=== PATIENT | male | born 1960 | race Caucasian/White ===

== ENCOUNTER 2016-09-17 17:31 | Emergency (ER) | payer OTHER ==
--- NOTE | 2016-09-17 18:21 | ED CLINICAL REPORT ---
Clinical Report - Physicians/Mid Levels [facility] [address] [place] [address] 09/17/2016 17:32 Patient: ALEX ALTAMIRANO Time Seen: 17:58; initial patient contact, initial documentation, patient care assumed. Arrived- By private vehicle. Historian- patient. HISTORY OF PRESENT ILLNESS Chief Complaint: BACK PAIN and CHRONIC BACK PAIN. Modifying factors- worsened by walking, rotation of the body to the right or left, bending over or lifting. Relieved by taking prescription medications. Not relieved by anything. It is described as being severe. It is described as being in the area of the mid lumbar spine, lower lumbar spine, right mid lumbar spine, right lower lumbar spine and right SI joint. It is described as radiating to the right hip. The quality is noted to be "pain" and similar to prior episodes. Onset- years ago and it is still present (worse 3 days ago). No bladder dysfunction, bowel dysfunction, sensory loss or motor loss. ( none). Patient denies an injury but injury to the head or neck. No other injury. Similar symptoms previously: Chronically, as bad. Recent medical care: The patient was seen recently in the office. ( went dr for mri and was told he had arthritis and pinched nerve, awaiting to get into ortho according to [facility], [facility]). REVIEW OF SYSTEMS No fever, difficulty with urination, urinary frequency, hematuria or difficulty breathing. No chest pain or abdominal pain. All systems otherwise negative, except as recorded above. PAST HISTORY See nurses notes. PROBLEMS: Insomnia [Active]. Carotid Artery Disease [Active]. Congestive Heart Failure [Active]. --17:50 Tracey Le R.N. Nerve, pinched. Bipolar Disorder. Upper Extremity Pain. Back Injury. Sciatica. Heart Disease. Insomnia. Substance Abuse. Back Pain. Arthritis. UTI - Urinary Tract Infection. Depression. Nausea. Costochondritis. URI. Migraine Headache. Dental Abscess. Gastroenteritis. Hypercholesterolemia. Dental Pain. Hypertension. Manic bipolar I disorder. --17:50 Tracey Le R.N. Arthritis. --17:50 Tracey Le R.N. ADDITIONAL SURGERIES: Back Surgery. Coronary Artery Bypass Graft. --17:50 Tracey Le R.N. SOCIAL HISTORY Light tobacco smoker. Occasional alcohol use. History of occasional drug use: marijuana. Is a local resident. FAMILY HISTORY Negative. ADDITIONAL NOTES The nursing notes have been reviewed with agreement regarding the chief complaint, HPI, ROS, PMH and patient medications and allergies. PHYSICAL EXAM Vital Signs: 09/17/2016 17:45 BP: 157/88. HR: 97. RR: 20. O2 saturation: 98%. Temp: 98 F. Pain level now: 05/29. Have been reviewed as normal and appear to be correct. Appearance: Alert. No acute distress. Neck: Normal inspection. Neck nontender. Painless ROM. CVS: Heart sounds normal. Pulses normal. Respiratory: No respiratory distress. Breath sounds normal. Abdomen: No visible injury. Soft and nontender. Moderately obese. Back: Abnormal inspection. Back tenderness present. Mild vertebral point tenderness over the mid and lower lumbar spine. Soft tissue tenderness in the right mid and lower lumbar area. No painless ROM. Mildly limited ROM in the back- in the lumbar spine: decreased flexion, right lateral bending, left lateral bending and rotation to the right and left. No muscle spasm in the back or CVA tenderness. Skin: Skin warm and dry. Normal skin color. No rash. Normal skin turgor. Extremities: Extremities exhibit normal ROM. Extremities nontender. Neuro: Oriented X 3. Mood/affect normal. No motor deficit. No sensory deficit. PROGRESS AND PROCEDURES Course of Care: 18:12 09/17/16. pt has long [facility] for frequent er visits, #32, and various narcs and controlled substances, see report for full details pt is well known to me and er staff. Patient counseled in person regarding the patient's stable condition, test results and diagnosis. 18:21. Differential Diagnosis: I considered Musculo-skeletal strain, contusion, disk protrusion, vertebral fracture, sacroiliac joint strain, sciatica, osteoarthritis, lumbar spondylosis, spinal stenosis and sacroiliac joint inflammation as a possible cause of back pain in this patient. This is a partial list of diagnoses considered. (substance abuse, chronic pain). Above considerations are based on history and physical exam. Differential diagnosis was discussed with patient. Disposition: Discharged home in good and improved condition (18:21). Condition: good and stable. CLINICAL IMPRESSION Chronic nontraumatic lumbar back pain. Sciatica present on the right. INSTRUCTIONS Warnings: GENERAL WARNINGS: Return or contact your physician immediately if your condition worsens or changes unexpectedly, if not improving as expected, or if other problems arise. SPECIFICALLY, return if you develop numbness or incontinence of feces (loss of bowel control) or urine (loss of bladder control). Prescription Medications: Toradol 10 mg tablets: Take 1 tablet orally every 6 hours as needed. Dispense fifteen (15). No refills. Substitution is permissible. Medrol Dosepak: take according to package directions. Dispense one (1) dosepak. No refills. Substitution is permissible. Follow-up: Follow up with your doctor in about one week even if well. Call for an appointment. Summary of care provided to patient. Understanding of the discharge instructions verbalized by patient. (Electronically signed by Phylicia Hassan A.R.NBharati 09/17/2016 22:35)
--- NOTE | 2016-09-17 18:21 | ED NURSING NOTES ---
Clinical Report - Nurses [facility] [address] [place] [address] 09/17/2016 17:32 Patient: ALEX ALTAMIRANO TRIAGE Triage time 17:45. Acuity: LEVEL 3. Chief Complaint: BACK PAIN and (Lower back pain, Chronic, pinched nerve. Bad for last days, tsoday worst.). Alert. No acute distress. KELLEY COMA SCORE: [place] Coma Scale: 15- eyes open spontaneously (4); best verbal response- oriented x 4 (5); best motor response- obeys commands (6). --17:53 Tracey Le R.N. 17:45 09/17/16. BP: 157/88. HR: 97. RR: 20. O2 saturation: 98%. Temp: 98 F. Pain level now: 05/29. --17:53 Tracey Le R.N. 17:45 09/17/16. BP: 157/88. HR: 97. RR: 20. O2 saturation: 98%. Temp: 98 F. Pain level now: 05/29. --17:53 Tracey Le R.N. Chief Complaint: (Had MRI 2 weeks ago). --17:57 Tracey Le R.N. Weight: 130.6 kg stated. Height/Length: 66 inches Per Patient. BMI: 46.5. --17:50 Tracey Le R.N. Medications Allopurinol Oral 40mg , 2x a day. AmLODIPine Besylate Oral (pt unsure of dose ). Aspirin Oral (Tablet 81 mg), daily. Atorvastatin Calcium Oral, daily (pt unsure of dose ). BuPROPion HCl Oral (pt unsure of dose ). Carvedilol Phosphate ER Oral (pt unsure of dose ). Cyclobenzaprine HCl Oral. Gabapentin Oral 300 mg, daily. Ketorolac Tromethamine Oral. Lasix Oral 40 mg, daily. Latuda Oral (pt unsure of dose ). Lisinopril Oral 20 mg, daily. Plavix Oral 75 mg, daily. Zofran Oral 4 mg, as needed. --17:48 Tracey Le R.N. Medication/allergy information source: the patient and patient's family. --17:53 Tracey Le R.N. Allergies Latex. Definite Moderate(rash) --17:48 Tracey Le R.N. History Arrived by private vehicle. Historian: patient and family. Primary physician (jeremy at [facility]). This is a recurrent problem. (3 days). ( Pinched nerve). No history of recent trauma. 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 (flexeril,). PAST MEDICAL HX: Tetanus status: unknown. SOCIAL HX: Light tobacco smoker (cigarette)- less than 1/2 a pack per day. Alcohol use; consumes beer occasionally. History of drug use: marijuana. Recently used drugs today. No infectious disease exposure. FALL RISK ASSESSMENT: Fall risk assessment completed. No fall risk identified. NUTRITIONAL RISK ASSESSMENT: The nutritional risk assessment revealed no deficiencies. FUNCTIONAL ASSESSMENT: Functional assessment: no impairments noted. LEARNING NEEDS ASSESSMENT: The learning needs assessment revealed no barriers. SKIN INTEGRITY ASSESSMENT: Skin integrity risk assessment completed. No skin integrity risk identified. --17:53 Tracey Le R.N. PROBLEMS: Insomnia [Active]. Carotid Artery Disease [Active]. Congestive Heart Failure [Active]. --17:50 Tracey Le R.N. Nerve, pinched. Bipolar Disorder. Upper Extremity Pain. Back Injury. Sciatica. Heart Disease. Insomnia. Substance Abuse. Back Pain. Arthritis. UTI - Urinary Tract Infection. Depression. Nausea. Costochondritis. URI. Migraine Headache. Dental Abscess. Gastroenteritis. Hypercholesterolemia. Dental Pain. Hypertension. Manic bipolar I disorder. --17:50 Tracey Le R.N. Arthritis. --17:50 Tracey Le R.N. ADDITIONAL SURGERIES: Back Surgery. Coronary Artery Bypass Graft. --17:50 Tracey Le R.N. Interventions ID band on patient. To room. --17:53 Tracey Le R.N. PHYSICAL ASSESSMENT Ambulatory to room. Patient gowned. GENERAL / NEURO / PSYCH: Alert. Oriented X 4. Appears in pain. RESPIRATORY: Respirations not labored. CVS: Capillary refill less than 2 seconds. GI / : Abdomen nontender. EXTREMITIES: Limited ROM present. Sensation intact in extremities. BACK: Limited ROM of the back. --17:56 Tracey Le R.N. NURSING PROGRESS NOTES Patient gowned. Head of bed elevated. Two patient identifiers checked. Call light placed in reach. Side rails up x 2. Bed placed in lowest position. Brakes of bed on. Patient ready for evaluation. --17:56 Tracey Le R.N. 18:40 09/17/2016 Decadron (Dexamethasone Sodium Phosphate) IM 8 mg given. Given in the left gluteus adelaide. Allergies verified and confirmed 5 rights. --20:06 Tracey Le R.N. 18:43 09/17/2016 Toradol (Ketorolac Tromethamine) IM 60 mg given. Given in the right gluteus adelaide. Allergies verified and confirmed 5 rights. --20:05 Tracey Le R.N. DISPOSITION / DISCHARGE 18:43. Condition at departure: improved. No learning barriers present. Discharge instructions provided and reviewed with the patient and spouse. Reviewed medication(s) side effects, precautions, dosing and course information. Patient verbalized understanding. Written instructions provided in Peruvian. The patient was discharged home and accompanied by spouse. He left the Emergency Department ambulatory and via private vehicle. Spouse driving. Medication list reviewed and validated. --20:07 Tracey Le R.N. 17:45 09/17/16. BP: 157/88. HR: 97. RR: 20. O2 saturation: 98%. Temp: 98 F. Pain level now: 05/29. --20:07 Tracey Le R.N. Locked/Released at 09/17/2016 20:18 by Tracey Le R.N.
--- NOTE | 2016-09-17 18:21 | ED NURSING NOTES ---
Clinical Report - Nurses [facility] [address] [place] [address] 09/17/2016 17:32 Patient: ALEX ALTAMIRANO TRIAGE Triage time 17:45. Acuity: LEVEL 3. Chief Complaint: BACK PAIN and (Lower back pain, Chronic, pinched nerve. Bad for last days, tsoday worst.). Alert. No acute distress. KELLEY COMA SCORE: [place] Coma Scale: 15- eyes open spontaneously (4); best verbal response- oriented x 4 (5); best motor response- obeys commands (6). --17:53 Tracey Le R.N. 17:45 09/17/16. BP: 157/88. HR: 97. RR: 20. O2 saturation: 98%. Temp: 98 F. Pain level now: 05/29. --17:53 Tracey Le R.N. 17:45 09/17/16. BP: 157/88. HR: 97. RR: 20. O2 saturation: 98%. Temp: 98 F. Pain level now: 05/29. --17:53 Tracey Le R.N. Chief Complaint: (Had MRI 2 weeks ago). --17:57 Tracey Le R.N. Weight: 130.6 kg stated. Height/Length: 66 inches Per Patient. BMI: 46.5. --17:50 Tracey Le R.N. Medications Allopurinol Oral 40mg , 2x a day. AmLODIPine Besylate Oral (pt unsure of dose ). Aspirin Oral (Tablet 81 mg), daily. Atorvastatin Calcium Oral, daily (pt unsure of dose ). BuPROPion HCl Oral (pt unsure of dose ). Carvedilol Phosphate ER Oral (pt unsure of dose ). Cyclobenzaprine HCl Oral. Gabapentin Oral 300 mg, daily. Ketorolac Tromethamine Oral. Lasix Oral 40 mg, daily. Latuda Oral (pt unsure of dose ). Lisinopril Oral 20 mg, daily. Plavix Oral 75 mg, daily. Zofran Oral 4 mg, as needed. --17:48 Tracey Le R.N. Medication/allergy information source: the patient and patient's family. --17:53 Tracey Le R.N. Allergies Latex. Definite Moderate(rash) --17:48 Tracey Le R.N. History Arrived by private vehicle. Historian: patient and family. Primary physician (jeremy at [facility]). This is a recurrent problem. (3 days). ( Pinched nerve). No history of recent trauma. 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 (flexeril,). PAST MEDICAL HX: Tetanus status: unknown. SOCIAL HX: Light tobacco smoker (cigarette)- less than 1/2 a pack per day. Alcohol use; consumes beer occasionally. History of drug use: marijuana. Recently used drugs today. No infectious disease exposure. FALL RISK ASSESSMENT: Fall risk assessment completed. No fall risk identified. NUTRITIONAL RISK ASSESSMENT: The nutritional risk assessment revealed no deficiencies. FUNCTIONAL ASSESSMENT: Functional assessment: no impairments noted. LEARNING NEEDS ASSESSMENT: The learning needs assessment revealed no barriers. SKIN INTEGRITY ASSESSMENT: Skin integrity risk assessment completed. No skin integrity risk identified. --17:53 Tracey Le R.N. PROBLEMS: Insomnia [Active]. Carotid Artery Disease [Active]. Congestive Heart Failure [Active]. --17:50 Tracey Le R.N. Nerve, pinched. Bipolar Disorder. Upper Extremity Pain. Back Injury. Sciatica. Heart Disease. Insomnia. Substance Abuse. Back Pain. Arthritis. UTI - Urinary Tract Infection. Depression. Nausea. Costochondritis. URI. Migraine Headache. Dental Abscess. Gastroenteritis. Hypercholesterolemia. Dental Pain. Hypertension. Manic bipolar I disorder. --17:50 Tracey Le R.N. Arthritis. --17:50 Tracey Le R.N. ADDITIONAL SURGERIES: Back Surgery. Coronary Artery Bypass Graft. --17:50 Tracey Le R.N. Interventions ID band on patient. To room. --17:53 Tracey Le R.N. PHYSICAL ASSESSMENT Ambulatory to room. Patient gowned. GENERAL / NEURO / PSYCH: Alert. Oriented X 4. Appears in pain. RESPIRATORY: Respirations not labored. CVS: Capillary refill less than 2 seconds. GI / : Abdomen nontender. EXTREMITIES: Limited ROM present. Sensation intact in extremities. BACK: Limited ROM of the back. --17:56 Tracey Le R.N. NURSING PROGRESS NOTES Patient gowned. Head of bed elevated. Two patient identifiers checked. Call light placed in reach. Side rails up x 2. Bed placed in lowest position. Brakes of bed on. Patient ready for evaluation. --17:56 Tracey Le R.N. 18:40 09/17/2016 Decadron (Dexamethasone Sodium Phosphate) IM 8 mg given. Given in the left gluteus adelaide. Allergies verified and confirmed 5 rights. --20:06 Tracey Le R.N. 18:43 09/17/2016 Toradol (Ketorolac Tromethamine) IM 60 mg given. Given in the right gluteus adelaide. Allergies verified and confirmed 5 rights. --20:05 Tracey Le R.N. DISPOSITION / DISCHARGE 18:43. Condition at departure: improved. No learning barriers present. Discharge instructions provided and reviewed with the patient and spouse. Reviewed medication(s) side effects, precautions, dosing and course information. Patient verbalized understanding. Written instructions provided in Scottish. The patient was discharged home and accompanied by spouse. He left the Emergency Department ambulatory and via private vehicle. Spouse driving. Medication list reviewed and validated. --20:07 Tracey Le R.N. 17:45 09/17/16. BP: 157/88. HR: 97. RR: 20. O2 saturation: 98%. Temp: 98 F. Pain level now: 05/29. --20:07 Tracey Le R.N. Locked/Released at 09/17/2016 20:18 by Tracey Le R.N.
--- NOTE | 2016-09-17 22:35 | ED DISCHARGE INSTRUCTIONS ---
Patient: ALEX ALTAMIRANO General Instructions [facility] VisitID: [id number] [place] [address] 56y, M Registration Date/Time: 09/17/2016 Chronic nontraumatic lumbar back pain. Sciatica present on the right. INSTRUCTIONS Warnings: GENERAL WARNINGS: Return or contact your physician immediately if your condition worsens or changes unexpectedly, if not improving as expected, or if other problems arise. SPECIFICALLY, return if you develop numbness or incontinence of feces (loss of bowel control) or urine (loss of bladder control). Prescription Medications: Toradol 10 mg tablets: Take 1 tablet orally every 6 hours as needed. Dispense fifteen (15). No refills. Substitution is permissible. Medrol Dosepak: take according to package directions. Dispense one (1) dosepak. No refills. Substitution is permissible. Follow-up: Follow up with your doctor in about one week even if well. Call for an appointment. Summary of care provided to patient. Understanding of the discharge instructions verbalized by patient. ADDITIONAL INFORMATION Back Pain [Acute Or Chronic] Back pain is usually caused by an injury to the muscles or ligaments of the spine. Sometimes the disks that separate each bone in the spine may bulge and cause pain by pressing on a nearby nerve. Back pain may also appear after a sudden twisting/bending force (such as in a car accident), after a simple awkward movement, or lifting something heavy with poor body positioning. In either case, muscle spasm is often present and adds to the pain. Acute back pain usually gets better in one to two weeks. Back pain related to disk disease, arthritis in the spinal joints or spinal stenosis (narrowing of the spinal canal) can become chronic and last for months or years. Unless you had a physical injury (for example, a car accident or fall) X-rays are usually not ordered for the initial evaluation of back pain. If pain continues and does not respond to medical treatment, x-rays and other tests may be performed at a later time. Home Care: You may need to stay in bed the first few days. But, as soon as possible, begin sitting or walking to avoid problems with prolonged bed rest (muscle weakness, worsening back stiffness and pain, blood clots in the legs). When in bed, try to find a position of comfort. A firm mattress is best. Try lying flat on your back with pillows under your knees. You can also try lying on your side with your knees bent up towards your chest and a pillow between your knees. Avoid prolonged sitting. This puts more stress on the lower back than standing or walking. During the first two days after injury, apply an ICE PACK to the painful area for 20 minutes every 2-4 hours. This will reduce swelling and pain. HEAT (hot shower, hot bath or heating pad) works well for muscle spasm. You can start with ice, then switch to heat after two days. Some patients feel best alternating ice and heat treatments. Use the one method that feels the best to you. You may use acetaminophen (Tylenol) or ibuprofen (Motrin, Advil) to control pain, unless another pain medicine was prescribed. [NOTE: If you have chronic liver or kidney disease or ever had a stomach ulcer or GI bleeding, talk with your doctor before using these medicines.] Be aware of safe lifting methods and do not lift anything over 15 pounds until all the pain is gone. Follow Up with your doctor or this facility if your symptoms do not start to improve after one week. Physical therapy may be needed. [NOTE: If X-rays were taken, they will be reviewed by a radiologist. You will be notified of any new findings that may affect your care.] Get Prompt Medical Attention if any of the following occur: Pain becomes worse or spreads to your legs Weakness or numbness in one or both legs Loss of bowel or bladder control Numbness in the groin or genital area Sciatica Sciatica ("Lumbar Radiculopathy") causes a pain that spreads from the lower back down into the buttock, hip and leg. Sometimes leg pain can occur without any back pain. Sciatica is due to irritation or pressure on a spinal nerve as it comes out of the spinal canal. This is most often due to a bulge or rupture of a nearby spinal disk (the cartilage cushion between each spinal bone), which presses on a nearby nerve. Other causes include spinal stenosis (narrowing of the spinal canal) and spasm of the pyriform muscle (a muscle in the buttocks that the sciatic nerve passes through). Sciatica may begin after a sudden twisting/bending force (such as in a car accident), or sometimes after a simple awkward movement. In either case, muscle spasm is commonly present and contributes to the pain. The diagnosis of sciatica is made from the symptoms and physical exam. Unless you had a physical injury (such as a car accident or fall), X-rays are usually not ordered for the initial evaluation of sciatica because the nerves and disks cannot be seen on an x-ray. If signs of a compressed nerve are present (for example, loss of tendon reflex or strength in the leg), an MRI (magnetic resonance imaging) scan will need to be scheduled as an outpatient. Most sciatica (80-90%) gets better with medicine, exercise, physical therapy. If symptoms continue after at least three months of medical treatment, surgery may be considered. Home Care: You may need to stay in bed the first few days. But, as soon as possible, begin sitting or walking to avoid problems with prolonged bed rest. When in bed, try to find a position of comfort. A firm mattress is best. Try lying flat on your back with pillows under your knees. You can also try lying on your side with your knees bent up towards your chest and a pillow between your knees. Avoid prolonged sitting. This puts more stress on the lower back than standing or walking. Some persons find relief with heat (hot shower, hot bath or heating pad) and massage, while others prefer cold packs (crushed or cubed ice in a plastic bag, wrapped in a towel). Try both and use the method that feels best for 20 minutes several times a day. You may use acetaminophen (Tylenol) or ibuprofen (Motrin, Advil) to control pain, unless another pain medicine was prescribed. [ NOTE: If you have chronic liver or kidney disease or ever had a stomach ulcer or GI bleeding, talk with your doctor before using these medicines.] Be aware of safe lifting methods and do not lift anything over 15 pounds until all the pain is gone. Follow Up with your doctor or this facility if your symptoms do not start to improve after one week. Physical therapy or further testing may be needed. [NOTE: If X-rays were taken, they will be reviewed by a radiologist. You will be notified of any new findings that may affect your care.] Get Prompt Medical Attention if any of the following occur: Pain becomes worse, not controlled by the prescribed medicine Weakness or numbness in one or both legs Numbness in the groin, genital area Loss of bowel or bladder control Ketorolac Tromethamine Oral tablet What is this medicine? KETOROLAC (elder toe ROLE ak) is a non-steroidal anti-inflammatory drug (NSAID). It is used for a short while to treat moderate to severe pain, including pain after surgery. It should not be used for more than 5 days. How should I use this medicine? Take this medicine by mouth with a full glass of water. Follow the directions on the prescription label. Take your medicine at regular intervals. Do not take your medicine more often than directed. Do not take more than the recommended dose. A special MedGuide will be given to you by the pharmacist with each prescription and refill. Be sure to read this information carefully each time. Talk to your commercial relationship manager regarding the use of this medicine in children. While this drug may be prescribed for children as young as 16 years of age for selected conditions, precautions do apply. Patients over 65 years old may have a stronger reaction and need a smaller dose. What side effects may I notice from receiving this medicine? Side effects that you should report to your doctor or health pet care technician as soon as possible: allergic reactions like skin rash, itching or hives, swelling of the face, lips, or tongue black or tarry stools breathing problems changes in vision chest pain high blood pressure nausea or vomiting redness, blistering, peeling or loosening of the skin, including inside the mouth severe abdominal pain slurred speech or weakness on one side of the body unexplained weight gain or swelling unusual bleeding or bruising unusually weak or tired yellowing of eyes or skin Side effects that usually do not require medical attention (report to your doctor or health pet care technician if they continue or are bothersome): diarrhea dizziness headache heartburn What may interact with this medicine? Do not take this medicine with any of the following medications: aspirin and aspirin-like medicines cidofovir methotrexate NSAIDs, medicines for pain and inflammation, like ibuprofen or naproxen pemetrexed probenecid This medicine may also interact with the following medications: alcohol alendronate alprazolam carbamazepine cyclosporine diuretics flavocoxid fluoxetine ginkgo lithium medicines for high blood pressure like enalapril medicines that affect platelets like pentoxifylline medicines that treat or prevent blood clots like heparin, warfarin muscle relaxants phenytoin steroid medicines like prednisone or cortisone thiothixene What if I miss a dose? If you miss a dose, take it as soon as you can. If it is almost time for your next dose, take only that dose. Do not take double or extra doses. Where should I keep my medicine? Keep out of the reach of children. Store at room temperature between 20 and 25 degrees C (68 and 77 degrees F). Throw away any unused medicine after the expiration date. What should I tell my health care provider before I take this medicine? They need to know if you have any of these conditions: asthma bleeding problems like hemophilia cigarette smoker drink more than 3 alcohol containing drinks a day heart disease or circulation problems such as heart failure or leg edema (fluid retention) high blood pressure kidney disease liver disease stomach bleeding or ulcers an unusual or allergic reaction to ketorolac, aspirin, other NSAIDs, other medicines, foods, dyes, or preservatives or trying to get breast-feeding What should I watch for while using this medicine? Tell your doctor or health pet care technician if your pain does not get better. Talk to your doctor before taking another medicine for pain. Do not treat yourself. This medicine does not prevent heart attack or stroke. In fact, this medicine may increase the chance of a heart attack or stroke. The chance may increase with longer use of this medicine and in people who have heart disease. If you take aspirin to prevent heart attack or stroke, talk with your doctor or health pet care technician. Do not take medicines such as ibuprofen and naproxen with this medicine. Side effects such as stomach upset, nausea, or ulcers may be more likely to occur. Many medicines available without a prescription should not be taken with this medicine. This medicine can cause ulcers and bleeding in the stomach and intestines at any time during treatment. Do not smoke cigarettes or drink alcohol. These increase irritation to your stomach and can make it more susceptible to damage from this medicine. Ulcers and bleeding can happen without warning symptoms and can cause . You may get drowsy or dizzy. Do not drive, use machinery, or do anything that needs mental alertness until you know how this medicine affects you. Do not stand or sit up quickly, especially if you are an older patient. This reduces the risk of dizzy or fainting spells. This medicine can cause you to bleed more easily. Try to avoid damage to your teeth and gums when you brush or floss your teeth. Methylprednisolone Oral tablet What is this medicine? METHYLPREDNISOLONE (meth ill pred NISS oh lone) is a corticosteroid. It is commonly used to treat inflammation of the skin, joints, lungs, and other organs. Common conditions treated include asthma, allergies, and arthritis. It is also used for other conditions, such as blood disorders and diseases of the adrenal glands. How should I use this medicine? Take this medicine by mouth with a drink of water. Follow the directions on the prescription label. Take it with food or milk to avoid stomach upset. If you are taking this medicine once a day, take it in the morning. Do not take more medicine than you are told to take. Do not suddenly stop taking your medicine because you may develop a severe reaction. Your doctor will tell you how much medicine to take. If your doctor wants you to stop the medicine, the dose may be slowly lowered over time to avoid any side effects. Talk to your commercial relationship manager regarding the use of this medicine in children. Special care may be needed. What side effects may I notice from receiving this medicine? Side effects that you should report to your doctor or health pet care technician as soon as possible: allergic reactions like skin rash, itching or hives, swelling of the face, lips, or tongue eye pain, decreased or blurred vision, or bulging eyes fever, sore throat, sneezing, cough, or other signs of infection, wounds that will not heal increased thirst mental depression, mood swings, mistaken feelings of self importance or of being mistreated pain in hips, back, ribs, arms, shoulders, or legs swelling of the ankles, feet, hands trouble passing urine or change in the amount of urine Side effects that usually do not require medical attention (report to your doctor or health pet care technician if they continue or are bothersome): confusion, excitement, restlessness headache nausea, vomiting skin problems, acne, thin and shiny skin weight gain What may interact with this medicine? Do not take this medicine with any of the following medications: mifepristone This medicine may also interact with the following medications: tacrolimus vaccines warfarin What if I miss a dose? If you miss a dose, take it as soon as you can. If it is almost time for your next dose, talk to your doctor or health pet care technician. You may need to miss a dose or take an extra dose. Do not take double or extra doses without advice. Where should I keep my medicine? Keep out of the reach of children. Store at room temperature between 20 and 25 degrees C (68 and 77 degrees F). Throw away any unused medicine after the expiration date. What should I tell my health care provider before I take this medicine? They need to know if you have any of these conditions: Stephenie's syndrome diabetes glaucoma heart problems or disease high blood pressure infection such as herpes, measles, tuberculosis, or chickenpox kidney disease liver disease mental problems myasthenia gravis osteoporosis seizures stomach ulcer or intestine disease including colitis and diverticulitis thyroid problem an unusual or allergic reaction to lactose, methylprednisolone, other medicines, foods, dyes, or preservatives or trying to get breast-feeding What should I watch for while using this medicine? Visit your doctor or health pet care technician for regular checks on your progress. If you are taking this medicine for a long time, carry an identification card with your name and address, the type and dose of your medicine, and your doctor's name and address. The medicine may increase your risk of getting an infection. Stay away from people who are sick. Tell your doctor or health pet care technician if you are around anyone with measles or chickenpox. If you are going to have surgery, tell your doctor or health pet care technician that you have taken this medicine within the last twelve months. Ask your doctor or health pet care technician about your diet. You may need to lower the amount of salt you eat. The medicine can increase your blood sugar. If you are a diabetic check with your doctor if you need help adjusting the dose of your diabetic medicine. You have been given the following additional information: Back Pain (Acute Or Chronic) Back Pain W/ Sciatica Ketorolac Tromethamine Oral tablet Methylprednisolone Oral tablet (Electronically signed by Phylicia Hassan A.R.N.P. 09/17/2016 22:35)
--- NOTE | 2016-09-17 22:35 | ED MED RECONCILIATION SUMMARY ---
Patient: ALEX ALTAMIRANO Medication Reconciliation Report [facility] VisitID: [id number] [place] [address] 56y, M Registration Date/Time: 09/17/2016 Weight: 130.6 kg Height/Length: 66 in. BMI: 46.5 ALLERGIES: Latex The patient's Home Medications are listed below: THE FOLLOWING MEDICATIONS NEED TO BE RECONCILED: Allopurinol Oral 40mg , 2x a day AmLODIPine Besylate Oral, pt unsure of dose Aspirin Oral (81 mg), daily Atorvastatin Calcium Oral, daily, pt unsure of dose BuPROPion HCl Oral, pt unsure of dose Carvedilol Phosphate ER Oral, pt unsure of dose Cyclobenzaprine HCl Oral Gabapentin Oral 300 mg, daily Ketorolac Tromethamine Oral Lasix Oral 40 mg, daily Latuda Oral, pt unsure of dose Lisinopril Oral 20 mg, daily Plavix Oral 75 mg, daily Zofran Oral 4 mg The source(s) of the original Home Medication information: patient patient's family member The following Medications were given to the patient in the Emergency Department: Toradol [IM] IM 60 mg, administered: 09/17/2016 6:43:00 PM Decadron [IM] IM 8 mg, administered: 09/17/2016 6:40:00 PM The following Medications were prescribed to the patient: Toradol 10 mg tablets: Take 1 tablet orally every 6 hours as needed. Dispense fifteen (15). No refills. Substitution is permissible. -- Phylicia Hassan A.R.N.P. Medrol Dosepak: take according to package directions. Dispense one (1) dosepak. No refills. Substitution is permissible. -- Phylicia Hassan A.R.N.P.
--- NOTE | 2016-09-17 22:35 | ED MAR SUMMARY ---
..... Medication Administration Record [facility] [address] [place] [address] Patient: ALEX ALTAMIRANO Visit ID: [id number] 56y, M Weight: 130.6 kg Height/Length: 66 in BMI: 46.5 ALLERGIES: Latex Given 18:40 09/17/2016 Tracey Le R.N. Medication Administered: DECADRON [IM] (DEXAMETHASONE SODIUM PHOSPHATE), Dose: 8 mg IM. Medication Ordered: Decadron IM 8 mg (NOW). Given 18:43 09/17/2016 Tracey Le R.N. Medication Administered: TORADOL [IM] (KETOROLAC TROMETHAMINE), Dose: 60 mg IM. Medication Ordered: Toradol IM 60 mg (NOW).
--- NOTE | 2016-09-17 22:35 | ED MED RECONCILIATION SUMMARY ---
Patient: ALEX ALTAMIRANO Medication Reconciliation Report [facility] VisitID: [id number] [place] [address] 56y, M Registration Date/Time: 09/17/2016 Weight: 130.6 kg Height/Length: 66 in. BMI: 46.5 ALLERGIES: Latex The patient's Home Medications are listed below: THE FOLLOWING MEDICATIONS NEED TO BE RECONCILED: Allopurinol Oral 40mg , 2x a day AmLODIPine Besylate Oral, pt unsure of dose Aspirin Oral (81 mg), daily Atorvastatin Calcium Oral, daily, pt unsure of dose BuPROPion HCl Oral, pt unsure of dose Carvedilol Phosphate ER Oral, pt unsure of dose Cyclobenzaprine HCl Oral Gabapentin Oral 300 mg, daily Ketorolac Tromethamine Oral Lasix Oral 40 mg, daily Latuda Oral, pt unsure of dose Lisinopril Oral 20 mg, daily Plavix Oral 75 mg, daily Zofran Oral 4 mg The source(s) of the original Home Medication information: patient patient's family member The following Medications were given to the patient in the Emergency Department: Toradol [IM] IM 60 mg, administered: 09/17/2016 6:43:00 PM Decadron [IM] IM 8 mg, administered: 09/17/2016 6:40:00 PM The following Medications were prescribed to the patient: Toradol 10 mg tablets: Take 1 tablet orally every 6 hours as needed. Dispense fifteen (15). No refills. Substitution is permissible. -- Phylicia Hassan A.R.N.P. Medrol Dosepak: take according to package directions. Dispense one (1) dosepak. No refills. Substitution is permissible. -- Phylicia Hassan A.R.N.P.
--- NOTE | 2016-09-17 22:35 | ED MAR SUMMARY ---
..... Medication Administration Record [facility] [address] [place] [address] Patient: ALEX ALTAMIRANO Visit ID: [id number] 56y, M Weight: 130.6 kg Height/Length: 66 in BMI: 46.5 ALLERGIES: Latex Given 18:40 09/17/2016 Tracey Le R.N. Medication Administered: DECADRON [IM] (DEXAMETHASONE SODIUM PHOSPHATE), Dose: 8 mg IM. Medication Ordered: Decadron IM 8 mg (NOW). Given 18:43 09/17/2016 Tracey Le R.N. Medication Administered: TORADOL [IM] (KETOROLAC TROMETHAMINE), Dose: 60 mg IM. Medication Ordered: Toradol IM 60 mg (NOW).
--- NOTE | 2016-09-17 22:35 | ED ORDER SUMMARY ---
..... Patient: ALEX ALTAMIRANO OrderSheet [facility] VisitID: [id number] [address] [place] [address] 56y, M Registration Date/Time: 09/17/2016 ORDER SHEET Weight: 130.6 kg (stated) Allergies: Latex GENERAL ORDERS: MEDICATION ORDERS: Toradol IM 60 mg (NOW) (18:23 09/17/2016 HBivens A.R.N.P.) (Ack 18:27 SRoberts R.N.) (20:05 SRoberts R.N.) Decadron IM 8 mg (NOW) (18:23 09/17/2016 HBivens A.R.N.P.) (Ack 18:27 SRoberts R.N.) (20:06 SRoberts R.N.) IV FLUIDS: ORDER SHEET NOTES: [Electronically signed by Tracey Le R.N. (20:18 09/17/2016)] [Electronically signed by Phylicia Hassan.R.N.P. (22:35 09/17/2016)] [Electronically locked/signed by Tracey Le R.N. (20:18 09/17/2016)]
--- NOTE | 2016-09-17 22:35 | ED ORDER SUMMARY ---
..... Patient: ALEX ALTAMIRANO OrderSheet VisitID: [id number] [address] [place] [address] 56y, M Registration Date/Time: 09/17/2016 ORDER SHEET Weight: 130.6 kg (stated) Allergies: Latex GENERAL ORDERS: MEDICATION ORDERS: Toradol IM 60 mg (NOW) (18:23 09/17/2016 HBivens A.R.N.P.) (Ack 18:27 SRoberts R.N.) (20:05 SRoberts R.N.) Decadron IM 8 mg (NOW) (18:23 09/17/2016 HBivens A.R.N.P.) (Ack 18:27 SRoberts R.N.) (20:06 SRoberts R.N.) IV FLUIDS: ORDER SHEET NOTES: [Electronically signed by Tracey Le R.N. (20:18 09/17/2016)] [Electronically signed by Phylicia Hassan.R.N.P. (22:35 09/17/2016)] [Electronically locked/signed by Tracey Le R.N. (20:18 09/17/2016)]
== END 2016-09-17 18:43 | disposition home or self-care (01) ==
LOC: ED SRH 17:31
DX: M54.41 Lumbago with sciatica, right side (principal); I10 Essential (primary) hypertension; I51.9 Heart disease, unspecified; F17.210 Nicotine dependence, cigarettes, uncomplicated; Z79.82 Long term (current) use of aspirin; Z79.899 Other long term (current) drug therapy; Z91.040 Latex allergy status

== ENCOUNTER 2016-09-26 19:29 | Emergency (ER) | payer OTHER ==
--- NOTE | 2016-09-26 20:46 | DIAGNOSTIC IMAGING REPORT ---
PROCEDURE: CT HEAD WITHOUT CONTRAST INDICATION: Frontal headache, initial encounter TECHNIQUE: Noncontrast axial images with sagittal and coronal reformations. COMPARISON: Head CT 02/18/2016 FINDINGS: Sulci and ventricular system are normal. Mild white matter chronic ischemic changes. 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 No evidence of acute intracranial process. Visualized mastoids and sinuses are clear. IMPRESSION: 1. No acute intracranial abnormality 2. Mild of white matter chronic ischemic changes 3. Findings discussed with Layla Rucker at 08:44 p.m.[facility] Time
--- NOTE | 2016-09-26 20:46 | DIAGNOSTIC IMAGING REPORT ---
PROCEDURE: CT HEAD WITHOUT CONTRAST INDICATION: Frontal headache, initial encounter TECHNIQUE: Noncontrast axial images with sagittal and coronal reformations. COMPARISON: Head CT 02/18/2016 FINDINGS: Sulci and ventricular system are normal. Mild white matter chronic ischemic changes. 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 No evidence of acute intracranial process. Visualized mastoids and sinuses are clear. IMPRESSION: 1. No acute intracranial abnormality 2. Mild of white matter chronic ischemic changes 3. Findings discussed with Layla Rucker at 08:44 p.m.[facility] Time
--- NOTE | 2016-09-26 20:53 | DIAGNOSTIC IMAGING REPORT ---
PROCEDURE: XR CHEST 2 VIEW INDICATION: CHEST PAIN, initial encounter TECHNIQUE: PA and lateral view. COMPARISON: Chest x-ray 04/14/2016 FINDINGS: Lungs are clear. CABG. Heart size, mediastinum and pulmonary vessels are normal. Bony thorax is unremarkable. IMPRESSION: 1. No acute changes 2. CABG
--- NOTE | 2016-09-27 06:11 | ED NURSING NOTES ---
Clinical Report - Nurses Formerly [facility] [address] [place] [address] 09/26/2016 19:30 Patient: ALEX ALTAMIRANO TRIAGE Triage time 19:39 Sep 26 2016. Acuity: LEVEL 3. Chief Complaint: HEADACHE. --19:42 Adrian Storm R.N. 19:39 09/26/16. BP: 102/79. HR: 90. RR: 18. O2 saturation: 97%. Temp: 97.6 F. Pain level now 03/29. --19:42 Adrian Storm R.N. Weight: 111.1 kg estimated. Height/Length: 69 inches Estimated. BMI: 36.2. --19:41 Adrian Storm R.N. Medications Allopurinol Oral 40mg , 2x a day. AmLODIPine Besylate Oral (pt unsure of dose ). Aspirin Oral (Tablet 81 mg), daily. Atorvastatin Calcium Oral, daily (pt unsure of dose ). BuPROPion HCl Oral (pt unsure of dose ). Carvedilol Phosphate ER Oral (pt unsure of dose ). Cyclobenzaprine HCl Oral. Gabapentin Oral 300 mg, daily. Ketorolac Tromethamine Oral. Lasix Oral 40 mg, daily. Latuda Oral (pt unsure of dose ). Lisinopril Oral 20 mg, daily. Plavix Oral 75 mg, daily. Zofran Oral 4 mg, as needed. --19:41 Adrian Storm R.N. Allergies Latex. Definite Moderate(rash) --19:41 Adrian Storm R.N. History Arrived by private vehicle. ( Pt reports ARORA that started a couple hours ago, he took ibuprofen but received little relief. pt concerned because he is feeling "spacey" last time this happened he had a quadruple bypass). The patient has had nausea. No vomiting, weakness or numbness. --19:42 Adrian Storm R.N. PROBLEMS: Insomnia [Active]. Carotid Artery Disease [Active]. Congestive Heart Failure [Active]. --19:41 Adrian Storm R.N. Heart Disease. --19:41 Adrian Storm R.N. ADDITIONAL SURGERIES: Back Surgery. Coronary Artery Bypass Graft. --19:41 Adrian Storm R.N. Interventions ID band on patient. To treatment room. --19:42 Adrian Storm R.N. NURSING PROGRESS NOTES EKG time: (1955). EKG was ordered, performed by a tech and shown to the ED physician. --19:57 Yefri Mederos, ER A P Supervisor 20:03 09/26/2016 Site #1 started via IV in the left antecubital space with an 20g angiocath, with aseptic technique; one attempt. Blood drawn: rainbow set. Saline lock flushed. --20:03 Adrian Storm R.N. ( POC glucose 123). --20:11 Adrian Storm R.N. 20:37 09/26/2016 Reglan (Metoclopramide HCl) IVP 10 mg given over 2 minute(s) via site #1. Allergies verified and confirmed 5 rights. IV patency established. IV site checked: no pain, redness, or swelling. IV flushed thoroughly pre- and post-medication administration. --20:37 Dmitri Davenport R.N. 20:53 09/26/2016 Tylenol (Acetaminophen) PO 650 mg given. Allergies verified and confirmed 5 rights. --20:53 Adrian Storm R.N. ( Pt unable to sit still, reports nausea has improved but pain is the same). --21:05 Adrian Storm R.N. 21:03 09/26/16. BP: 123/83. HR: 80. RR: 18. O2 saturation: 99%. Pain level now 1010. --21:05 Adrian Storm R.N. 19:25 09/26/16. BP: 115/81. O2 saturation: 98%. --21:10 Adrian Storm R.N. 21:20 09/26/2016 Toradol IVP 30 mg given over 2 minute(s) via site #1. Allergies verified and confirmed 5 rights. IV patency established. IV site checked: no pain, redness, or swelling. IV flushed thoroughly pre- and post-medication administration. IVP given by RN. --21:35 Adrian Storm R.N. 21:47 09/26/2016 Dilaudid (HYDROmorphone HCl PF) IVP 0.5 mg given. via site #1. Allergies verified, confirmed 5 rights and sedative warning given. IV patency established. IV site checked: no pain, redness, or swelling. IV flushed thoroughly pre- and post-medication administration. IVP given by RN. --21:48 Adrian Storm R.N. 22:05 09/26/16. BP: 107/48. HR: 88. O2 saturation: 95%. --22:05 Adrian Storm R.N. Care transferred and report received (from MERVIN Campbell). --22:26 Lidia Khan R.N. The patient reports no complaints and he is calm and resting quietly. ( first contact with pt.). --22:35 Lidia Khan R.N. 22:34 09/26/16. BP: 112/68. HR: 88. RR: 18. O2 saturation: 95%. Pain level now 02/26. --22:35 Lidia Khan R.N. Care transferred and report given (to Dmitri Grijalva RN). --23:13 Lidia Khan R.N. Cardiac rhythm: sinus rhythm. The patient is calm and resting quietly. GENERAL / NEURO / PSYCH: Alert. Oriented X 4. RESPIRATORY: No respiratory distress. SKIN: Skin is warm and dry. Skin color within normal limits. --23:37 Dmitri Davenport R.N. 23:32 09/26/16. BP: 122/68. HR: 84. RR: 15. O2 saturation: 97% on room air. Pain level now: 01/27. --23:37 Dmitri Davenport R.N. 00:26. Patient ID band checked for patient name and birthdate: patient confirmed. Blood samples drawn by nurse ; labeled in presence of the patient and sent to lab: rainbow set: cardiac enzymes (2nd set). Initial blood discarded and additional blood sent to lab. --00:29 Dmitri Davenport R.N. The patient is calm and resting quietly. GENERAL / NEURO / PSYCH: Alert. Oriented X 4. RESPIRATORY: No respiratory distress. SKIN: Skin is warm and dry. Skin color within normal limits. --00:29 Dmitri Davenport R.N. Cardiac rhythm: sinus rhythm. The patient is calm and resting quietly. Overall patient status- he states feels better. GENERAL / NEURO / PSYCH: Alert. Oriented X 4. RESPIRATORY: No respiratory distress. SKIN: Skin is warm and dry. Skin color within normal limits. --01:24 Dmitri Davenport R.N. 01:23 09/27/16. BP: 115/45. HR: 72. RR: 18. O2 saturation: 94% on room air. Pain level now: 0/10. --01:24 Dmitri Davenport R.N. The patient is calm and resting quietly. GENERAL / NEURO / PSYCH: Alert. Oriented X 4. RESPIRATORY: No respiratory distress. SKIN: Skin is warm and dry. Skin color within normal limits. --02:39 Dmitri Davenport R.N. 02:38 09/27/16. BP: 116/73. HR: 81. RR: 17. O2 saturation: 92% on room air. Pain level now: 0/10. --02:39 Dmitri Davenport R.N. Cardiac rhythm: sinus rhythm. The patient is sleeping. RESPIRATORY: No respiratory distress. SKIN: Skin color within normal limits. --04:17 Dmitri Davenport R.N. 04:15 09/27/16. BP: 138/78. HR: 72. RR: 18. O2 saturation: 96% on room air. --04:17 Dmitri Davenport R.N. 05:02 materials engineering technician with pt for blood draw. --05:27 Dmitri Davenport R.N. 06:02 09/27/16. BP: 130/63. HR: 80. O2 saturation: 98% on room air. Temp: 98.1 F (oral). --06:03 Hien Sexton 06:33. The patient is calm and resting quietly. Overall patient status is improved- he states feels better. GENERAL / NEURO / PSYCH: Alert. Oriented X 4. RESPIRATORY: No respiratory distress. SKIN: Skin is warm and dry. Skin color within normal limits. --07:26 Dmitri Davenport R.N. DISPOSITION / DISCHARGE Departure time: 06:36. Condition at departure: stable. No learning barriers present. Discharge instructions provided and reviewed with the patient. Patient verbalized understanding. Written instructions provided in [place]. The patient was discharged home and accompanied by spouse. He left the Emergency Department ambulatory and via private vehicle. FALL RISK ASSESSMENT: Fall risk assessment completed. No fall risk identified. --06:36 Dmitri Davenport R.N. 06:25 09/27/16. BP: 153/72. HR: 76. RR: 17. O2 saturation: 96% on room air. Temp: 98.4 F (oral). Pain level now: 08/29. --06:36 Dmitri Davenport R.N. 06:31 09/27/2016 Site #1 removed upon discharge. Catheter intact. Bandage applied. --07:27 Dmitri Davenport R.N. Locked/Released at 09/27/2016 7:28 by Dmitri Davenport R.N.
--- NOTE | 2016-09-27 06:11 | ED ORDER SUMMARY ---
..... Patient: ALEX ALTAMIRANO OrderSheet [facility] VisitID: [id number] [place] [address] 56y, M Registration Date/Time: 09/26/2016 ORDER SHEET Weight: 111.1 kg (estimated) Allergies: Latex GENERAL ORDERS: EKG - ER Stat (19:36 09/26/2016 DBeyer R.N. per protocol) (Ack 19:56 CHagerty ER Winterizer) (19:56 CHagerty ER Winterizer) Chest 2V Urgent (19:43 09/26/2016 EKoroleva P.A.-C) (Ack 19:56 CHagerty ER Winterizer) (20:38 MCampbell) Bull Rider (Continuous) (19:43 09/26/2016 EKoroleva P.A.-C) (20:24 DBeyer R.N.) CT Head wo Cont Urgent (19:43 09/26/2016 EKoroleva P.A.-C) (Ack 19:56 CHagerty ER Winterizer) (20:38 MCampbell) Cardiac Panel Stat (19:43 09/26/2016 EKoroleva P.A.-C) (Ack 19:56 CHagerty ER Winterizer) (0:27 CHagerty ER Winterizer) PTT Urgent (19:43 09/26/2016 EKoroleva P.A.-C) (Ack 19:56 CHagerty ER Winterizer) (0:27 CHagerty ER Winterizer) PT with INR Urgent (19:43 09/26/2016 EKoroleva P.A.-C) (Ack 19:56 CHagerty ER Winterizer) (0:27 CHagerty ER Winterizer) POC Glucose (19:45 09/26/2016 EKoroleva P.A.-C) (20:24 DBeyer R.N.) BNP Urgent (19:56 09/26/2016 EKoroleva P.A.-C) (Ack 19:56 CHagerty ER Winterizer) (0:27 CHagerty ER Winterizer) Rapid Influenza Screen (Nasal Pharyngeal) (n) Urgent (20:46 09/26/2016 EKoroleva P.A.-C) (Ack 20:57 CHagerty ER Winterizer) (0:27 CHagerty ER Winterizer) Amylase Urgent (21:36 09/26/2016 EKoroleva P.A.-C) (Ack 21:40 CHagerty ER Winterizer) (0:27 CHagerty ER Winterizer) Lipase Urgent (21:36 09/26/2016 EKoroleva P.A.-C) (Ack 21:40 CHagerty ER Winterizer) (0:27 CHagerty ER Winterizer) CSF, Protein Urgent (22:05 09/26/2016 EKoroleva P.A.-C) (Ack 22:09 CHagerty ER Winterizer) (0:27 CHagerty ER Winterizer) CSF, Glucose Urgent (22:05 09/26/2016 EKoroleva P.A.-C) (Ack 22:09 CHagerty ER Winterizer) (0:27 CHagerty ER Winterizer) CSF, Culture Urgent (22:05 09/26/2016 EKoroleva P.A.-C) (Ack 22:09 CHagerty ER Winterizer) (0:27 CHagerty ER Winterizer) CSF, Cell Count Urgent (22:05 09/26/2016 EKoroleva P.A.-C) (Ack 22:09 CHagerty ER Winterizer) (0:27 CHagerty ER Winterizer) CPK (draw at midnight) Urgent (23:24 09/26/2016 Vasu KAYE) (Ack 23:31 CHagerty ER Winterizer) (0:28 CHagerty ER Winterizer) Troponin-I (draw at midnight) Urgent (23:24 09/26/2016 Vasu KAYE) (Ack 23:31 CHagerty ER Winterizer) (0:28 CHagerty ER Winterizer) CPK (repeat setdraw at 0500) Urgent (01:39 09/27/2016 Vasu KAYE) (Ack 1:47 CHagerty ER Winterizer) (5:05 CHagerty ER Winterizer) Troponin-I (repeat setdraw at 0500) Urgent (01:40 09/27/2016 Vasu KAYE) (Ack 1:47 CHagerty ER Winterizer) (5:05 CHagerty ER Winterizer) MEDICATION ORDERS: Tylenol PO 650 mg (NOW) (20:46 09/26/2016 EKoroleva P.A.-C) (20:53 DBeyer R.N.) IV FLUIDS: IV Saline Lock (19:43 09/26/2016 EKoroleva P.A.-C) (20:03 DBeyer R.N.) Reglan IV 10 mg (NOW) (20:34 09/26/2016 EKoroleva P.A.-C) (20:37 JQuiveyoli R.N.) Toradol IV 30 mg (NOW) (21:14 09/26/2016 EKoroleva P.A.-C) (21:35 DBeyer R.N.) Dilaudid IV 0.5 mg (HIGH ALERT MEDICATION, NOW) (21:40 09/26/2016 EKoroleva P.A.-C) (21:48 DBeyer R.N.) ORDER SHEET NOTES: [Electronically signed by Dmitri Davenport R.N. (07:28 09/27/2016)] [Electronically signed by Dino Ham MD (11:53 10/05/2016)] [Electronically locked/signed by Dmitri Davenport R.N. (07:28 09/27/2016)]
--- NOTE | 2016-09-27 06:11 | ED CLINICAL REPORT ---
Clinical Report - Physicians/Mid Levels [facility] [address] [place] [address] 09/26/2016 19:30 Patient: ALEX ALTAMIRANO Time Seen: 19:56 Sep 26 2016. Arrived- By private vehicle. Historian- patient. HISTORY OF PRESENT ILLNESS Chief Complaint: HEADACHE. Is still present. This started just prior to arrival. It was abrupt in onset. It is described as similar to previous headaches. Located in the frontal region. No neck pain. At its maximum, severity described as severe. When seen in the E.D., severity described as severe. The patient has had photophobia and nausea. (frontal headache prior to arrival, 2 hours. With no neck pain, no fevers, no recent injury. Previous history of headaches, similar nature, however not as severe. Last and he had such a severe headache, he had quadruple bypass. Reports possible OR this last summer of 2015. Denies any shortness of breath or chest pain, syncope or dizziness. Reports nausea, denies neck pain.). REVIEW OF SYSTEMS No fever, muscle aches, sinus pressure or sore throat. No chest pain or pain, difficulty breathing, chills or fever. No sweats, calf pain, cough, difficulty breathing or pedal edema. No palpitations, abdominal pain, constipation, diarrhea or vomiting. No urinary problems. The patient has had nausea. All systems otherwise negative, except as recorded above. SOCIAL HISTORY Never smoker. No alcohol use or drug use. FAMILY HISTORY Denies family medical history. ADDITIONAL NOTES The nursing notes have been reviewed. PHYSICAL EXAM Vital Signs: 09/26/2016 19:39 BP: 102/79. HR: 90. RR: 18. O2 saturation: 97%. Temp: 97.6 F. Appearance: Alert. Eyes: Pupils equal, round and reactive to light. Eyes normal inspection. ENT: Ears normal. Neck: Normal inspection. CVS: Normal heart rate and rhythm. Heart sounds normal. Respiratory: No respiratory distress. Breath sounds normal. Abdomen: Soft and nontender. No abdominal tenderness. Back: Normal inspection. No CVA tenderness. Neuro: Oriented X 3. Alert. Mood/affect normal. Speech normal. LABS, X-RAYS, AND EKG EKG: EKG time: (1955). No acute process. No acute ischemia. Rate: 91. Q waves present. Normal ST and T waves and QT. The study has been interpreted contemporaneously. The EKG appears to be a good tracing. Chest X-ray: (IMPRESSION: 1. No acute changes 2. CABG Electronically Final signed by:Chris Edmonds MD 09/26/2016 8:53:40 PM). CT Head: (IMPRESSION: 1. No acute intracranial abnormality 2. Mild of white matter chronic ischemic changes 3. Findings discussed with Layla Rucker at 08:44 p.m., [place] Standard Time Electronically Final signed by:Chris Edmonds MD 09/26/2016 8:45:47 PM). Laboratory Tests: CPK: (SHWETA: 09/27/2016 05:00) ( [facility] 09/27/2016 05:39) Final results Test Result Flag Units (Reference) CPK 479 H U/L (24-260) CK-MB 11.8 H ng/mL (0.5-3.2) %CKMB 2.5 % (0.0-4.0) TROPONIN I <0.05 L ng/mL (0.00-1.5) TROPONIN REFERENCE RANGE:<0.1 NEGATIVE0.1-1.5 INDETERMINANT>1.5 POSITIVE CPK: (SHWETA: 09/27/2016 00:26) ( [facility] 09/27/2016 01:06) Final results Test Result Flag Units (Reference) CPK 477 H U/L (24-260) MMB REFLEXED. RUNNING NOW. DONE IN APPROX 13 MIN. TROPONIN I <0.05 L ng/mL (0.00-1.5) TROPONIN REFERENCE RANGE:<0.1 NEGATIVE0.1-1.5 INDETERMINANT>1.5 POSITIVE CK-MB 11.7 H ng/mL (0.5-3.2) %CKMB 2.5 % (0.0-4.0) CBC w Diff: (SHWETA: 09/26/2016 20:00) ( [facility] 09/26/2016 20:15) Final results Test Result Flag Units (Reference) WHITE BLOOD COUNT 12.2 H K/uL (4.5-11.5) RED BLOOD COUNT 4.43 L M/uL (4.50-5.90) HEMOGLOBIN 14.3 gm/dL (13.5-17.5) HEMATOCRIT 41.6 % (41.0-53.0) MEAN CELL VOLUME 94 fL (80-100) MEAN CORPUSCULAR HGB 32 pg (26-34) MEAN CORPUSCULAR HGB CONC 34 g/dL (31-37) RED CELL DISTRIBUTION WIDTH 14.9 H % (11.6-14.8) PLATELET COUNT 266 K/uL (150-400) NEUTROPHIL % 66.8 % (50-75) LYMPH % 21.7 L % (25-40) MONO % 7.2 % (3-14) EOSINOPHIL % 4.0 % (0-4) BASOPHIL % 0.3 % (0-2) PT with INR: (SHWETA: 09/26/2016 20:00) ( [facility] 09/26/2016 20:16) Final results Test Result Flag Units (Reference) INR 1.0 (0.8-1.2) Low Intensity Therapy: INR 1.5-2.0 PT range 18.5-23.1Mod.Intensity Therapy: INR 2.0-3.0 PT range 23.1-31.5High Intensity Therapy: INR 2.5-3.5 PT range 27.4-35.5High Intensity Therapy 2: INR 3.0-4.0 PT range 31.5-39.3 APTT 28 SECONDS (24-34) Lipase: (SHWETA: 09/26/2016 21:57) ( [facility] 09/26/2016 22:05) Final results Test Result Flag Units (Reference) LIPASE 310 U/L (73-393) AMYLASE 116 H U/L (25-115) BNP: (SHWETA: 09/26/2016 20:00) ( MsgRcvd 09/26/2016 20:42) Final results Test Result Flag Units (Reference) B-TYPE NATRIURETIC PEPTIDE 20.6 pg/ml (5-100) CHEM 13 PANEL: (SHWETA: 09/26/2016 20:00) ( MsgRcvd 09/26/2016 21:36) Final results Test Result Flag Units (Reference) CPK 534 H U/L (24-260) TROPONIN I <0.05 L ng/mL (0.00-1.5) TROPONIN REFERENCE RANGE:<0.1 NEGATIVE0.1-1.5 INDETERMINANT>1.5 POSITIVE GLUCOSE 133 H mg/dL (70-110) BUN 31 H mg/dL (7-18) CREATININE 1.8 H mg/dL (0.6-1.3) Estimated GFR 41.69 mL/min Estimated GFR- 50.53 mL/min Note: Persistent reduction over 3 months in eGFR<60 mL/min/1.73 m2 defines CKD. Patients with eGFR values>=60 mL/min/1.73 m2 may also have CKD if evidence ofpersistent proteinuria. Additional information may be foundat www.kidney.org. SODIUM 139 mmol/L (136-145) POTASSIUM 4.0 mmol/L (3.5-5.1) CHLORIDE 102 mmol/L (98-107) CARBON DIOXIDE 25 mmol/L (21-32) CALCIUM 8.3 L mg/dL (8.5-10.1) TOTAL PROTEIN 7.1 g/dL (6.4-8.2) ALBUMIN 3.8 g/dL (3.3-5.0) BILIRUBIN, TOTAL 0.4 mg/dL (0.0-1.0) ALKALINE PHOSPHATASE 78 U/L (46-116) AST (SGOT) 26 U/L (15-37) ALT (SGPT) 54 U/L (12-78) MAGNESIUM 1.9 mg/dL (1.8-2.4) CK-MB 35.1 H ng/mL (0.5-3.2) %CKMB 6.6 H % (0.0-4.0) CSF, Cell Count: (SHWETA: 09/26/2016 22:34) ( [facility] 09/26/2016 22:52) Final results Test Result Flag Units (Reference) CSF GLUCOSE 71 mg/dL (40-75) CSF PROTEIN 40.5 mg/dL (15-45) CSF TOTAL VOLUME 4.0 CC TUBE # 4 COLOR COLORLESS APPEARANCE CLEAR CSF WBC 3.75 WBC/mm3 (0-5) CSF RBC 0 RBC/mm3 (0-5) CSF, Culture: (SHWETA: 09/26/2016 22:34) ( [facility] 09/26/2016 23:03) IP Test Result Flag Units (Reference) GRAM STAIN, CSF DATE: 09/26/16 EPITHELIAL CELLS: NONE NO CELLS/NO BACTERIA: NO CELLS OR BACTERIA SEEN WHITE BLOOD CELLS: NONE Rapid Influenza Screen: (SHWETA: 09/26/2016 20:51) ( [facility] 09/26/2016 21:23) Final results SPECIMEN DESCRIPTION: N Test Result Flag Units (Reference) RAPID INFLUENZA SCREEN DATE: 09/26/16 INFLUENZA A: NEGATIVE SCREEN FOR INFLUENZA A INFLUENZA B: NEGATIVE SCREEN FOR INFLUENZA B RAPID INFLUENZA NEGATIVE FOR "A" "B". . PROGRESS AND PROCEDURES Lumbar Puncture: Time-out completed immediately before the procedure. Lumbar puncture performed by me. Risks, benefits and alternatives were discussed. Consent was obtained from patient. Sterile technique was used. Local lidocaine anesthesia was used. The area was cleansed with Betadine. Patient was positioned right side down. A 22g needle was used. No complications observed. Opening pressure- 22 cm H2O. (This was performed by dc - ELIAN). Course of Care: Here in the ER patient continued to have headache, the CT of the head was ordered upon arrival, as well as EKG, chest x-ray. Such were unremarkable, his CK-MB is elevated, however so is his creatinine function. He had an episode of emesis here, with signs of leukocytosis, With no left shift. Case was discussed with Dr. Ham, who also saw the patient, and a lumbar puncture was performed after signed consent. . 09/26/2016 22:34 BP: 112/68. HR: 88. RR: 18. O2 saturation: 95%. 09/26/2016 22:05 BP: 107/48. HR: 88. O2 saturation: 95%. 11:53. Patient is stable. Symptoms almost gone. Vital signs have been reviewed. Physical exam findings are improved. Alert. No acute distress. Breath sounds normal. No respiratory distress. Normal heart rate and rhythm. Heart sounds normal. Abdomen soft and nontender. Skin warm and dry. Consult obtained from cardiology. Manuela Villalba I reviewed the results the patient's studies with her. She feels that we should do a third set of cardiac enzymes at 5 AM. She feels that if these are not elevated that it would be safe to discharge the patient home with treatment for his headache and that he can follow-up with his funeral director and embalmer on an outpatient basis. Case discussed. Phone consult only. Patient/family counseled. Old medical records reviewed. Disposition: Discharged. Condition: stable. CLINICAL IMPRESSION Acute headache. Acute headache. Renal insufficiency. INSTRUCTIONS No driving or operating machinery while taking medication. Sedative medication was given during your visit. Rest. Warnings: Further evaluation is necessary. GENERAL WARNINGS: Return or contact your physician immediately if your condition worsens or changes unexpectedly, if not improving as expected, or if other problems arise. Your Current Medications: CONTINUE TAKING THE FOLLOWING MEDICATIONS: Allopurinol Oral : 40mg 2x a day. AmLODIPine Besylate Oral : pt unsure of dose. Aspirin Oral : Tablet 81 mg, daily. Atorvastatin Calcium Oral : daily, pt unsure of dose. BuPROPion HCl Oral : pt unsure of dose. Carvedilol Phosphate ER Oral : pt unsure of dose. Cyclobenzaprine HCl Oral. Gabapentin Oral : 300 mg daily. Ketorolac Tromethamine Oral. Lasix Oral : 40 mg daily. Latuda Oral : pt unsure of dose. Lisinopril Oral : 20 mg daily. Plavix Oral : 75 mg daily. Zofran Oral : 4 mg, prn. Follow-up: Follow up with your doctor AGUSTÍN KANG tomorrow in one day as scheduled. Follow up with a funeral director and embalmer Paolo Monsivais MD - Contact his office at: in two days. Call for an appointment. Understanding of the discharge instructions verbalized by patient. (Electronically signed by Dino Ham MD 10/05/2016 11:53)
--- NOTE | 2016-09-27 06:11 | ED ORDER SUMMARY ---
..... Patient: ALEX ALTAMIRANO OrderSheet [facility] VisitID: [id number] [place] [address] 56y, M Registration Date/Time: 09/26/2016 ORDER SHEET Weight: 111.1 kg (estimated) Allergies: Latex GENERAL ORDERS: EKG - ER Stat (19:36 09/26/2016 DBeyer R.N. per protocol) (Ack 19:56 CHagerty ER Sustainability Coordinator) (19:56 CHagerty ER Sustainability Coordinator) Chest 2V Urgent (19:43 09/26/2016 EKoroleva P.A.-C) (Ack 19:56 CHagerty ER Sustainability Coordinator) (20:38 MCampbell) Teacher Vocal (Continuous) (19:43 09/26/2016 EKoroleva P.A.-C) (20:24 DBeyer R.N.) CT Head wo Cont Urgent (19:43 09/26/2016 EKoroleva P.A.-C) (Ack 19:56 CHagerty ER Sustainability Coordinator) (20:38 MCampbell) Cardiac Panel Stat (19:43 09/26/2016 EKoroleva P.A.-C) (Ack 19:56 CHagerty ER Sustainability Coordinator) (0:27 CHagerty ER Sustainability Coordinator) PTT Urgent (19:43 09/26/2016 EKoroleva P.A.-C) (Ack 19:56 CHagerty ER Sustainability Coordinator) (0:27 CHagerty ER Sustainability Coordinator) PT with INR Urgent (19:43 09/26/2016 EKoroleva P.A.-C) (Ack 19:56 CHagerty ER Sustainability Coordinator) (0:27 CHagerty ER Sustainability Coordinator) POC Glucose (19:45 09/26/2016 EKoroleva P.A.-C) (20:24 DBeyer R.N.) BNP Urgent (19:56 09/26/2016 EKoroleva P.A.-C) (Ack 19:56 CHagerty ER Sustainability Coordinator) (0:27 CHagerty ER Sustainability Coordinator) Rapid Influenza Screen (Nasal Pharyngeal) (n) Urgent (20:46 09/26/2016 EKoroleva P.A.-C) (Ack 20:57 CHagerty ER Sustainability Coordinator) (0:27 CHagerty ER Sustainability Coordinator) Amylase Urgent (21:36 09/26/2016 EKoroleva P.A.-C) (Ack 21:40 CHagerty ER Sustainability Coordinator) (0:27 CHagerty ER Sustainability Coordinator) Lipase Urgent (21:36 09/26/2016 EKoroleva P.A.-C) (Ack 21:40 CHagerty ER Sustainability Coordinator) (0:27 CHagerty ER Sustainability Coordinator) CSF, Protein Urgent (22:05 09/26/2016 EKoroleva P.A.-C) (Ack 22:09 CHagerty ER Sustainability Coordinator) (0:27 CHagerty ER Sustainability Coordinator) CSF, Glucose Urgent (22:05 09/26/2016 EKoroleva P.A.-C) (Ack 22:09 CHagerty ER Sustainability Coordinator) (0:27 CHagerty ER Sustainability Coordinator) CSF, Culture Urgent (22:05 09/26/2016 EKoroleva P.A.-C) (Ack 22:09 CHagerty ER Sustainability Coordinator) (0:27 CHagerty ER Sustainability Coordinator) CSF, Cell Count Urgent (22:05 09/26/2016 EKoroleva P.A.-C) (Ack 22:09 CHagerty ER Sustainability Coordinator) (0:27 CHagerty ER Sustainability Coordinator) CPK (draw at midnight) Urgent (23:24 09/26/2016 Vasu KAYE) (Ack 23:31 CHagerty ER Sustainability Coordinator) (0:28 CHagerty ER Sustainability Coordinator) Troponin-I (draw at midnight) Urgent (23:24 09/26/2016 Vasu KAYE) (Ack 23:31 CHagerty ER Sustainability Coordinator) (0:28 CHagerty ER Sustainability Coordinator) CPK (repeat setdraw at 0500) Urgent (01:39 09/27/2016 Vaus KAYE) (Ack 1:47 CHagerty ER Sustainability Coordinator) (5:05 CHagerty ER Sustainability Coordinator) Troponin-I (repeat setdraw at 0500) Urgent (01:40 09/27/2016 Vasu KAYE) (Ack 1:47 CHagerty ER Sustainability Coordinator) (5:05 CHagerty ER Sustainability Coordinator) MEDICATION ORDERS: Tylenol PO 650 mg (NOW) (20:46 09/26/2016 EKoroleva P.A.-C) (20:53 DBeyer R.N.) IV FLUIDS: IV Saline Lock (19:43 09/26/2016 EKoroleva P.A.-C) (20:03 DBeyer R.N.) Reglan IV 10 mg (NOW) (20:34 09/26/2016 EKoroleva P.A.-C) (20:37 JQuiveyoli R.N.) Toradol IV 30 mg (NOW) (21:14 09/26/2016 EKoroleva P.A.-C) (21:35 DBeyer R.N.) Dilaudid IV 0.5 mg (HIGH ALERT MEDICATION, NOW) (21:40 09/26/2016 EKoroleva P.A.-C) (21:48 DBeyer R.N.) ORDER SHEET NOTES: [Electronically signed by Dmitri Davenport R.N. (07:28 09/27/2016)] [Electronically signed by Dino Ham MD (11:53 10/05/2016)] [Electronically locked/signed by Dmitri Davenport R.N. (07:28 09/27/2016)]
--- NOTE | 2016-10-05 11:53 | ED MAR SUMMARY ---
..... Medication Administration Record [facility] [address] [place] [address] Patient: ALEX ALTAMIRANO Visit ID: [id number] 56y, M Weight: 111.1 kg Height/Length: 69 in BMI: 36.2 ALLERGIES: Latex Given 20:37 09/26/2016 Dmitri Davenport R.N. Medication Administered: REGLAN [IVP] (METOCLOPRAMIDE HCL), Dose: 10 mg IVP over 2 minute(s), Site: #1 left AC. Medication Ordered: Reglan IV 10 mg (NOW). Given 20:53 09/26/2016 Ardian Storm RShaneNShane Medication Administered: TYLENOL [PO] (ACETAMINOPHEN), Dose: 650 mg PO. Medication Ordered: Tylenol PO 650 mg (NOW). Given 21:20 09/26/2016 Adrian Storm R.NShane Medication Administered: TORADOL [IVP], Dose: 30 mg IVP over 2 minute(s), Site: #1 left AC. Medication Ordered: Toradol IV 30 mg (NOW). Given 21:47 09/26/2016 Adrian Storm RShaneNShane Medication Administered: DILAUDID [IVP] (HYDROMORPHONE HCL PF), Dose: 0.5 mg IVP, Site: #1 left AC. Medication Ordered: Dilaudid IV 0.5 mg (HIGH ALERT MEDICATION, NOW).
--- NOTE | 2016-10-05 11:53 | ED MAR SUMMARY ---
..... Medication Administration Record [facility] [address] [place] [address] Patient: ALEX ALTAMIRANO Visit ID: [id number] 56y, M Weight: 111.1 kg Height/Length: 69 in BMI: 36.2 ALLERGIES: Latex Given 20:37 09/26/2016 Dmitri Davenport R.N. Medication Administered: REGLAN [IVP] (METOCLOPRAMIDE HCL), Dose: 10 mg IVP over 2 minute(s), Site: #1 left AC. Medication Ordered: Reglan IV 10 mg (NOW). Given 20:53 09/26/2016 Adrian Storm RShaneNShane Medication Administered: TYLENOL [PO] (ACETAMINOPHEN), Dose: 650 mg PO. Medication Ordered: Tylenol PO 650 mg (NOW). Given 21:20 09/26/2016 Adrian Storm R.NShane Medication Administered: TORADOL [IVP], Dose: 30 mg IVP over 2 minute(s), Site: #1 left AC. Medication Ordered: Toradol IV 30 mg (NOW). Given 21:47 09/26/2016 Adrian Storm RShaneNShane Medication Administered: DILAUDID [IVP] (HYDROMORPHONE HCL PF), Dose: 0.5 mg IVP, Site: #1 left AC. Medication Ordered: Dilaudid IV 0.5 mg (HIGH ALERT MEDICATION, NOW).
--- NOTE | 2016-10-05 11:53 | ED MED RECONCILIATION SUMMARY ---
Patient: ALEX ALTAMIRANO Medication Reconciliation Report [facility] VisitID: [id number] [address] [place] [address] 56y, M Registration Date/Time: 09/26/2016 Weight: 111.1 kg Height/Length: 69 in. BMI: 36.2 ALLERGIES: Latex The patient's Home Medications are listed below: CONTINUE TAKING THE FOLLOWING MEDICATIONS: Allopurinol Oral 40mg , 2x a day AmLODIPine Besylate Oral, pt unsure of dose Aspirin Oral (81 mg), daily Atorvastatin Calcium Oral, daily, pt unsure of dose BuPROPion HCl Oral, pt unsure of dose Carvedilol Phosphate ER Oral, pt unsure of dose Cyclobenzaprine HCl Oral Gabapentin Oral 300 mg, daily Ketorolac Tromethamine Oral Lasix Oral 40 mg, daily Latuda Oral, pt unsure of dose Lisinopril Oral 20 mg, daily Plavix Oral 75 mg, daily Zofran Oral 4 mg The source(s) of the original Home Medication information: Not obtained. The following Medications were given to the patient in the Emergency Department: Reglan [IVP] IVP 10 mg, administered: 09/26/2016 8:37:00 PM Tylenol [PO] PO 650 mg, administered: 09/26/2016 8:53:00 PM Toradol [IVP] IVP 30 mg, administered: 09/26/2016 9:20:00 PM Dilaudid [IVP] IVP 0.5 mg, administered: 09/26/2016 9:47:00 PM The following Medications were prescribed to the patient: None.
--- NOTE | 2016-10-05 11:53 | ED DISCHARGE INSTRUCTIONS ---
Patient: ALEX ALTAMIRANO General Instructions [facility] VisitID: [id number] [place] [address] 56y, M Registration Date/Time: 09/26/2016 Acute headache. Acute headache. Renal insufficiency. INSTRUCTIONS No driving or operating machinery while taking medication. Sedative medication was given during your visit. Rest. Warnings: Further evaluation is necessary. GENERAL WARNINGS: Return or contact your physician immediately if your condition worsens or changes unexpectedly, if not improving as expected, or if other problems arise. Your Current Medications: CONTINUE TAKING THE FOLLOWING MEDICATIONS: Allopurinol Oral : 40mg 2x a day. AmLODIPine Besylate Oral : pt unsure of dose. Aspirin Oral : Tablet 81 mg, daily. Atorvastatin Calcium Oral : daily, pt unsure of dose. BuPROPion HCl Oral : pt unsure of dose. Carvedilol Phosphate ER Oral : pt unsure of dose. Cyclobenzaprine HCl Oral. Gabapentin Oral : 300 mg daily. Ketorolac Tromethamine Oral. Lasix Oral : 40 mg daily. Latuda Oral : pt unsure of dose. Lisinopril Oral : 20 mg daily. Plavix Oral : 75 mg daily. Zofran Oral : 4 mg, prn. Follow-up: Follow up with your doctor AGUSTÍN KANG tomorrow in one day as scheduled. Follow up with a grid caster Paolo Monsivais MD - Contact his office at: in two days. Call for an appointment. Understanding of the discharge instructions verbalized by patient. ADDITIONAL INFORMATION Headache [Unspecified] The cause of your headache today is not clear, but it does not appear to be the sign of any serious illness. Under stress, some people tense the muscles of their shoulder, neck and scalp without knowing it. If this condition lasts long enough, a TENSION HEADACHE can occur. A MIGRAINE HEADACHE is caused by changes in blood flow to the brain. A migraine attack may be triggered by emotional stress, hormone changes during the menstrual cycle, oral contraceptives, alcohol use, certain foods containing tyramine, eye strain, weather changes, missing meals, lack of sleep or oversleeping. Other causes of headache include a viral illness with high fever, head injury with concussion, sinus, ear or throat infection, dental pain and TMJ (jaw joint) pain. More serious but less common causes of headache include stroke, brain hemorrhage, brain tumor, meningitis and encephalitis. Home Care: If you were given pain medicine for this headache, do not drive yourself home. Arrange for a ride, instead. When you get home, try to sleep. You should feel much better when you wake up. Apply heat to the back of your neck to relieve neck muscle spasm. Migraine headaches may respond best to an ice pack on the forehead or at the base of the skull. If you are having nausea or vomiting, follow a light diet until your headache is relieved. If you have a migraine type headache, use sunglasses when in the daylight or around bright indoor lighting until symptoms improve. Bright glaring light can worsen this kind of headache. Follow Up with your doctor if the headache is not better within the next 24 hours. If you have frequent headaches you should discuss a treatment plan with your primary care doctor. By being aware of the earliest signs of headache, and starting treatment right away, you may be able to stop the pain yourself. Get Prompt Medical Attention if any of the following occur: Worsening of your head pain or no improvement within 24 hours Repeated vomiting (unable to keep liquids down) Fever of 100.4F (38C) or higher, or as directed by your healthcare provider Stiff neck Extreme drowsiness, confusion or fainting Dizziness, vertigo (dizziness with spinning sensation) Weakness of an arm or leg or one side of the face Difficulty with speech or vision Renal Insufficiency The role of the kidneys is to remove waste products and excess water from the body. When the kidneys do not function normally, waste products build up in the blood.The early stage of this process is called renal insufficiency . If renal insufficiency worsens it can lead to chronic renal failure. This allows excess water, waste and toxic substances to build up in the body. This can become a threat to life, requiring dialysis or a kidney transplant to stay alive. Diabetes is the leading causes of renal insufficiency. Other causes include high blood pressure, hardening of the arteries, lupus, inflammation of the blood vessels (vasculitis), prior viral and bacterial infections, and others. Certain ewis-mez-wyfjnmu pain medicines can cause renal failure when taken often over a long period of time. These include aspirin, ibuprofen (Advil, Motrin) and related anti-inflammatory medicines. Home Care: If you have diabetes, talk to your doctor about the quality of your blood sugar control.Ask about any changes needed to your diet or medicines. If you have high blood pressure: Take your blood pressure medicine. Take up a regular exercise program that you enjoy.Check with your doctor to be sure your planned exercise program is right for you. Reduce your salt (sodium) intake.Your doctor can tell you how much salt per day is safe for you. If you are overweight, talk to your doctor about a weight loss plan. If you smoke, you must quit.Smoking worsens kidney disease.Talk to your doctor about ways to help you quit.For more information, visit the following links: www.smokefree.gov/pubs/clearing_the_air.pdf www.smokefree.gov www.[employer].com Talk to your doctor about any dietary restrictions advised. In general, it is advisable to limit protein, salt, potassium and phosphorus.Avoid excess fluids. Do not add salt at the table and avoid salty foods.A calcium supplement may be prescribed to protect your bones from osteoporosis. Avoid the following over the counter medicines, or consult your doctor before using: Aspirin and anti-inflammatory drugs such as ibuprofen (Advil, Motrin), naprosyn (Aleve); [Short term use of acetaminophen (Tylenol) for fever or pain is okay.] Laxatives and antacids containing magnesium or aluminum (Mylanta, Maalox) Avoid Fleet or phosphosoda enemas which contain phosphorus Certain stomach acid-blocking medicine such as cimetidine (Tagamet), ranitidine (Zantac) Decongestants containing pseudoephedrine (such as some forms of Sudafed or Actifed) Herbal supplements Follow Up with your doctor or as advised by our staff. Contact one of the following for more information. [place] [phone] www.aakp.org National Kid[employer] Foundation www.kidney.org Return Promptly or contact your doctor if any of the following occurs: Nausea or vomiting Severe weakness, dizziness, fainting, drowsiness or confusion Chest pain or shortness of breath Unexpected weight gain or swelling in the legs, ankles or around the eyes Heart beating fast, slow or irregularly Decrease or loss in urine output Headache [Unspecified] The cause of your headache today is not clear, but it does not appear to be the sign of any serious illness. Under stress, some people tense the muscles of their shoulder, neck and scalp without knowing it. If this condition lasts long enough, a TENSION HEADACHE can occur. A MIGRAINE HEADACHE is caused by changes in blood flow to the brain. A migraine attack may be triggered by emotional stress, hormone changes during the menstrual cycle, oral contraceptives, alcohol use, certain foods containing tyramine, eye strain, weather changes, missing meals, lack of sleep or oversleeping. Other causes of headache include a viral illness with high fever, head injury with concussion, sinus, ear or throat infection, dental pain and TMJ (jaw joint) pain. More serious but less common causes of headache include stroke, brain hemorrhage, brain tumor, meningitis and encephalitis. Home Care: If you were given pain medicine for this headache, do not drive yourself home. Arrange for a ride, instead. When you get home, try to sleep. You should feel much better when you wake up. Apply heat to the back of your neck to relieve neck muscle spasm. Migraine headaches may respond best to an ice pack on the forehead or at the base of the skull. If you are having nausea or vomiting, follow a light diet until your headache is relieved. If you have a migraine type headache, use sunglasses when in the daylight or around bright indoor lighting until symptoms improve. Bright glaring light can worsen this kind of headache. Follow Up with your doctor if the headache is not better within the next 24 hours. If you have frequent headaches you should discuss a treatment plan with your primary care doctor. By being aware of the earliest signs of headache, and starting treatment right away, you may be able to stop the pain yourself. Get Prompt Medical Attention if any of the following occur: Worsening of your head pain or no improvement within 24 hours Repeated vomiting (unable to keep liquids down) Fever of 100.4F (38C) or higher, or as directed by your healthcare provider Stiff neck Extreme drowsiness, confusion or fainting Dizziness, vertigo (dizziness with spinning sensation) Weakness of an arm or leg or one side of the face Difficulty with speech or vision You have been given the following additional information: Headache, Unspecified Renal Insufficiency Headache, Unspecified No driving or operating machinery while taking medication. Sedative medication was given during your visit. Rest. (Electronically signed by Dino Ham MD 10/05/2016 11:53)
--- NOTE | 2016-10-05 11:53 | ED DISCHARGE INSTRUCTIONS ---
Patient: ALEX ALTAMIRANO General Instructions [facility] VisitID: [id number] [place] [address] 56y, M Registration Date/Time: 09/26/2016 Acute headache. Acute headache. Renal insufficiency. INSTRUCTIONS No driving or operating machinery while taking medication. Sedative medication was given during your visit. Rest. Warnings: Further evaluation is necessary. GENERAL WARNINGS: Return or contact your physician immediately if your condition worsens or changes unexpectedly, if not improving as expected, or if other problems arise. Your Current Medications: CONTINUE TAKING THE FOLLOWING MEDICATIONS: Allopurinol Oral : 40mg 2x a day. AmLODIPine Besylate Oral : pt unsure of dose. Aspirin Oral : Tablet 81 mg, daily. Atorvastatin Calcium Oral : daily, pt unsure of dose. BuPROPion HCl Oral : pt unsure of dose. Carvedilol Phosphate ER Oral : pt unsure of dose. Cyclobenzaprine HCl Oral. Gabapentin Oral : 300 mg daily. Ketorolac Tromethamine Oral. Lasix Oral : 40 mg daily. Latuda Oral : pt unsure of dose. Lisinopril Oral : 20 mg daily. Plavix Oral : 75 mg daily. Zofran Oral : 4 mg, prn. Follow-up: Follow up with your doctor AGUSTÍN KANG tomorrow in one day as scheduled. Follow up with a network security architect Paolo Monsivais MD - Contact his office at: in two days. Call for an appointment. Understanding of the discharge instructions verbalized by patient. ADDITIONAL INFORMATION Headache [Unspecified] The cause of your headache today is not clear, but it does not appear to be the sign of any serious illness. Under stress, some people tense the muscles of their shoulder, neck and scalp without knowing it. If this condition lasts long enough, a TENSION HEADACHE can occur. A MIGRAINE HEADACHE is caused by changes in blood flow to the brain. A migraine attack may be triggered by emotional stress, hormone changes during the menstrual cycle, oral contraceptives, alcohol use, certain foods containing tyramine, eye strain, weather changes, missing meals, lack of sleep or oversleeping. Other causes of headache include a viral illness with high fever, head injury with concussion, sinus, ear or throat infection, dental pain and TMJ (jaw joint) pain. More serious but less common causes of headache include stroke, brain hemorrhage, brain tumor, meningitis and encephalitis. Home Care: If you were given pain medicine for this headache, do not drive yourself home. Arrange for a ride, instead. When you get home, try to sleep. You should feel much better when you wake up. Apply heat to the back of your neck to relieve neck muscle spasm. Migraine headaches may respond best to an ice pack on the forehead or at the base of the skull. If you are having nausea or vomiting, follow a light diet until your headache is relieved. If you have a migraine type headache, use sunglasses when in the daylight or around bright indoor lighting until symptoms improve. Bright glaring light can worsen this kind of headache. Follow Up with your doctor if the headache is not better within the next 24 hours. If you have frequent headaches you should discuss a treatment plan with your primary care doctor. By being aware of the earliest signs of headache, and starting treatment right away, you may be able to stop the pain yourself. Get Prompt Medical Attention if any of the following occur: Worsening of your head pain or no improvement within 24 hours Repeated vomiting (unable to keep liquids down) Fever of 100.4F (38C) or higher, or as directed by your healthcare provider Stiff neck Extreme drowsiness, confusion or fainting Dizziness, vertigo (dizziness with spinning sensation) Weakness of an arm or leg or one side of the face Difficulty with speech or vision Renal Insufficiency The role of the kidneys is to remove waste products and excess water from the body. When the kidneys do not function normally, waste products build up in the blood.The early stage of this process is called renal insufficiency . If renal insufficiency worsens it can lead to chronic renal failure. This allows excess water, waste and toxic substances to build up in the body. This can become a threat to life, requiring dialysis or a kidney transplant to stay alive. Diabetes is the leading causes of renal insufficiency. Other causes include high blood pressure, hardening of the arteries, lupus, inflammation of the blood vessels (vasculitis), prior viral and bacterial infections, and others. Certain edgd-ena-gcbbouu pain medicines can cause renal failure when taken often over a long period of time. These include aspirin, ibuprofen (Advil, Motrin) and related anti-inflammatory medicines. Home Care: If you have diabetes, talk to your doctor about the quality of your blood sugar control.Ask about any changes needed to your diet or medicines. If you have high blood pressure: Take your blood pressure medicine. Take up a regular exercise program that you enjoy.Check with your doctor to be sure your planned exercise program is right for you. Reduce your salt (sodium) intake.Your doctor can tell you how much salt per day is safe for you. If you are overweight, talk to your doctor about a weight loss plan. If you smoke, you must quit.Smoking worsens kidney disease.Talk to your doctor about ways to help you quit.For more information, visit the following links: www.smokefree.gov/pubs/clearing_the_air.pdf www.smokefree.gov www.[employer].com Talk to your doctor about any dietary restrictions advised. In general, it is advisable to limit protein, salt, potassium and phosphorus.Avoid excess fluids. Do not add salt at the table and avoid salty foods.A calcium supplement may be prescribed to protect your bones from osteoporosis. Avoid the following over the counter medicines, or consult your doctor before using: Aspirin and anti-inflammatory drugs such as ibuprofen (Advil, Motrin), naprosyn (Aleve); [Short term use of acetaminophen (Tylenol) for fever or pain is okay.] Laxatives and antacids containing magnesium or aluminum (Mylanta, Maalox) Avoid Fleet or phosphosoda enemas which contain phosphorus Certain stomach acid-blocking medicine such as cimetidine (Tagamet), ranitidine (Zantac) Decongestants containing pseudoephedrine (such as some forms of Sudafed or Actifed) Herbal supplements Follow Up with your doctor or as advised by our staff. Contact one of the following for more information. [place] [phone] www.aakp.org National Kidney Foundation www.kidney.org Return Promptly or contact your doctor if any of the following occurs: Nausea or vomiting Severe weakness, dizziness, fainting, drowsiness or confusion Chest pain or shortness of breath Unexpected weight gain or swelling in the legs, ankles or around the eyes Heart beating fast, slow or irregularly Decrease or loss in urine output Headache [Unspecified] The cause of your headache today is not clear, but it does not appear to be the sign of any serious illness. Under stress, some people tense the muscles of their shoulder, neck and scalp without knowing it. If this condition lasts long enough, a TENSION HEADACHE can occur. A MIGRAINE HEADACHE is caused by changes in blood flow to the brain. A migraine attack may be triggered by emotional stress, hormone changes during the menstrual cycle, oral contraceptives, alcohol use, certain foods containing tyramine, eye strain, weather changes, missing meals, lack of sleep or oversleeping. Other causes of headache include a viral illness with high fever, head injury with concussion, sinus, ear or throat infection, dental pain and TMJ (jaw joint) pain. More serious but less common causes of headache include stroke, brain hemorrhage, brain tumor, meningitis and encephalitis. Home Care: If you were given pain medicine for this headache, do not drive yourself home. Arrange for a ride, instead. When you get home, try to sleep. You should feel much better when you wake up. Apply heat to the back of your neck to relieve neck muscle spasm. Migraine headaches may respond best to an ice pack on the forehead or at the base of the skull. If you are having nausea or vomiting, follow a light diet until your headache is relieved. If you have a migraine type headache, use sunglasses when in the daylight or around bright indoor lighting until symptoms improve. Bright glaring light can worsen this kind of headache. Follow Up with your doctor if the headache is not better within the next 24 hours. If you have frequent headaches you should discuss a treatment plan with your primary care doctor. By being aware of the earliest signs of headache, and starting treatment right away, you may be able to stop the pain yourself. Get Prompt Medical Attention if any of the following occur: Worsening of your head pain or no improvement within 24 hours Repeated vomiting (unable to keep liquids down) Fever of 100.4F (38C) or higher, or as directed by your healthcare provider Stiff neck Extreme drowsiness, confusion or fainting Dizziness, vertigo (dizziness with spinning sensation) Weakness of an arm or leg or one side of the face Difficulty with speech or vision You have been given the following additional information: Headache, Unspecified Renal Insufficiency Headache, Unspecified No driving or operating machinery while taking medication. Sedative medication was given during your visit. Rest. (Electronically signed by Dino Ham MD 10/05/2016 11:53)
--- NOTE | 2016-10-05 11:53 | ED MED RECONCILIATION SUMMARY ---
Patient: ALEX ALTAMIRANO Medication Reconciliation Report Located Within [facility] VisitID: [id number] [address] [place] [address] 56y, M Registration Date/Time: 09/26/2016 Weight: 111.1 kg Height/Length: 69 in. BMI: 36.2 ALLERGIES: Latex The patient's Home Medications are listed below: CONTINUE TAKING THE FOLLOWING MEDICATIONS: Allopurinol Oral 40mg , 2x a day AmLODIPine Besylate Oral, pt unsure of dose Aspirin Oral (81 mg), daily Atorvastatin Calcium Oral, daily, pt unsure of dose BuPROPion HCl Oral, pt unsure of dose Carvedilol Phosphate ER Oral, pt unsure of dose Cyclobenzaprine HCl Oral Gabapentin Oral 300 mg, daily Ketorolac Tromethamine Oral Lasix Oral 40 mg, daily Latuda Oral, pt unsure of dose Lisinopril Oral 20 mg, daily Plavix Oral 75 mg, daily Zofran Oral 4 mg The source(s) of the original Home Medication information: Not obtained. The following Medications were given to the patient in the Emergency Department: Reglan [IVP] IVP 10 mg, administered: 09/26/2016 8:37:00 PM Tylenol [PO] PO 650 mg, administered: 09/26/2016 8:53:00 PM Toradol [IVP] IVP 30 mg, administered: 09/26/2016 9:20:00 PM Dilaudid [IVP] IVP 0.5 mg, administered: 09/26/2016 9:47:00 PM The following Medications were prescribed to the patient: None.
== END 2016-09-27 06:36 | disposition home or self-care (01) ==
LOC: ED SRH 19:29
DX: R51 Headache (principal); N28.9 Disorder of kidney and ureter, unspecified; R11.2 Nausea with vomiting, unspecified; H53.149 Visual discomfort, unspecified; Z79.82 Long term (current) use of aspirin; Z79.899 Other long term (current) drug therapy
CPT/HCPCS: 80222; 81344; 90074; 90100; 90134; 90309; 90616; 90617; 91320; 91400; 92070; 92235; 92530; 92610; 92653; 92720; 94001; 94060; 95030; 95059

== ENCOUNTER 2016-10-19 18:07 | Emergency (ER) | payer OTHER ==
--- NOTE | 2016-10-19 21:26 | ED CLINICAL REPORT ---
Clinical Report - Physicians/Mid Levels [facility] [address] [place] [address] 10/19/2016 18:08 Patient: ALEX ALTAMIRANO Time Seen: 18:12. Arrived- By private vehicle. Historian- patient. HISTORY OF PRESENT ILLNESS Chief Complaint: CHEST PAIN. This started about 1 1/2 hours ago and is still present but is improving. Onset during light activity. At its maximum, severity described as moderate. When seen in the E.D., severity described as moderate. Modifying factors- worsened by movement and deep breaths. Not relieved by anything. It is described as sharp and "pain" and it is described as located in the central chest area. No nausea, vomiting, difficulty breathing or diaphoresis. Similar symptoms previously: Many times. Recent medical care: Not recently seen/assessed. REVIEW OF SYSTEMS No fever, chills, cough, pedal edema or calf pain. No fainting episodes, headache, sore throat, blurred vision or abdominal pain. No black stools, difficulty with urination, skin rash, enlarged lymph nodes or joint pain. No bloody stools. All systems otherwise negative, except as recorded above. PAST HISTORY Problems: Morbid obesity. Diabetes Mellitus. Headache. Renal Insufficiency. Arthritis. Nerve, pinched. Bipolar Disorder. Sciatica. Insomnia. Substance Abuse. Depression. Costochondritis. Tension-Type Headache. Migraine Headache. Dental Abscess. Gastroenteritis. Hypercholesterolemia. Dental Pain. Hypertension. Manic bipolar I disorder. Additional Surgeries: Angioplasty of blood vessel. Back Surgery. Coronary Artery Bypass Graft. Medications: MetFORMIN HCl Oral 500 mg, daily. Allopurinol Oral 40mg , 2x a day. AmLODIPine Besylate Oral (pt unsure of dose ). Aspirin Oral (Tablet 81 mg), daily. Atorvastatin Calcium Oral, daily (pt unsure of dose ). Carvedilol Phosphate ER Oral (pt unsure of dose ). Cyclobenzaprine HCl Oral. Gabapentin Oral 300 mg, daily. Ketorolac Tromethamine Oral. Lasix Oral 40 mg, daily. Latuda Oral (pt unsure of dose ). Lisinopril Oral 20 mg, daily. Plavix Oral 75 mg, daily. Allergies: Latex. Definite Moderate(rash). SOCIAL HISTORY Smoker- current status unknown. History of drug use: marijuana. No alcohol use. ADDITIONAL NOTES The nursing notes have been reviewed. PHYSICAL EXAM Vital Signs: 10/19/2016 18:15 BP: 122/58. HR: 85. RR: 24. O2 saturation: 100%. Temp: 98.5 F. Pain level now: 5/10. Have been reviewed. Appearance: Alert. Oriented X3. No acute distress. Eyes: Pupils equal, round and reactive to light. Eyes normal inspection. ENT: Nose normal. Neck: Normal inspection. CVS: Normal heart rate and rhythm. Heart sounds normal. Pulses normal. Respiratory: No respiratory distress. Breath sounds normal. Chest nontender. Abdomen: Nontender. Severely obese. Back: Normal external inspection. Skin: Skin warm and dry. Normal skin color. No rash. Normal skin turgor. Extremities: Extremities exhibit normal ROM. No lower extremity edema. Neuro: Oriented X 3. No motor deficit. No sensory deficit. LABS, X-RAYS, AND EKG EKG: EKG time: (1831). No acute ischemia. Normal sinus rhythm. Rate: 84. Normal P waves. Normal LAKIA. Normal QRS complex. Normal axis. Normal QT and QTc. Non-specific ST segment / T wave abnormalities. Prior EKG unavailable. The study has been interpreted contemporaneously by me. The study has been independently viewed by me. The EKG appears to be a good tracing. I agree with and confirm the computer reading of the EKG. Rhythm Strip #1: Time: (1816). Rate= 89. Normal sinus rhythm. Regular rhythm. Narrow QRS complexes. No ectopy. Conduction normal. Normal ST segments and T waves. The study was interpreted by me. Laboratory Tests: CBC w Diff: (SHWETA: 10/19/2016 18:43) ( MsgRcvd 10/19/2016 18:54) Final results Test Result Flag Units (Reference) WHITE BLOOD COUNT 10.0 K/uL (4.5-11.5) RED BLOOD COUNT 3.97 L M/uL (4.50-5.90) HEMOGLOBIN 12.8 L gm/dL (13.5-17.5) HEMATOCRIT 37.3 L % (41.0-53.0) MEAN CELL VOLUME 94 fL (80-100) MEAN CORPUSCULAR HGB 32 pg (26-34) MEAN CORPUSCULAR HGB CONC 34 g/dL (31-37) RED CELL DISTRIBUTION WIDTH 14.6 % (11.6-14.8) PLATELET COUNT 210 K/uL (150-400) NEUTROPHIL % 67.5 % (50-75) LYMPH % 19.2 L % (25-40) MONO % 8.9 % (3-14) EOSINOPHIL % 3.9 % (0-4) BASOPHIL % 0.5 % (0-2) Troponin-I: (SHWETA: 10/19/2016 20:39) ( [facility] 10/19/2016 21:22) Final results Test Result Flag Units (Reference) TROPONIN I 0.07 ng/mL (0.00-1.5) TROPONIN REFERENCE RANGE:<0.1 NEGATIVE0.1-1.5 INDETERMINANT>1.5 POSITIVE CHEM 13 PANEL: (SHWETA: 10/19/2016 18:43) ( [facility] 10/19/2016 19:30) Final results Test Result Flag Units (Reference) GLUCOSE 152 H mg/dL (70-110) BUN 55 H mg/dL (7-18) CREATININE 2.5 H mg/dL (0.6-1.3) Estimated GFR 28.54 mL/min Estimated GFR- 34.59 mL/min Note: Persistent reduction over 3 months in eGFR<60 mL/min/1.73 m2 defines CKD. Patients with eGFR values>=60 mL/min/1.73 m2 may also have CKD if evidence ofpersistent proteinuria. Additional information may be foundat www.kidney.org. SODIUM 140 mmol/L (136-145) POTASSIUM 4.4 mmol/L (3.5-5.1) CHLORIDE 105 mmol/L (98-107) CARBON DIOXIDE 25 mmol/L (21-32) CALCIUM 8.3 L mg/dL (8.5-10.1) TOTAL PROTEIN 7.0 g/dL (6.4-8.2) ALBUMIN 3.3 g/dL (3.3-5.0) BILIRUBIN, TOTAL 0.5 mg/dL (0.0-1.0) ALKALINE PHOSPHATASE 71 U/L (46-116) AST (SGOT) 33 U/L (15-37) ALT (SGPT) 39 U/L (12-78) MAGNESIUM 2.1 mg/dL (1.8-2.4) CPK 861 H U/L (24-260) CK-MB 20.1 H ng/mL (0.5-3.2) %CKMB 2.3 % (0.0-4.0) TROPONIN I 0.10 ng/mL (0.00-1.5) TROPONIN REFERENCE RANGE:<0.1 NEGATIVE0.1-1.5 INDETERMINANT>1.5 POSITIVE . Pulse Oximetry: 10/19/2016 18:15 O2 saturation: 100%. (FIO2 - room air). Interpretation: normal. PROGRESS AND PROCEDURES Course of Care: PT was given ASA, Dilaudid and Zofran. He was worked up for his CP, with initial troponin indeterminate. Repeat troponin was lower than the first. Pt was feeling better, and I did feel he was stable for discharge home. Patient and spouse counseled in person regarding the patient's stable condition, test results, diagnosis and need for follow-up. Concerns were addressed. Old medical records reviewed. Disposition: Discharged. Condition: stable and improved. CLINICAL IMPRESSION Chest pain characterized as "tightness" .12 lead EKG performed. INSTRUCTIONS (Your labs look good. There is no sign of a heart attack today.). Warnings: Further evaluation is necessary. GENERAL WARNINGS: Return or contact your physician immediately if your condition worsens or changes unexpectedly, if not improving as expected, or if other problems arise. Your Current Medications: CONTINUE TAKING THE FOLLOWING MEDICATIONS: Allopurinol Oral : 40mg 2x a day. AmLODIPine Besylate Oral : pt unsure of dose. Aspirin Oral : Tablet 81 mg, daily. Atorvastatin Calcium Oral : daily, pt unsure of dose. Carvedilol Phosphate ER Oral : pt unsure of dose. Cyclobenzaprine HCl Oral. Gabapentin Oral : 300 mg daily. Ketorolac Tromethamine Oral. Lasix Oral : 40 mg daily. Latuda Oral : pt unsure of dose. Lisinopril Oral : 20 mg daily. MetFORMIN HCl Oral : 500 mg daily. Plavix Oral : 75 mg daily. Follow-up: Follow up with a police patrol officer. Call for the next available appointment. Reason for referral: Recheck after bypass 1 year ago and ER visit for chest pain. Understanding of the discharge instructions verbalized by patient and family. (Electronically signed by Lissette Horan MD 10/23/2016 16:00)
--- NOTE | 2016-10-19 21:26 | ED ORDER SUMMARY ---
..... Patient: ALEX ALTAMIRANO OrderSheet [facility] VisitID: [id number] [address] [place] [address] 56y, M Registration Date/Time: 10/19/2016 ORDER SHEET Weight: 135.3 kg (measured) Allergies: Latex GENERAL ORDERS: Director Metabolism (Continuous) (Chest Pain) (18:22 10/19/2016 Grey R.N. verbal order read back to Matilda KAYE) (18:23 Ernestoelli R.N.) Oxygen (2 L/min) (NC) (18:22 10/19/2016 Grey R.N. verbal order read back to Matilda KAYE) (18:23 Ernestoelli R.N.) Pulse oximeter (18:22 10/19/2016 Grey R.N. verbal order read back to Matilda KAYE) (18:23 omanelli R.N.) EKG - ER Stat (18:22 10/19/2016 Grey R.N. verbal order read back to Matilda KAYE) (18:33 Ernestoelli R.N.) Cardiac Panel Stat (18:24 10/19/2016 Grey R.N. verbal order read back to Matilda KAYE) (Ack 18:37 RKaruga) (19:35 omanelli R.N.) Troponin-I Urgent (20:29 10/19/2016 Matilda KAYE) (Ack 20:30 AMcQuoid ER Tech1) (21:05 ALawrence ER Tech1) MEDICATION ORDERS: Aspirin PO 325 mg (Do not crush or chew, NOW) (18:22 10/19/2016 Grey R.N. per protocol) (18:23 omanjasbir R.N.) IV FLUIDS: IV Saline Lock (18:22 10/19/2016 Grey R.N. verbal order read back to Matilda KAYE) (18:34 Grey R.N.) Dilaudid IV 1 mg (HIGH ALERT MEDICATION, NOW) (19:06 10/19/2016 Matilda KAYE) (19:30 Grey R.N.) Zofran IV 8 mg (NOW) (20:28 10/19/2016 Matilda KAYE) (Ack 21:06 AMcKenna) (21:15 [facility]) ORDER SHEET NOTES: [Electronically signed by Yajaira Holden (21:42 10/19/2016)] [Electronically signed by Lissette Horan MD (16:00 10/23/2016)] [Electronically locked/signed by Yajaira Holden (21:42 10/19/2016)]
--- NOTE | 2016-10-19 21:26 | ED CLINICAL REPORT ---
Clinical Report - Physicians/Mid Levels [facility] [address] [place] [address] 10/19/2016 18:08 Patient: ALEX ALTAMIRANO Time Seen: 18:12. Arrived- By private vehicle. Historian- patient. HISTORY OF PRESENT ILLNESS Chief Complaint: CHEST PAIN. This started about 1 1/2 hours ago and is still present but is improving. Onset during light activity. At its maximum, severity described as moderate. When seen in the E.D., severity described as moderate. Modifying factors- worsened by movement and deep breaths. Not relieved by anything. It is described as sharp and "pain" and it is described as located in the central chest area. No nausea, vomiting, difficulty breathing or diaphoresis. Similar symptoms previously: Many times. Recent medical care: Not recently seen/assessed. REVIEW OF SYSTEMS No fever, chills, cough, pedal edema or calf pain. No fainting episodes, headache, sore throat, blurred vision or abdominal pain. No black stools, difficulty with urination, skin rash, enlarged lymph nodes or joint pain. No bloody stools. All systems otherwise negative, except as recorded above. PAST HISTORY Problems: Morbid obesity. Diabetes Mellitus. Headache. Renal Insufficiency. Arthritis. Nerve, pinched. Bipolar Disorder. Sciatica. Insomnia. Substance Abuse. Depression. Costochondritis. Tension-Type Headache. Migraine Headache. Dental Abscess. Gastroenteritis. Hypercholesterolemia. Dental Pain. Hypertension. Manic bipolar I disorder. Additional Surgeries: Angioplasty of blood vessel. Back Surgery. Coronary Artery Bypass Graft. Medications: MetFORMIN HCl Oral 500 mg, daily. Allopurinol Oral 40mg , 2x a day. AmLODIPine Besylate Oral (pt unsure of dose ). Aspirin Oral (Tablet 81 mg), daily. Atorvastatin Calcium Oral, daily (pt unsure of dose ). Carvedilol Phosphate ER Oral (pt unsure of dose ). Cyclobenzaprine HCl Oral. Gabapentin Oral 300 mg, daily. Ketorolac Tromethamine Oral. Lasix Oral 40 mg, daily. Latuda Oral (pt unsure of dose ). Lisinopril Oral 20 mg, daily. Plavix Oral 75 mg, daily. Allergies: Latex. Definite Moderate(rash). SOCIAL HISTORY Smoker- current status unknown. History of drug use: marijuana. No alcohol use. ADDITIONAL NOTES The nursing notes have been reviewed. PHYSICAL EXAM Vital Signs: 10/19/2016 18:15 BP: 122/58. HR: 85. RR: 24. O2 saturation: 100%. Temp: 98.5 F. Pain level now: 5/10. Have been reviewed. Appearance: Alert. Oriented X3. No acute distress. Eyes: Pupils equal, round and reactive to light. Eyes normal inspection. ENT: Nose normal. Neck: Normal inspection. CVS: Normal heart rate and rhythm. Heart sounds normal. Pulses normal. Respiratory: No respiratory distress. Breath sounds normal. Chest nontender. Abdomen: Nontender. Severely obese. Back: Normal external inspection. Skin: Skin warm and dry. Normal skin color. No rash. Normal skin turgor. Extremities: Extremities exhibit normal ROM. No lower extremity edema. Neuro: Oriented X 3. No motor deficit. No sensory deficit. LABS, X-RAYS, AND EKG EKG: EKG time: (1831). No acute ischemia. Normal sinus rhythm. Rate: 84. Normal P waves. Normal LAKIA. Normal QRS complex. Normal axis. Normal QT and QTc. Non-specific ST segment / T wave abnormalities. Prior EKG unavailable. The study has been interpreted contemporaneously by me. The study has been independently viewed by me. The EKG appears to be a good tracing. I agree with and confirm the computer reading of the EKG. Rhythm Strip #1: Time: (1816). Rate= 89. Normal sinus rhythm. Regular rhythm. Narrow QRS complexes. No ectopy. Conduction normal. Normal ST segments and T waves. The study was interpreted by me. Laboratory Tests: CBC w Diff: (SHWETA: 10/19/2016 18:43) ( MsgRcvd 10/19/2016 18:54) Final results Test Result Flag Units (Reference) WHITE BLOOD COUNT 10.0 K/uL (4.5-11.5) RED BLOOD COUNT 3.97 L M/uL (4.50-5.90) HEMOGLOBIN 12.8 L gm/dL (13.5-17.5) HEMATOCRIT 37.3 L % (41.0-53.0) MEAN CELL VOLUME 94 fL (80-100) MEAN CORPUSCULAR HGB 32 pg (26-34) MEAN CORPUSCULAR HGB CONC 34 g/dL (31-37) RED CELL DISTRIBUTION WIDTH 14.6 % (11.6-14.8) PLATELET COUNT 210 K/uL (150-400) NEUTROPHIL % 67.5 % (50-75) LYMPH % 19.2 L % (25-40) MONO % 8.9 % (3-14) EOSINOPHIL % 3.9 % (0-4) BASOPHIL % 0.5 % (0-2) Troponin-I: (SHWETA: 10/19/2016 20:39) ( [facility] 21:22) Final results Test Result Flag Units (Reference) TROPONIN I 0.07 ng/mL (0.00-1.5) TROPONIN REFERENCE RANGE:<0.1 NEGATIVE0.1-1.5 INDETERMINANT>1.5 POSITIVE CHEM 13 PANEL: (SHWETA: 10/19/2016 18:43) ( [facility] 10/19/2016 19:30) Final results Test Result Flag Units (Reference) GLUCOSE 152 H mg/dL (70-110) BUN 55 H mg/dL (7-18) CREATININE 2.5 H mg/dL (0.6-1.3) Estimated GFR 28.54 mL/min Estimated GFR- 34.59 mL/min Note: Persistent reduction over 3 months in eGFR<60 mL/min/1.73 m2 defines CKD. Patients with eGFR values>=60 mL/min/1.73 m2 may also have CKD if evidence ofpersistent proteinuria. Additional information may be foundat www.kidney.org. SODIUM 140 mmol/L (136-145) POTASSIUM 4.4 mmol/L (3.5-5.1) CHLORIDE 105 mmol/L (98-107) CARBON DIOXIDE 25 mmol/L (21-32) CALCIUM 8.3 L mg/dL (8.5-10.1) TOTAL PROTEIN 7.0 g/dL (6.4-8.2) ALBUMIN 3.3 g/dL (3.3-5.0) BILIRUBIN, TOTAL 0.5 mg/dL (0.0-1.0) ALKALINE PHOSPHATASE 71 U/L (46-116) AST (SGOT) 33 U/L (15-37) ALT (SGPT) 39 U/L (12-78) MAGNESIUM 2.1 mg/dL (1.8-2.4) CPK 861 H U/L (24-260) CK-MB 20.1 H ng/mL (0.5-3.2) %CKMB 2.3 % (0.0-4.0) TROPONIN I 0.10 ng/mL (0.00-1.5) TROPONIN REFERENCE RANGE:<0.1 NEGATIVE0.1-1.5 INDETERMINANT>1.5 POSITIVE . Pulse Oximetry: 10/19/2016 18:15 O2 saturation: 100%. (FIO2 - room air). Interpretation: normal. PROGRESS AND PROCEDURES Course of Care: PT was given ASA, Dilaudid and Zofran. He was worked up for his CP, with initial troponin indeterminate. Repeat troponin was lower than the first. Pt was feeling better, and I did feel he was stable for discharge home. Patient and spouse counseled in person regarding the patient's stable condition, test results, diagnosis and need for follow-up. Concerns were addressed. Old medical records reviewed. Disposition: Discharged. Condition: stable and improved. CLINICAL IMPRESSION Chest pain characterized as "tightness" .12 lead EKG performed. INSTRUCTIONS (Your labs look good. There is no sign of a heart attack today.). Warnings: Further evaluation is necessary. GENERAL WARNINGS: Return or contact your physician immediately if your condition worsens or changes unexpectedly, if not improving as expected, or if other problems arise. Your Current Medications: CONTINUE TAKING THE FOLLOWING MEDICATIONS: Allopurinol Oral : 40mg 2x a day. AmLODIPine Besylate Oral : pt unsure of dose. Aspirin Oral : Tablet 81 mg, daily. Atorvastatin Calcium Oral : daily, pt unsure of dose. Carvedilol Phosphate ER Oral : pt unsure of dose. Cyclobenzaprine HCl Oral. Gabapentin Oral : 300 mg daily. Ketorolac Tromethamine Oral. Lasix Oral : 40 mg daily. Latuda Oral : pt unsure of dose. Lisinopril Oral : 20 mg daily. MetFORMIN HCl Oral : 500 mg daily. Plavix Oral : 75 mg daily. Follow-up: Follow up with a ice cream dispenser. Call for the next available appointment. Reason for referral: Recheck after bypass 1 year ago and ER visit for chest pain. Understanding of the discharge instructions verbalized by patient and family. (Electronically signed by Lissette Horan MD 10/23/2016 16:00)
--- NOTE | 2016-10-19 21:26 | ED NURSING NOTES ---
Clinical Report - Nurses [facility] [address] [place] [address] 10/19/2016 18:08 [id number] Triage time 18:15 Oct 19 2016. Acuity: LEVEL 3. Alert. JESSICA COMA SCORE: Jessica Coma Scale: 15- eyes open spontaneously (4); best verbal response- oriented x 4 (5); best motor response- obeys commands (6). --18:30 Dmitri Rosales R.N. 18:15 10/19/16. BP: 122/58. HR: 85 (regular and normal rate). RR: 24 (regular). O2 saturation: 100%. Temp: 98.5 F (oral). Pain level now: 5/10. --18:30 Dmitri Rosales R.N. Chief Complaint: CHEST PAIN and DISCOMFORT. --18:30 Dmitri Rosales R.N. Weight: 135.3 kg measured. Height/Length: 66 inches Per Patient. BMI: 48.2. --18:18 Dmitri Rosales R.N. Medications Allopurinol Oral 40mg , 2x a day. AmLODIPine Besylate Oral (pt unsure of dose ). Aspirin Oral (Tablet 81 mg), daily. Atorvastatin Calcium Oral, daily (pt unsure of dose ). Carvedilol Phosphate ER Oral (pt unsure of dose ). Cyclobenzaprine HCl Oral. Gabapentin Oral 300 mg, daily. Ketorolac Tromethamine Oral. Lasix Oral 40 mg, daily. Latuda Oral (pt unsure of dose ). Lisinopril Oral 20 mg, daily. Plavix Oral 75 mg, daily. --18:26 Dmitri Rosales R.N. MetFORMIN HCl Oral 500 mg, daily. --18:26 Dmitri Rosales R.N. Allergies Latex. Definite Moderate(rash) --18:26 Dmitri Rosales R.N. Medication/allergy information source: the patient. --18:30 Dmitri Rosales R.N. History Arrived by private vehicle. Historian: patient. Accompanied by spouse. Primary physician (Coco). ( Chest Pain Mid-sternal on either side of sternum. Pain started ~ 1 1/2 hours ago. His gave hime one NTG SL (pt states). PAST MEDICAL HX: Diabetes mellitus. Heart disease. Immunizations: up-to-date. SOCIAL HX: Light tobacco smoker (cigarette)- less than 1/2 a pack per day. History of drug use: marijuana. No alcohol use. No infectious disease exposure. ABUSE ASSESSMENT: No report of abuse. FALL RISK ASSESSMENT: Fall risk assessment completed. No fall risk identified. NUTRITIONAL RISK ASSESSMENT: The nutritional risk assessment revealed no deficiencies. FUNCTIONAL ASSESSMENT: Functional assessment: no impairments noted. LEARNING NEEDS ASSESSMENT: The learning needs assessment revealed no barriers. SKIN INTEGRITY ASSESSMENT: Skin integrity risk assessment completed. No skin integrity risk identified. --18:30 Dmitri Rosales R.N. PROBLEMS: Insomnia [Active]. Carotid Artery Disease [Active]. Congestive Heart Failure [Active]. --18:28 Dmitri Rosales R.N. Headache. Renal Insufficiency. Arthritis. Nerve, pinched. Bipolar Disorder. Upper Extremity Pain. Back Injury. Sciatica. Substance Abuse. Back Pain. Arthritis. UTI - Urinary Tract Infection. Depression. Nausea. Costochondritis. Tension-Type Headache. URI. Migraine Headache. Dental Abscess. Gastroenteritis. Hypercholesterolemia. Dental Pain. Hypertension. Manic bipolar I disorder. --18:28 Dmitri Rosales R.N. ADDITIONAL SURGERIES: Angioplasty of blood vessel. Back Surgery. Coronary Artery Bypass Graft. --18:29 Dmitri Rosales R.N. Interventions ID band on patient. To treatment room. --18:30 Dmitri Rosales R.N. PHYSICAL ASSESSMENT Ambulatory to room. GENERAL / NEURO / PSYCH: Alert. Oriented X 4. Appears in pain. HEENT: Mucous membranes are pink. RESPIRATORY: Respirations not labored. CVS: Normal sinus rhythm noted. GI / : Abdominal distention. Abdomen soft. ( Obese). EXTREMITIES: No lower extremity edema. SKIN: Skin is warm and dry. Normal skin turgor. --18:32 Dmitri Rosales R.N. NURSING PROGRESS NOTES 18:18 10/19/2016 Aspirin PO Tablets 325 mg given. Allergies verified and confirmed 5 rights. --18:23 Connie, Dmitri, R.N. Oxygen administered by nasal cannula at 2 liters. youth nutritional monitor, pulse oximeter and NIBP monitor placed on patient; hospital monitor- Lead II and V1. Patient gowned. Reassurance given to the patient. Patient identifiers checked. Call light placed in reach. Side rails up x 1. Bed placed in lowest position. Brakes of bed on. Patient ready for evaluation- chart flagged and ED physician notified. --18:33 Dmitri Rosales R.N. 18:19 10/19/2016 Site #1 started via IV in the left hand with an 20g angiocath, with aseptic technique and good blood return; one attempt. Blood drawn: rainbow set. Labeled in the presence of the patient and sent to the lab. Saline lock flushed with 10 mL saline (start by Tracey Le RN). --18:34 Dmitri Rosales R.N. EKG time: (18:32). EKG was performed by a camilo and shown to the ED physician. --18:45 Oanh Lopez 19:30 10/19/2016 Dilaudid (HYDROmorphone HCl PF) IVP 1 mg given. via site #1. Allergies verified, confirmed 5 rights and sedative warning given to the patient. IV patency established. IV site checked: no pain, redness, or swelling. IV flushed thoroughly pre- and post-medication administration. IVP given by RN. --19:30 Dmitri Rosales R.N. 19:00 10/19/16. BP: 109/78. HR: 83. RR: 18. O2 saturation: 100% on nasal cannula at 2 liters/minute. Pain level now: 3/10. --20:10 Dmitri Rosales R.N. 20:00 10/19/16. BP: 105/49. HR: 74. RR: 16. O2 saturation: 100% on nasal cannula at 2 liters/minute. Pain level now: 0/10. --20:16 Dmitri Rosales R.N. Telemetry strip posted to chart. --20:34 Irma, Destiney, ER Tech1 21:10 10/19/16. BP: 98/48. HR: 75. RR: 19. O2 saturation: 99% on nasal cannula at 3 liters/minute. Pain level now: 2/10. --21:11 Yajaira Holden 21:10 10/19/16. Care transferred and report received. --21:11 Yajaira Holden 21:15 10/19/2016 Zofran (Ondansetron HCl) IVP 8 mg given over 2 minute(s) via site #1. Allergies verified and confirmed 5 rights. IV patency established. IV site checked: no pain, redness, or swelling. IV flushed thoroughly pre- and post-medication administration. IVP given by RN. --21:15 Yajaira Holden 21:40 10/19/2016 Site #1 removed upon discharge. Catheter intact. Pressure dressing applied. --:40 Yajaira Holden :40 10/19/2016 IV Saline Lock Drip IV Discontinued: bag #1 infused. Total amount infused: 0 mL. --21:40 Yajaira Holden. DISPOSITION / DISCHARGE 21:39 10/19/16. Departure time: :Oct 19 2016. Condition at departure: improved. The goals identified in the patient's plan of care were met. No learning barriers present. Discharge instructions provided and reviewed with the patient and spouse. Reviewed warnings (Patient and family verbalized awareness of warning s/sx listed in dc paperwork.). Treatments reviewed. Reviewed referral to a plate stacker hand for followup. Patient and spouse verbalized understanding. Written instructions provided in Palauan. The patient was discharged by the physician. He was discharged home and accompanied by spouse. He left the Emergency Department ambulatory and via private vehicle. Spouse driving. FALL RISK ASSESSMENT: Fall risk assessment completed. No fall risk identified. --21:39 Yajaira Holden 21:38 10/19/16. BP: deferred. HR: deferred. RR: deferred. O2 saturation: deferred. Temp: deferred. Pain level now deferred. --:39 Yajaira Holden. Locked/Released at 10/19/2016 21:42 by Yajaira Holden,
--- NOTE | 2016-10-19 21:26 | ED NURSING NOTES ---
Clinical Report - Nurses [facility] [address] [place] [address] 10/19/2016 18:08 [id number] Triage time 18:15 Oct 19 2016. Acuity: LEVEL 3. Alert. JESSICA COMA SCORE: Jessica Coma Scale: 15- eyes open spontaneously (4); best verbal response- oriented x 4 (5); best motor response- obeys commands (6). --18:30 Dmitri Rosales R.N. 18:15 10/19/16. BP: 122/58. HR: 85 (regular and normal rate). RR: 24 (regular). O2 saturation: 100%. Temp: 98.5 F (oral). Pain level now: 5/10. --18:30 Dmitri Rosales R.N. Chief Complaint: CHEST PAIN and DISCOMFORT. --18:30 Dmitri Rosales R.N. Weight: 135.3 kg measured. Height/Length: 66 inches Per Patient. BMI: 48.2. --18:18 Dmitri Rosales R.N. Medications Allopurinol Oral 40mg , 2x a day. AmLODIPine Besylate Oral (pt unsure of dose ). Aspirin Oral (Tablet 81 mg), daily. Atorvastatin Calcium Oral, daily (pt unsure of dose ). Carvedilol Phosphate ER Oral (pt unsure of dose ). Cyclobenzaprine HCl Oral. Gabapentin Oral 300 mg, daily. Ketorolac Tromethamine Oral. Lasix Oral 40 mg, daily. Latuda Oral (pt unsure of dose ). Lisinopril Oral 20 mg, daily. Plavix Oral 75 mg, daily. --18:26 Dmitri Rosales R.N. MetFORMIN HCl Oral 500 mg, daily. --18:26 Dmitri Rosales R.N. Allergies Latex. Definite Moderate(rash) --18:26 Dmitri Rosales R.N. Medication/allergy information source: the patient. --18:30 Dmitri Rosales R.N. History Arrived by private vehicle. Historian: patient. Accompanied by spouse. Primary physician (Coco). ( Chest Pain Mid-sternal on either side of sternum. Pain started ~ 1 1/2 hours ago. His gave hime one NTG SL (pt states). PAST MEDICAL HX: Diabetes mellitus. Heart disease. Immunizations: up-to-date. SOCIAL HX: Light tobacco smoker (cigarette)- less than 1/2 a pack per day. History of drug use: marijuana. No alcohol use. No infectious disease exposure. ABUSE ASSESSMENT: No report of abuse. FALL RISK ASSESSMENT: Fall risk assessment completed. No fall risk identified. NUTRITIONAL RISK ASSESSMENT: The nutritional risk assessment revealed no deficiencies. FUNCTIONAL ASSESSMENT: Functional assessment: no impairments noted. LEARNING NEEDS ASSESSMENT: The learning needs assessment revealed no barriers. SKIN INTEGRITY ASSESSMENT: Skin integrity risk assessment completed. No skin integrity risk identified. --18:30 Dmitri Rosales R.N. PROBLEMS: Insomnia [Active]. Carotid Artery Disease [Active]. Congestive Heart Failure [Active]. --18:28 Dmitri Rosales R.N. Headache. Renal Insufficiency. Arthritis. Nerve, pinched. Bipolar Disorder. Upper Extremity Pain. Back Injury. Sciatica. Substance Abuse. Back Pain. Arthritis. UTI - Urinary Tract Infection. Depression. Nausea. Costochondritis. Tension-Type Headache. URI. Migraine Headache. Dental Abscess. Gastroenteritis. Hypercholesterolemia. Dental Pain. Hypertension. Manic bipolar I disorder. --18:28 Dmitri Rosales R.N. ADDITIONAL SURGERIES: Angioplasty of blood vessel. Back Surgery. Coronary Artery Bypass Graft. --18:29 Dmitri Rosales R.N. Interventions ID band on patient. To treatment room. --18:30 Dmitri Rosales R.N. PHYSICAL ASSESSMENT Ambulatory to room. GENERAL / NEURO / PSYCH: Alert. Oriented X 4. Appears in pain. HEENT: Mucous membranes are pink. RESPIRATORY: Respirations not labored. CVS: Normal sinus rhythm noted. GI / : Abdominal distention. Abdomen soft. ( Obese). EXTREMITIES: No lower extremity edema. SKIN: Skin is warm and dry. Normal skin turgor. --18:32 Dmitri Rosales R.N. NURSING PROGRESS NOTES 18:18 10/19/2016 Aspirin PO Tablets 325 mg given. Allergies verified and confirmed 5 rights. --18:23 Connie, Dmitri, R.N. Oxygen administered by nasal cannula at 2 liters. air sampling and monitoring, pulse oximeter and NIBP monitor placed on patient; patient monitor- Lead II and V1. Patient gowned. Reassurance given to the patient. Patient identifiers checked. Call light placed in reach. Side rails up x 1. Bed placed in lowest position. Brakes of bed on. Patient ready for evaluation- chart flagged and ED physician notified. --18:33 Dmitri Rosales R.N. 18:19 10/19/2016 Site #1 started via IV in the left hand with an 20g angiocath, with aseptic technique and good blood return; one attempt. Blood drawn: rainbow set. Labeled in the presence of the patient and sent to the lab. Saline lock flushed with 10 mL saline (start by Tracey Le RN). --18:34 Dmitri Rosales R.N. EKG time: (18:32). EKG was performed by a camilo and shown to the ED physician. --18:45 Oanh Lopez 19:30 10/19/2016 Dilaudid (HYDROmorphone HCl PF) IVP 1 mg given. via site #1. Allergies verified, confirmed 5 rights and sedative warning given to the patient. IV patency established. IV site checked: no pain, redness, or swelling. IV flushed thoroughly pre- and post-medication administration. IVP given by RN. --19:30 Dmitri Rosales R.N. 19:00 10/19/16. BP: 109/78. HR: 83. RR: 18. O2 saturation: 100% on nasal cannula at 2 liters/minute. Pain level now: 3/10. --20:10 Dmitri Rosales R.N. 20:00 10/19/16. BP: 105/49. HR: 74. RR: 16. O2 saturation: 100% on nasal cannula at 2 liters/minute. Pain level now: 0/10. --20:16 Dmitri Rosales R.N. Telemetry strip posted to chart. --20:34 Irma, Destiney, ER Tech1 21:10 10/19/16. BP: 98/48. HR: 75. RR: 19. O2 saturation: 99% on nasal cannula at 3 liters/minute. Pain level now: 2/10. --21:11 Yajaira Holden 21:10 10/19/16. Care transferred and report received. --21:11 Yajaira Holden 21:15 10/19/2016 Zofran (Ondansetron HCl) IVP 8 mg given over 2 minute(s) via site #1. Allergies verified and confirmed 5 rights. IV patency established. IV site checked: no pain, redness, or swelling. IV flushed thoroughly pre- and post-medication administration. IVP given by RN. --21:15 Yajaira Holden 21:40 10/19/2016 Site #1 removed upon discharge. Catheter intact. Pressure dressing applied. --:40 Yajaira Holden :40 10/19/2016 IV Saline Lock Drip IV Discontinued: bag #1 infused. Total amount infused: 0 mL. --21:40 Yajaira Holden. DISPOSITION / DISCHARGE 21:39 10/19/16. Departure time: :Oct 19 2016. Condition at departure: improved. The goals identified in the patient's plan of care were met. No learning barriers present. Discharge instructions provided and reviewed with the patient and spouse. Reviewed warnings (Patient and family verbalized awareness of warning s/sx listed in dc paperwork.). Treatments reviewed. Reviewed referral to a quality control checker for followup. Patient and spouse verbalized understanding. Written instructions provided in Omani. The patient was discharged by the physician. He was discharged home and accompanied by spouse. He left the Emergency Department ambulatory and via private vehicle. Spouse driving. FALL RISK ASSESSMENT: Fall risk assessment completed. No fall risk identified. --21:39 Yajaira Holden 21:38 10/19/16. BP: deferred. HR: deferred. RR: deferred. O2 saturation: deferred. Temp: deferred. Pain level now deferred. --:39 Yajaira Holden. Locked/Released at 10/19/2016 21:42 by Yajaira Holden,
--- NOTE | 2016-10-19 21:26 | ED ORDER SUMMARY ---
..... Patient: ALEX ALTAMIRANO OrderSheet [facility] VisitID: [id number] [address] [place] [address] 56y, M Registration Date/Time: 10/19/2016 ORDER SHEET Weight: 135.3 kg (measured) Allergies: Latex GENERAL ORDERS: Jewel Stringer (Continuous) (Chest Pain) (18:22 10/19/2016 Grey R.N. verbal order read back to Matilda KAYE) (18:23 Ernestoelli R.N.) Oxygen (2 L/min) (NC) (18:22 10/19/2016 Grey R.N. verbal order read back to Matilda KAYE) (18:23 Ernestoelli R.N.) Pulse oximeter (18:22 10/19/2016 Grey R.N. verbal order read back to Matilda KAYE) (18:23 omanelli R.N.) EKG - ER Stat (18:22 10/19/2016 Grey R.N. verbal order read back to Matilda KAYE) (18:33 Ernestoelli R.N.) Cardiac Panel Stat (18:24 10/19/2016 Grey R.N. verbal order read back to Mtailda KAYE) (Ack 18:37 RKaruga) (19:35 omanelli R.N.) Troponin-I Urgent (20:29 10/19/2016 Matilda KAYE) (Ack 20:30 AMcQuoid ER Tech1) (21:05 ALawrence ER Tech1) MEDICATION ORDERS: Aspirin PO 325 mg (Do not crush or chew, NOW) (18:22 10/19/2016 Grey R.N. per protocol) (18:23 omanjasbir R.N.) IV FLUIDS: IV Saline Lock (18:22 10/19/2016 Grey R.N. verbal order read back to Matilda KAYE) (18:34 Grey R.N.) Dilaudid IV 1 mg (HIGH ALERT MEDICATION, NOW) (19:06 10/19/2016 Matilda KAYE) (19:30 Grey R.N.) Zofran IV 8 mg (NOW) (20:28 10/19/2016 Matilda KAYE) (Ack 21:06 AMcKenna) (21:15 [facility]) ORDER SHEET NOTES: [Electronically signed by Yajaira Holden (21:42 10/19/2016)] [Electronically signed by Lissette Horan MD (16:00 10/23/2016)] [Electronically locked/signed by Yajaira Holden (21:42 10/19/2016)]
--- NOTE | 2016-10-23 16:00 | ED DISCHARGE INSTRUCTIONS ---
Patient: ALEX ALTAMIRANO General Instructions [facility] VisitID: [id number] [place] [address] 56y, M Registration Date/Time: 10/19/2016 Chest pain characterized as "tightness" .12 lead EKG performed. INSTRUCTIONS (Your labs look good. There is no sign of a heart attack today.). Warnings: Further evaluation is necessary. GENERAL WARNINGS: Return or contact your physician immediately if your condition worsens or changes unexpectedly, if not improving as expected, or if other problems arise. Your Current Medications: CONTINUE TAKING THE FOLLOWING MEDICATIONS: Allopurinol Oral : 40mg 2x a day. AmLODIPine Besylate Oral : pt unsure of dose. Aspirin Oral : Tablet 81 mg, daily. Atorvastatin Calcium Oral : daily, pt unsure of dose. Carvedilol Phosphate ER Oral : pt unsure of dose. Cyclobenzaprine HCl Oral. Gabapentin Oral : 300 mg daily. Ketorolac Tromethamine Oral. Lasix Oral : 40 mg daily. Latuda Oral : pt unsure of dose. Lisinopril Oral : 20 mg daily. MetFORMIN HCl Oral : 500 mg daily. Plavix Oral : 75 mg daily. Follow-up: Follow up with a chemical plant worker. Call for the next available appointment. Reason for referral: Recheck after bypass 1 year ago and ER visit for chest pain. Understanding of the discharge instructions verbalized by patient and family. ADDITIONAL INFORMATION Chest Pain, Uncertain Cause Chest pain can happen for a number of reasons. Sometimes the cause can not be determined. If yourcondition does not seem serious, and your pain does not appear to be coming from your heart, your doctor may recommend watching it closely. Sometimes the signs of a serious problem take more time to appear. Therefore, watch for the warning signs listed below. Home care After your visit, follow these recommendations: Rest today and avoid strenuous activity. Take any prescribed medicine as directed. Follow-up care Follow up with your doctor or this facility as instructed or if you do not start to feel better within 24 hours. Call 911 Get immediate medical attention if any of the following occur: A change in the type of pain: if it feels different, becomes more severe, lasts longer, or begins to spread into your shoulder, arm, neck, jaw or back Shortness of breath or increased pain with breathing Weakness, dizziness, or fainting Rapid heart beat Get prompt medical attention Call your doctor right away if any of the following occur: Cough with dark colored sputum (phlegm) or blood Fever of 100.4F(38C) or higher, or as directed by your health care provider Swelling, pain or redness in one leg You have been given the following additional information: Chest Pain, Uncertain Cause (Electronically signed by Lissette Horan MD 10/23/2016 16:00)
--- NOTE | 2016-10-23 16:00 | ED DISCHARGE INSTRUCTIONS ---
Patient: ALEX ALTAMIRANO General Instructions [facility] VisitID: [id number] [place] [address] 56y, M Registration Date/Time: 10/19/2016 Chest pain characterized as "tightness" .12 lead EKG performed. INSTRUCTIONS (Your labs look good. There is no sign of a heart attack today.). Warnings: Further evaluation is necessary. GENERAL WARNINGS: Return or contact your physician immediately if your condition worsens or changes unexpectedly, if not improving as expected, or if other problems arise. Your Current Medications: CONTINUE TAKING THE FOLLOWING MEDICATIONS: Allopurinol Oral : 40mg 2x a day. AmLODIPine Besylate Oral : pt unsure of dose. Aspirin Oral : Tablet 81 mg, daily. Atorvastatin Calcium Oral : daily, pt unsure of dose. Carvedilol Phosphate ER Oral : pt unsure of dose. Cyclobenzaprine HCl Oral. Gabapentin Oral : 300 mg daily. Ketorolac Tromethamine Oral. Lasix Oral : 40 mg daily. Latuda Oral : pt unsure of dose. Lisinopril Oral : 20 mg daily. MetFORMIN HCl Oral : 500 mg daily. Plavix Oral : 75 mg daily. Follow-up: Follow up with a golf course equipment operator. Call for the next available appointment. Reason for referral: Recheck after bypass 1 year ago and ER visit for chest pain. Understanding of the discharge instructions verbalized by patient and family. ADDITIONAL INFORMATION Chest Pain, Uncertain Cause Chest pain can happen for a number of reasons. Sometimes the cause can not be determined. If yourcondition does not seem serious, and your pain does not appear to be coming from your heart, your doctor may recommend watching it closely. Sometimes the signs of a serious problem take more time to appear. Therefore, watch for the warning signs listed below. Home care After your visit, follow these recommendations: Rest today and avoid strenuous activity. Take any prescribed medicine as directed. Follow-up care Follow up with your doctor or this facility as instructed or if you do not start to feel better within 24 hours. Call 911 Get immediate medical attention if any of the following occur: A change in the type of pain: if it feels different, becomes more severe, lasts longer, or begins to spread into your shoulder, arm, neck, jaw or back Shortness of breath or increased pain with breathing Weakness, dizziness, or fainting Rapid heart beat Get prompt medical attention Call your doctor right away if any of the following occur: Cough with dark colored sputum (phlegm) or blood Fever of 100.4F(38C) or higher, or as directed by your health care provider Swelling, pain or redness in one leg You have been given the following additional information: Chest Pain, Uncertain Cause (Electronically signed by Lissette Horan MD 10/23/2016 16:00)
--- NOTE | 2016-10-23 16:00 | ED MAR SUMMARY ---
..... Medication Administration Record [facility] [address] [place] [address] Patient: ALEX ALTAMIRANO Visit ID: [id number] 56y, M Weight: 135.3 kg Height/Length: 66 in BMI: 48.2 ALLERGIES: Latex Given 18:18 10/19/2016 Dmitri Rosales RShaneN. Medication Administered: ASPIRIN [PO], Dose: 325 mg Tablets PO. Medication Ordered: Aspirin PO 325 mg (Do not crush or chew, NOW). Given 19:30 10/19/2016 Dmitri Rosales RShaneN. Medication Administered: DILAUDID [IVP] (HYDROMORPHONE HCL PF), Dose: 1 mg IVP, Site: #1 left hand. Medication Ordered: Dilaudid IV 1 mg (HIGH ALERT MEDICATION, NOW). Given 21:15 10/19/2016 Yajaira Holden, Medication Administered: ZOFRAN [IVP] (ONDANSETRON HCL), Dose: 8 mg IVP over 2 minute(s), Site: #1 left hand. Medication Ordered: Zofran IV 8 mg (NOW).
--- NOTE | 2016-10-23 16:00 | ED MED RECONCILIATION SUMMARY ---
Patient: ALEX ALTAMIRANO Medication Reconciliation Report [facility] VisitID: [id number] [address] [place] [address] 56y, M Registration Date/Time: 10/19/2016 Weight: 135.3 kg Height/Length: 66 in. BMI: 48.2 ALLERGIES: Latex The patient's Home Medications are listed below: CONTINUE TAKING THE FOLLOWING MEDICATIONS: Allopurinol Oral 40mg , 2x a day AmLODIPine Besylate Oral, pt unsure of dose Aspirin Oral (81 mg), daily Atorvastatin Calcium Oral, daily, pt unsure of dose Carvedilol Phosphate ER Oral, pt unsure of dose Cyclobenzaprine HCl Oral Gabapentin Oral 300 mg, daily Ketorolac Tromethamine Oral Lasix Oral 40 mg, daily Latuda Oral, pt unsure of dose Lisinopril Oral 20 mg, daily MetFORMIN HCl Oral 500 mg, daily Plavix Oral 75 mg, daily The source(s) of the original Home Medication information: patient The following Medications were given to the patient in the Emergency Department: Aspirin [PO] PO 325 mg, administered: 10/19/2016 6:18:00 PM Dilaudid [IVP] IVP 1 mg, administered: 10/19/2016 7:30:00 PM Zofran [IVP] IVP 8 mg, administered: 10/19/2016 9:15:00 PM The following Medications were prescribed to the patient: None.
--- NOTE | 2016-10-23 16:00 | ED MED RECONCILIATION SUMMARY ---
Patient: ALEX ALTAMIRANO Medication Reconciliation Report [facility] VisitID: [id number] [address] [place] [address] 56y, M Registration Date/Time: 10/19/2016 Weight: 135.3 kg Height/Length: 66 in. BMI: 48.2 ALLERGIES: Latex The patient's Home Medications are listed below: CONTINUE TAKING THE FOLLOWING MEDICATIONS: Allopurinol Oral 40mg , 2x a day AmLODIPine Besylate Oral, pt unsure of dose Aspirin Oral (81 mg), daily Atorvastatin Calcium Oral, daily, pt unsure of dose Carvedilol Phosphate ER Oral, pt unsure of dose Cyclobenzaprine HCl Oral Gabapentin Oral 300 mg, daily Ketorolac Tromethamine Oral Lasix Oral 40 mg, daily Latuda Oral, pt unsure of dose Lisinopril Oral 20 mg, daily MetFORMIN HCl Oral 500 mg, daily Plavix Oral 75 mg, daily The source(s) of the original Home Medication information: patient The following Medications were given to the patient in the Emergency Department: Aspirin [PO] PO 325 mg, administered: 10/19/2016 6:18:00 PM Dilaudid [IVP] IVP 1 mg, administered: 10/19/2016 7:30:00 PM Zofran [IVP] IVP 8 mg, administered: 10/19/2016 9:15:00 PM The following Medications were prescribed to the patient: None.
--- NOTE | 2016-10-23 16:00 | ED MAR SUMMARY ---
..... Medication Administration Record [facility] [address] [place] [address] Patient: ALEX ALTAMIRANO Visit ID: [id number] 56y, M Weight: 135.3 kg Height/Length: 66 in BMI: 48.2 ALLERGIES: Latex Given 18:18 10/19/2016 Dmitri Rosales RShaneN. Medication Administered: ASPIRIN [PO], Dose: 325 mg Tablets PO. Medication Ordered: Aspirin PO 325 mg (Do not crush or chew, NOW). Given 19:30 10/19/2016 Dmitri Rosales RShaneN. Medication Administered: DILAUDID [IVP] (HYDROMORPHONE HCL PF), Dose: 1 mg IVP, Site: #1 left hand. Medication Ordered: Dilaudid IV 1 mg (HIGH ALERT MEDICATION, NOW). Given 21:15 10/19/2016 Yajaira Holden, Medication Administered: ZOFRAN [IVP] (ONDANSETRON HCL), Dose: 8 mg IVP over 2 minute(s), Site: #1 left hand. Medication Ordered: Zofran IV 8 mg (NOW).
== END 2016-10-19 21:40 | disposition home or self-care (01) ==
LOC: ED SRH 18:07
DX: R07.89 Other chest pain (principal); I10 Essential (primary) hypertension; E11.9 Type 2 diabetes mellitus without complications; Z79.84 Long term (current) use of oral hypoglycemic drugs; Z79.82 Long term (current) use of aspirin; Z91.040 Latex allergy status; Z95.1 Presence of aortocoronary bypass graft; Z79.899 Other long term (current) drug therapy
CPT/HCPCS: 90074; 90100; 90616; 90617; 92610; 92720; 95059

== ENCOUNTER 2016-11-08 01:11 | Emergency (ER) | payer OTHER ==
--- NOTE | 2016-11-08 03:45 | ED CLINICAL REPORT ---
Clinical Report - Physicians/Mid Levels [facility] [address] [place] [address] 11/08/2016 1:11 Patient: ALEX ALTAMIRANO Time Seen: 03:12. Arrived- By private vehicle. Historian- patient. HISTORY OF PRESENT ILLNESS Chief Complaint: LOWER EXTREMITY PAIN. Severity is described as being severe. It has become recently worse. The quality is noted to be aching, "pain" and similar to prior episodes. This started yesterday and is still present. Symptoms located in the area of the right ankle. The patient has had swelling. He has had mild difficulty walking. Patient denies an injury. Similar symptoms previously: Many times. Evaluation/treatment: medication prescribed. Diagnosis: gout. REVIEW OF SYSTEMS No chills, fever, sweats, calf pain or chest pain. No cough, difficulty breathing, pedal edema, palpitations or abdominal pain. No constipation, diarrhea, nausea, vomiting or urinary problems. All systems otherwise negative, except as recorded above. SOCIAL HISTORY Current every day heavy tobacco smoker (cigarette)- less than 1 pack per day. Occasional alcohol use. History of drug use: marijuana. FAMILY HISTORY Denies family medical history. ADDITIONAL NOTES The nursing notes have been reviewed. PHYSICAL EXAM Vital Signs: 11/08/2016 02:47 BP: 120/65. HR: 56. RR: 24. O2 saturation: 96%. Temp: 97.4 F. Pain level now: 10/10. Have been reviewed. Appearance: Alert. Eyes: Pupils equal, round and reactive to light. ENT: Pharynx normal. Neck: Neck supple. CVS: Normal heart rate and rhythm. Heart sounds normal. Respiratory: No respiratory distress. Breath sounds normal. Abdomen: Soft and nontender. No organomegaly. Back: Normal inspection. Skin: Skin warm and dry. Normal skin color. Normal skin turgor. Extremities: Right ankle: mild tenderness. Neurovascular intact distally. No joint effusion. No erythema or ecchymosis. No limitation in ROM. Neuro: No motor deficit. No sensory deficit. PROGRESS AND PROCEDURES Course of Care: The patient reports that he has been on Plavix "for years." This was started after he had a coronary artery bypass graft. He says that he has tolerated Toradol along with the Plavix while in the past and he would like a prescription for this. He acknowledges the risk of increased bleeding and says he will seek immediate medical attention if this were to develop. Patient/family counseled. Old medical records reviewed. Disposition: Discharged. Condition: stable. CLINICAL IMPRESSION Chronic gout involving the right ankle. INSTRUCTIONS Apply ice for 20 minutes four times a day until better. Don't apply ice directly to skin and don't use while asleep. You may walk and bear weight as tolerated. (talk with your doctor about continuing the prednisone that U initiated today per his prior prescription.). Warnings: Further evaluation is necessary. GENERAL WARNINGS: Return or contact your physician immediately if your condition worsens or changes unexpectedly, if not improving as expected, or if other problems arise. Your Current Medications: CONTINUE TAKING THE FOLLOWING MEDICATIONS: Allopurinol Oral : 40mg 2x a day. AmLODIPine Besylate Oral : pt unsure of dose. Aspirin Oral : Tablet 81 mg, daily. Atorvastatin Calcium Oral : daily, pt unsure of dose. Carvedilol Phosphate ER Oral : pt unsure of dose. Cyclobenzaprine HCl Oral. Gabapentin Oral : 300 mg daily. Prescription Medications: Toradol 10 mg tablets: Take 1 tablet orally every 6 hours as needed. Dispense fifteen (15). No refills. Substitution is permissible. Follow-up: Follow up with your doctor tomorrow. Call for an appointment. Understanding of the discharge instructions verbalized by patient. (Electronically signed by Dino Ham MD 11/09/2016 1:05)
--- NOTE | 2016-11-08 03:45 | ED NURSING NOTES ---
Clinical Report - Nurses [facility] [address] [place] [address] 11/08/2016 1:11 Patient: ALEX ALTAMIRANO TRIAGE Triage time 02:48. Acuity: LEVEL 4. Chief Complaint: (right ankle "gout flare up"). Alert. JESSICA COMA SCORE: Jessica Coma Scale: 15- eyes open spontaneously (4); best verbal response- oriented x 4 (5); best motor response- obeys commands (6). --02:54 Ricardo Hernandez R.N. 02:47 11/08/16. BP: 120/65. HR: 56. RR: 24. O2 saturation: 96% on room air. Temp: 97.4 F (oral). Pain level now: 05/29. --02:54 Ricardo Hernandez R.N. Weight: 135.6 kg stated. Height/Length: 66 inches. BMI: 48.3. --02:48 Ricardo Hernandez R.N. Medications Allopurinol Oral 40mg , 2x a day. --02:49 Ricardo Hernandez R.N. AmLODIPine Besylate Oral (pt unsure of dose ). Aspirin Oral (Tablet 81 mg), daily. Atorvastatin Calcium Oral, daily (pt unsure of dose ). Carvedilol Phosphate ER Oral (pt unsure of dose ). Cyclobenzaprine HCl Oral. Gabapentin Oral 300 mg, daily. Ketorolac Tromethamine Oral. Lasix Oral 40 mg, daily. Latuda Oral (pt unsure of dose ). Lisinopril Oral 20 mg, daily. MetFORMIN HCl Oral 500 mg, daily. Plavix Oral 75 mg, daily. --02:49 Ricardo Hernandez R.N. Allergies Latex. Definite Moderate(rash) --02:49 Ricardo Hernandez R.N. History Arrived by private vehicle. Historian: patient. Accompanied by family and spouse. Onset. (2 days ago). No fever, weakness, cough, difficulty breathing or skin rash. Denies muscle aches. 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 SOCIAL HX: Heavy tobacco smoker- less than 1 pack per day. Occasional alcohol use. History of occasional drug use: marijuana. NUTRITIONAL RISK ASSESSMENT: The nutritional risk assessment revealed no deficiencies. LEARNING NEEDS ASSESSMENT: The learning needs assessment revealed no barriers. FALL RISK ASSESSMENT: Fall risk assessment completed. Risk factors identified include severe pain. FUNCTIONAL ASSESSMENT: Functional assessment performed: requires assistance with the activities of daily living. SKIN INTEGRITY ASSESSMENT: Skin integrity risk assessment completed. No skin integrity risk identified. --02:54 Ricardo Hernandez R.N. PROBLEMS: Insomnia [Active]. Carotid Artery Disease [Active]. Congestive Heart Failure [Active]. --02:50 Ricardo Hernandez R.N. Morbid obesity. Chest Pain. Diabetes Mellitus. Headache. Renal Insufficiency. Arthritis. Nerve, pinched. Bipolar Disorder. Upper Extremity Pain. Back Injury. Sciatica. Heart Disease. Insomnia. Substance Abuse. Back Pain. UTI - Urinary Tract Infection. Depression. Nausea. Costochondritis. Tension-Type Headache. URI. Migraine Headache. Dental Abscess. Gastroenteritis. Hypercholesterolemia. Dental Pain. Hypertension. Manic bipolar I disorder. --02:50 Ricardo Hernandez R.N. ADDITIONAL SURGERIES: Angioplasty of blood vessel. Back Surgery. Coronary Artery Bypass Graft. --02:50 Ricardo Hernandez R.N. Interventions ID band on patient. To treatment room. --02:54 Ricardo Hernandez R.N. NURSING PROGRESS NOTES Head of bed elevated. Reassurance given. Two patient identifiers checked. Call light placed in reach. Side rails up x 1. Bed placed in lowest position. Brakes of bed on. Patient ready for evaluation- chart flagged. Patient waiting for evaluation. --02:54 Ricardo Hernandez R.N. DISPOSITION / DISCHARGE Departure time: 352. Condition at departure: stable. No learning barriers present. Discharge instructions provided and reviewed with the patient. Reviewed warnings. Reviewed medication(s) side effects, precautions, dosing and course information. Prescription(s) given to the patient. Treatments reviewed. Reviewed referrals for followup. Patient verbalized understanding. Written instructions provided in [place]. The patient was discharged home and accompanied by family. He left the Emergency Department in a wheelchair and via private vehicle. Family member driving. ( pt states that a family member is driving him home. Patient in waiting area awaiting his ride.). --03:58 Ricardo Hernandez R.N. 03:50 11/08/16. RR: 22. Additional comments: NO change in pain since last assessment. --03:58 Ricardo Hernandez R.N. Locked/Released at 11/08/2016 3:58 by Ricardo Hernandez R.N.
--- NOTE | 2016-11-08 03:45 | ED NURSING NOTES ---
Clinical Report - Nurses [facility] [address] [place] [address] 11/08/2016 1:11 Patient: ALEX ALTAMIRANO TRIAGE Triage time 02:48. Acuity: LEVEL 4. Chief Complaint: (right ankle "gout flare up"). Alert. JESSICA COMA SCORE: Jessica Coma Scale: 15- eyes open spontaneously (4); best verbal response- oriented x 4 (5); best motor response- obeys commands (6). --02:54 Ricardo Hernandez R.N. 02:47 11/08/16. BP: 120/65. HR: 56. RR: 24. O2 saturation: 96% on room air. Temp: 97.4 F (oral). Pain level now: 05/29. --02:54 Ricardo Hernandez R.N. Weight: 135.6 kg stated. Height/Length: 66 inches. BMI: 48.3. --02:48 Ricardo Hernandez R.N. Medications Allopurinol Oral 40mg , 2x a day. --02:49 Ricardo Hernandez R.N. AmLODIPine Besylate Oral (pt unsure of dose ). Aspirin Oral (Tablet 81 mg), daily. Atorvastatin Calcium Oral, daily (pt unsure of dose ). Carvedilol Phosphate ER Oral (pt unsure of dose ). Cyclobenzaprine HCl Oral. Gabapentin Oral 300 mg, daily. Ketorolac Tromethamine Oral. Lasix Oral 40 mg, daily. Latuda Oral (pt unsure of dose ). Lisinopril Oral 20 mg, daily. MetFORMIN HCl Oral 500 mg, daily. Plavix Oral 75 mg, daily. --02:49 Ricardo Hernandez R.N. Allergies Latex. Definite Moderate(rash) --02:49 Ricardo Hernandez R.N. History Arrived by private vehicle. Historian: patient. Accompanied by family and spouse. Onset. (2 days ago). No fever, weakness, cough, difficulty breathing or skin rash. Denies muscle aches. 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 SOCIAL HX: Heavy tobacco smoker- less than 1 pack per day. Occasional alcohol use. History of occasional drug use: marijuana. NUTRITIONAL RISK ASSESSMENT: The nutritional risk assessment revealed no deficiencies. LEARNING NEEDS ASSESSMENT: The learning needs assessment revealed no barriers. FALL RISK ASSESSMENT: Fall risk assessment completed. Risk factors identified include severe pain. FUNCTIONAL ASSESSMENT: Functional assessment performed: requires assistance with the activities of daily living. SKIN INTEGRITY ASSESSMENT: Skin integrity risk assessment completed. No skin integrity risk identified. --02:54 Ricardo Hernandez R.N. PROBLEMS: Insomnia [Active]. Carotid Artery Disease [Active]. Congestive Heart Failure [Active]. --02:50 Ricardo Hernandez R.N. Morbid obesity. Chest Pain. Diabetes Mellitus. Headache. Renal Insufficiency. Arthritis. Nerve, pinched. Bipolar Disorder. Upper Extremity Pain. Back Injury. Sciatica. Heart Disease. Insomnia. Substance Abuse. Back Pain. UTI - Urinary Tract Infection. Depression. Nausea. Costochondritis. Tension-Type Headache. URI. Migraine Headache. Dental Abscess. Gastroenteritis. Hypercholesterolemia. Dental Pain. Hypertension. Manic bipolar I disorder. --02:50 Ricardo Hernandez R.N. ADDITIONAL SURGERIES: Angioplasty of blood vessel. Back Surgery. Coronary Artery Bypass Graft. --02:50 Ricardo Hernandez R.N. Interventions ID band on patient. To treatment room. --02:54 Ricardo Hernandez R.N. NURSING PROGRESS NOTES Head of bed elevated. Reassurance given. Two patient identifiers checked. Call light placed in reach. Side rails up x 1. Bed placed in lowest position. Brakes of bed on. Patient ready for evaluation- chart flagged. Patient waiting for evaluation. --02:54 Ricardo Hernandez R.N. DISPOSITION / DISCHARGE Departure time: 352. Condition at departure: stable. No learning barriers present. Discharge instructions provided and reviewed with the patient. Reviewed warnings. Reviewed medication(s) side effects, precautions, dosing and course information. Prescription(s) given to the patient. Treatments reviewed. Reviewed referrals for followup. Patient verbalized understanding. Written instructions provided in Cuban. The patient was discharged home and accompanied by family. He left the Emergency Department in a wheelchair and via private vehicle. Family member driving. ( pt states that a family member is driving him home. Patient in waiting area awaiting his ride.). --03:58 Ricardo Hernandez R.N. 03:50 11/08/16. RR: 22. Additional comments: NO change in pain since last assessment. --03:58 Ricardo Hernandez R.N. Locked/Released at 11/08/2016 3:58 by Ricardo Hernandez R.N.
--- NOTE | 2016-11-09 01:05 | ED DISCHARGE INSTRUCTIONS ---
Patient: ALEX ALTAMIRANO General Instructions [facility] VisitID: [id number] [place] [address] 56y, M Registration Date/Time: 11/08/2016 Chronic gout involving the right ankle. INSTRUCTIONS Apply ice for 20 minutes four times a day until better. Don't apply ice directly to skin and don't use while asleep. You may walk and bear weight as tolerated. (talk with your doctor about continuing the prednisone that U initiated today per his prior prescription.). Warnings: Further evaluation is necessary. GENERAL WARNINGS: Return or contact your physician immediately if your condition worsens or changes unexpectedly, if not improving as expected, or if other problems arise. Your Current Medications: CONTINUE TAKING THE FOLLOWING MEDICATIONS: Allopurinol Oral : 40mg 2x a day. AmLODIPine Besylate Oral : pt unsure of dose. Aspirin Oral : Tablet 81 mg, daily. Atorvastatin Calcium Oral : daily, pt unsure of dose. Carvedilol Phosphate ER Oral : pt unsure of dose. Cyclobenzaprine HCl Oral. Gabapentin Oral : 300 mg daily. Prescription Medications: Toradol 10 mg tablets: Take 1 tablet orally every 6 hours as needed. Dispense fifteen (15). No refills. Substitution is permissible. Follow-up: Follow up with your doctor tomorrow. Call for an appointment. Understanding of the discharge instructions verbalized by patient. ADDITIONAL INFORMATION Gout Gout or "gouty arthritis" is an inflammation of a joint due to a build-up of gout crystals in the joint fluid. This occurs when there is an excess uric acid (a normal waste product) in the body. Uric acid builds up in the body when the kidneys are unable to filter enough of it from the blood. This may occur with aging or kidney disease. Gout occurs more often in persons with obesity, diabetes, hypertension, high fats in the blood. It may be present in other family members. Alcohol and certain foods (such as shellfish and alcohol) may increase uric acid levels in the blood and cause a gout attack. Gout causes a hot, red, swollen and painful joint. If you have had one episode of gout, you are likely to have another. An acute attack of gout can be treated with anti-inflammatory and other medicine. If these attacks become frequent it may be necessary to take a daily medicine to help the kidney remove uric acid from the body. Home Care: Apply an ice pack (ice cubes in a plastic bag, wrapped in a towel) over the injured area for 20 minutes every 1-2 hours the first day for pain relief. Continue this 3-4 times a day until the pain and swelling goes away. Avoid alcohol and foods listed below (see Prevention) during a gout attack. Drink extra fluid to help flush the uric acid through your kidneys. Rest painful joints. If gout affects the joints of your foot or leg, you may want to use crutches for the first few days to keep from bearing weight on the foot or leg. Take anti-inflammatory medicine as directed. You may be prescribed Indocin (indomethacin), or [id number] drugs such as ibuprofen (Motrin, Advil) or naproxen (Naprosyn or Aleve). Tylenol will not be as effective since it is not an anti-inflammatory drug. If narcotic pain medicines have been prescribed, they should be used in addition to the anti-inflammatory drugs and only for severe pain. Avoid aspirin since this may slow down the flushing of the uric acid through your kidneys. Preventing Future Attacks: Minimize or avoid alcohol use. Excess alcohol intake can cause a gout attack. Foods high in purine form uric acid in the body and increase your risk for a gout attack. Therefore, avoid the following foods: certain seafoods (anchovies, sardines, shrimp, scallops, tracy, mackerel); wild game, meat extracts and meat gravies; organ foods (kidney, liver, calf brain, sweetbreads). Avoid drinks with fructose (a type of sugar). Limit the following foods to one serving a day: red meat and pork, fish, poultry, dried beans and peas, asparagus, mushrooms, cauliflower and spinach. If you are overweight, this is a risk factor and you should talk to your doctor about a weight reduction plan. However, avoid fasting or extreme low calorie diets (less than 900 jean/day) which will increase uric acid levels in the body. If you are diabetic or have high blood pressure, work with your doctor to achieve control of these conditions. Avoid injury to the involved joint since this can lead to a gout attack. Colchicine can be effective in stopping a gout attack. If you were given a prescription of this medicine for future use, begin it at the first sign of an attack. Colchicine may cause nausea, vomiting, diarrhea and other side effects. Follow Up with your doctor as advised or if you are not improving after three days of treatment. Get Prompt Medical Attention if any of the following occur: Fever over 100.4F (38.0C) with worsening joint pain Increasing redness around the joint Pain developing in another joint Repeated vomiting, abdominal pain, or blood in the vomit or stool (black or red color) Ketorolac Tromethamine Oral tablet What is this medicine? KETOROLAC (elder toe ROLE ak) is a non-steroidal anti-inflammatory drug (NSAID). It is used for a short while to treat moderate to severe pain, including pain after surgery. It should not be used for more than 5 days. How should I use this medicine? Take this medicine by mouth with a full glass of water. Follow the directions on the prescription label. Take your medicine at regular intervals. Do not take your medicine more often than directed. Do not take more than the recommended dose. A special MedGuide will be given to you by the pharmacist with each prescription and refill. Be sure to read this information carefully each time. Talk to your strategic manager regarding the use of this medicine in children. While this drug may be prescribed for children as young as 16 years of age for selected conditions, precautions do apply. Patients over 65 years old may have a stronger reaction and need a smaller dose. What side effects may I notice from receiving this medicine? Side effects that you should report to your doctor or health childcare center director as soon as possible: allergic reactions like skin rash, itching or hives, swelling of the face, lips, or tongue black or tarry stools breathing problems changes in vision chest pain high blood pressure nausea or vomiting redness, blistering, peeling or loosening of the skin, including inside the mouth severe abdominal pain slurred speech or weakness on one side of the body unexplained weight gain or swelling unusual bleeding or bruising unusually weak or tired yellowing of eyes or skin Side effects that usually do not require medical attention (report to your doctor or health childcare center director if they continue or are bothersome): diarrhea dizziness headache heartburn What may interact with this medicine? Do not take this medicine with any of the following medications: aspirin and aspirin-like medicines cidofovir methotrexate NSAIDs, medicines for pain and inflammation, like ibuprofen or naproxen pemetrexed probenecid This medicine may also interact with the following medications: alcohol alendronate alprazolam carbamazepine cyclosporine diuretics flavocoxid fluoxetine ginkgo lithium medicines for high blood pressure like enalapril medicines that affect platelets like pentoxifylline medicines that treat or prevent blood clots like heparin, warfarin muscle relaxants phenytoin steroid medicines like prednisone or cortisone thiothixene What if I miss a dose? If you miss a dose, take it as soon as you can. If it is almost time for your next dose, take only that dose. Do not take double or extra doses. Where should I keep my medicine? Keep out of the reach of children. Store at room temperature between 20 and 25 degrees C (68 and 77 degrees F). Throw away any unused medicine after the expiration date. What should I tell my health care provider before I take this medicine? They need to know if you have any of these conditions: asthma bleeding problems like hemophilia cigarette smoker drink more than 3 alcohol containing drinks a day heart disease or circulation problems such as heart failure or leg edema (fluid retention) high blood pressure kidney disease liver disease stomach bleeding or ulcers an unusual or allergic reaction to ketorolac, aspirin, other NSAIDs, other medicines, foods, dyes, or preservatives or trying to get breast-feeding What should I watch for while using this medicine? Tell your doctor or health childcare center director if your pain does not get better. Talk to your doctor before taking another medicine for pain. Do not treat yourself. This medicine does not prevent heart attack or stroke. In fact, this medicine may increase the chance of a heart attack or stroke. The chance may increase with longer use of this medicine and in people who have heart disease. If you take aspirin to prevent heart attack or stroke, talk with your doctor or health childcare center director. Do not take medicines such as ibuprofen and naproxen with this medicine. Side effects such as stomach upset, nausea, or ulcers may be more likely to occur. Many medicines available without a prescription should not be taken with this medicine. This medicine can cause ulcers and bleeding in the stomach and intestines at any time during treatment. Do not smoke cigarettes or drink alcohol. These increase irritation to your stomach and can make it more susceptible to damage from this medicine. Ulcers and bleeding can happen without warning symptoms and can cause . You may get drowsy or dizzy. Do not drive, use machinery, or do anything that needs mental alertness until you know how this medicine affects you. Do not stand or sit up quickly, especially if you are an older patient. This reduces the risk of dizzy or fainting spells. This medicine can cause you to bleed more easily. Try to avoid damage to your teeth and gums when you brush or floss your teeth. You have been given the following additional information: Gouty Arthritis Ketorolac Tromethamine Oral tablet You may walk and bear weight as tolerated. (Electronically signed by Dino Ham MD 11/09/2016 1:05)
--- NOTE | 2016-11-09 01:05 | ED MAR SUMMARY ---
..... Medication Administration Record [facility] [address] [place], [place] [id number] Patient: ALEX ALTAMIRANO Visit ID: [id number] 56y, M Weight: 135.6 kg Height/Length: 66 in BMI: 48.3 ALLERGIES: Latex
--- NOTE | 2016-11-09 01:05 | ED MED RECONCILIATION SUMMARY ---
Patient: ALEX ALTAMIRANO Medication Reconciliation Report [facility] VisitID: [id number] [address] [place] [address] 56y, M Registration Date/Time: 11/08/2016 Weight: 135.6 kg Height/Length: 66 in. BMI: 48.3 ALLERGIES: Latex The patient's Home Medications are listed below: CONTINUE TAKING THE FOLLOWING MEDICATIONS: Allopurinol Oral 40mg , 2x a day AmLODIPine Besylate Oral, pt unsure of dose Aspirin Oral (81 mg), daily Atorvastatin Calcium Oral, daily, pt unsure of dose Carvedilol Phosphate ER Oral, pt unsure of dose Cyclobenzaprine HCl Oral Gabapentin Oral 300 mg, daily THE FOLLOWING MEDICATIONS NEED TO BE RECONCILED: Ketorolac Tromethamine Oral Lasix Oral 40 mg, daily Latuda Oral, pt unsure of dose Lisinopril Oral 20 mg, daily MetFORMIN HCl Oral 500 mg, daily Plavix Oral 75 mg, daily The source(s) of the original Home Medication information: Not obtained. The following Medications were given to the patient in the Emergency Department: None. The following Medications were prescribed to the patient: Toradol 10 mg tablets: Take 1 tablet orally every 6 hours as needed. Dispense fifteen (15). No refills. Substitution is permissible. -- Dino Ham MD
--- NOTE | 2016-11-09 01:05 | ED MED RECONCILIATION SUMMARY ---
Patient: ALEX ALTAMIRANO Medication Reconciliation Report [facility] VisitID: [id number] [address] [place] [address] 56y, M Registration Date/Time: 11/08/2016 Weight: 135.6 kg Height/Length: 66 in. BMI: 48.3 ALLERGIES: Latex The patient's Home Medications are listed below: CONTINUE TAKING THE FOLLOWING MEDICATIONS: Allopurinol Oral 40mg , 2x a day AmLODIPine Besylate Oral, pt unsure of dose Aspirin Oral (81 mg), daily Atorvastatin Calcium Oral, daily, pt unsure of dose Carvedilol Phosphate ER Oral, pt unsure of dose Cyclobenzaprine HCl Oral Gabapentin Oral 300 mg, daily THE FOLLOWING MEDICATIONS NEED TO BE RECONCILED: Ketorolac Tromethamine Oral Lasix Oral 40 mg, daily Latuda Oral, pt unsure of dose Lisinopril Oral 20 mg, daily MetFORMIN HCl Oral 500 mg, daily Plavix Oral 75 mg, daily The source(s) of the original Home Medication information: Not obtained. The following Medications were given to the patient in the Emergency Department: None. The following Medications were prescribed to the patient: Toradol 10 mg tablets: Take 1 tablet orally every 6 hours as needed. Dispense fifteen (15). No refills. Substitution is permissible. -- Dino Ham MD
--- NOTE | 2016-11-09 01:05 | ED MAR SUMMARY ---
..... Medication Administration Record [facility] [address] [place], [place] [id number] Patient: ALEX ALTAMIRANO Visit ID: [id number] 56y, M Weight: 135.6 kg Height/Length: 66 in BMI: 48.3 ALLERGIES: Latex
== END 2016-11-08 03:53 | disposition home or self-care (01) ==
LOC: ED SRH 01:11
DX: M1A.0710 Idiopathic chronic gout, right ankle and foot, without tophus (tophi) (principal); F17.210 Nicotine dependence, cigarettes, uncomplicated

== ENCOUNTER 2016-12-06 04:33 | Emergency (ER) | payer OTHER ==
--- NOTE | 2016-12-06 05:07 | ED CLINICAL REPORT ---
Clinical Report - Physicians/Mid Levels [facility] [address] [place] [address] 12/06/2016 4:34 Patient: ALEX ALTAMIRANO Time Seen: 04:46. Arrived- By private vehicle. Historian- patient. HISTORY OF PRESENT ILLNESS Chief Complaint: RIGHT HIP INJURY. The injury occurred just prior to arrival. Occurred at home. Fell out of bed. The patient complains of severe pain. No blow to the head, neck pain or loss of consciousness. REVIEW OF SYSTEMS No chills, fever, sweats, calf pain or chest pain. No cough, difficulty breathing, pedal edema, palpitations or abdominal pain. No constipation, diarrhea, nausea, vomiting or urinary problems. All systems otherwise negative, except as recorded above. PAST HISTORY Problems: Insomnia [Active]. Carotid Artery Disease [Active]. Congestive Heart Failure [Active]. Gout. Morbid obesity. Chest Pain. Diabetes Mellitus. Headache. Renal Insufficiency. Arthritis. Nerve, pinched. Bipolar Disorder. Upper Extremity Pain. Back Injury. Sciatica. Heart Disease. Insomnia. Substance Abuse. Back Pain. UTI - Urinary Tract Infection. Depression. Nausea. Costochondritis. Tension-Type Headache. URI. Migraine Headache. Dental Abscess. Gastroenteritis. Hypercholesterolemia. Dental Pain. Hypertension. Manic bipolar I disorder. Additional Surgeries: Angioplasty of blood vessel. Back Surgery. Coronary Artery Bypass Graft. Medications: Allopurinol Oral 40mg , 2x a day. AmLODIPine Besylate Oral (pt unsure of dose ). Aspirin Oral (Tablet 81 mg), daily. Atorvastatin Calcium Oral, daily (pt unsure of dose ). Carvedilol Phosphate ER Oral (pt unsure of dose ). Cyclobenzaprine HCl Oral. Gabapentin Oral 300 mg, daily. Ketorolac Tromethamine Oral. Lasix Oral 40 mg, daily. Latuda Oral (pt unsure of dose ). Lisinopril Oral 20 mg, daily. MetFORMIN HCl Oral 500 mg, daily. Plavix Oral 75 mg, daily. Allergies: Latex. Definite Moderate(rash). SOCIAL HISTORY Current every day heavy tobacco smoker (cigarette)- less than 1 pack per day. Occasional alcohol use. History of drug use: marijuana. FAMILY HISTORY No significant family medical history. ADDITIONAL NOTES The nursing notes have been reviewed. PHYSICAL EXAM Vital Signs: 12/06/2016 04:39 BP: 95/39. HR: 82. RR: 24. O2 saturation: 98%. Temp: 97.7 F. Pain level now: 02/26. Have been reviewed. Appearance: Alert. Head: Head non-tender. No swelling of head. Eyes: Pupils equal, round and reactive to light. ENT: No dental injury. Pharynx normal. Neck: Painless ROM. Non-tender. CVS: Heart sounds normal. Respiratory: Breath sounds normal. Abdomen: No visible injury. Soft and nontender. Bowel sounds normal. No organomegaly. No mass. Back: ROM normal. Skin: Skin intact. Skin warm and dry. Extremities: Pelvis stable. Right hip: mild tenderness. Limited ROM secondary to pain. Neurovascular intact distally. No swelling. Neuro: Oriented X 3. No motor deficit. No sensory deficit. LABS, X-RAYS, AND EKG X-Rays: Right hip negative. The X-rays were independently viewed by me. PROGRESS AND PROCEDURES Course of Care: Patient is stable. Patient/family counseled. Old medical records reviewed. Disposition: Discharged. Condition: stable. CLINICAL IMPRESSION Contusion to the right hip. INSTRUCTIONS Apply ice for 20 minutes four times a day until better. Don't apply ice directly to skin and don't use while asleep. Warnings: COMPLICATIONS: Complications from this condition include: possible injury to a nerve, possible injury to a tendon and possible injury to a ligament. Future problems may include loss of function and pain. GENERAL WARNINGS: Return or contact your physician immediately if your condition worsens or changes unexpectedly, if not improving as expected, or if other problems arise. Your Current Medications: CONTINUE TAKING THE FOLLOWING MEDICATIONS: Allopurinol Oral : 40mg 2x a day. AmLODIPine Besylate Oral : pt unsure of dose. Aspirin Oral : Tablet 81 mg, daily. Atorvastatin Calcium Oral : daily, pt unsure of dose. Carvedilol Phosphate ER Oral : pt unsure of dose. Cyclobenzaprine HCl Oral. Gabapentin Oral : 300 mg daily. Ketorolac Tromethamine Oral. Lasix Oral : 40 mg daily. Latuda Oral : pt unsure of dose. Lisinopril Oral : 20 mg daily. MetFORMIN HCl Oral : 500 mg daily. Plavix Oral : 75 mg daily. Follow-up: Follow up with your doctor in seven days if not better. Follow up with an orthopedic surgeon- as recommended by your primary care physician. Understanding of the discharge instructions verbalized by patient. (Electronically signed by Dino Hma MD 12/13/2016 9:16)
--- NOTE | 2016-12-06 05:07 | ED ORDER SUMMARY ---
..... Patient: ALEX ALTAMIRANO OrderSheet [facility] VisitID: [id number] [address] [place] [address] 56y, M Registration Date/Time: 12/06/2016 ORDER SHEET Weight: 136.0 kg (stated) Allergies: Latex GENERAL ORDERS: Hip 2V Right w AP Pelvis Urgent (04:45 12/06/2016 Vasu KAYE) (Ack 4:47 Miguel) (5:33 Araceli ER Biomedical Technician) MEDICATION ORDERS: Toradol IM 60 mg (NOW) (05:07 12/06/2016 Vasu KAYE) (5:36 Daniella R.N.) IV FLUIDS: ORDER SHEET NOTES: [Electronically signed by Ricardo Hernandez R.N. (05:38 12/06/2016)] [Electronically signed by Dino Ham MD (09:16 12/13/2016)] [Electronically locked/signed by Ricardo Hernandez R.N. (05:38 12/06/2016)]
--- NOTE | 2016-12-06 05:07 | ED NURSING NOTES ---
Clinical Report - Nurses [place] [address] [place] [address] 12/06/2016 4:34 Patient: ALEX ALTAMIRANO TRIAGE Triage time 04:39. Acuity: LEVEL 4. Chief Complaint: FALL OUT OF BED (while asleep). Alert. KELLEY COMA SCORE: [place] Coma Scale: 15- eyes open spontaneously (4); best verbal response- oriented x 4 (5); best motor response- obeys commands (6). --04:44 Ricardo Hernandez R.N. 04:39 12/06/16. BP: 95/39 taken on the left arm, via an automated monitor, while sitting. HR: 82. RR: 24 (regular and unlabored). O2 saturation: 98% on room air. Temp: 97.7 F (oral). Pain level now: 02/26. --04:44 Ricardo Hernandez R.N. Weight: 136 kg stated. Height/Length: 66 inches Per Patient. BMI: 48.4. --04:38 Ricardo Hernandez R.N. Medications Allopurinol Oral 40mg , 2x a day. AmLODIPine Besylate Oral (pt unsure of dose ). Aspirin Oral (Tablet 81 mg), daily. Atorvastatin Calcium Oral, daily (pt unsure of dose ). Carvedilol Phosphate ER Oral (pt unsure of dose ). Cyclobenzaprine HCl Oral. Gabapentin Oral 300 mg, daily. Ketorolac Tromethamine Oral. Lasix Oral 40 mg, daily. Latuda Oral (pt unsure of dose ). Lisinopril Oral 20 mg, daily. MetFORMIN HCl Oral 500 mg, daily. Plavix Oral 75 mg, daily. --04:40 Ricardo Hernandez R.N. Allergies Latex. Definite Moderate(rash) --04:40 Ricardo Hernandez R.N. History Arrived by private vehicle. Historian: patient. Accompanied by spouse. Location of injuries: right hip. This occurred just prior to arrival. He has had extremity pain and trouble walking. No loss of consciousness. SOCIAL HX: Heavy tobacco smoker (cigarette)- less than 1 pack per day. Occasional alcohol use. History of occasional drug use: marijuana. SELF HARM ASSESSMENT: A self harm assessment was performed. The patient answered "no" to the question "Have you noticed less interest or pleasure in doing things?" and "Do you have thoughts of harming or killing yourself?". NUTRITIONAL RISK ASSESSMENT: The nutritional risk assessment revealed no deficiencies. FUNCTIONAL ASSESSMENT: Functional assessment: no impairments noted. LEARNING NEEDS ASSESSMENT: The learning needs assessment revealed no barriers. FALL RISK ASSESSMENT: Fall risk assessment completed. Risk factors identified include patient history of fall. SKIN INTEGRITY ASSESSMENT: Skin integrity risk assessment completed. No skin integrity risk identified. --04:44 Ricardo Hernandez R.N. SOCIAL HX: ( Denies HI/SI). --04:44 Ricardo Hernandez R.N. PROBLEMS: Gout. Morbid obesity. Chest Pain. Diabetes Mellitus. Headache. Renal Insufficiency. Arthritis. Nerve, pinched. Bipolar Disorder. Upper Extremity Pain. Back Injury. Sciatica. Heart Disease. Insomnia. Substance Abuse. Back Pain. UTI - Urinary Tract Infection. Depression. Costochondritis. Tension-Type Headache. URI. Migraine Headache. Dental Abscess. Gastroenteritis. Hypercholesterolemia. Dental Pain. Hypertension. Manic bipolar I disorder. --04:41 Ricardo Hernandez R.N. ADDITIONAL SURGERIES: Angioplasty of blood vessel. Back Surgery. Coronary Artery Bypass Graft. --04:41 Ricardo Hernandez R.N. Interventions ID and allergy band on patient. To treatment room. --04:44 Ricardo Hernandez R.N. PHYSICAL ASSESSMENT GENERAL / NEURO / PSYCH: Alert. Oriented X 4. HEENT: Head non-tender. RESPIRATORY: Respirations not labored. Chest nontender. Breath sounds within normal limits. CVS: No abnormal heart sounds. Capillary refill less than 2 seconds. EXTREMITIES: Limited ROM present. Limping gait. Right hip: tenderness. No erythema, swelling, ecchymosis or deformity. ( pt has right hip and right inguinal-area pain with movement, and position change.). SKIN: Skin intact. Skin is warm and dry. --04:49 Ricardo Hernandez R.N. NURSING PROGRESS NOTES Patient gowned. Reassurance given. Two patient identifiers checked. Call light placed in reach. Side rails up x 1. Bed placed in lowest position. Brakes of bed on. Patient ready for evaluation- chart flagged. Patient waiting for evaluation. --04:45 Ricardo Hernandez R.N. 05:26 12/06/2016 Toradol (Ketorolac Tromethamine) IM 60 mg given. Given in the right gluteus adelaide. Allergies verified and confirmed 5 rights. --05:36 Ricardo Hernandez R.N. DISPOSITION / DISCHARGE Departure time: 527. Condition at departure: stable. No learning barriers present. Discharge instructions provided and reviewed with the patient. Reviewed warnings. Treatments reviewed. Reviewed referrals for followup. Patient verbalized understanding. Written instructions provided in [place]. The patient was discharged home and accompanied by spouse. He left the Emergency Department in a wheelchair and via private vehicle. Spouse driving. ( pt states that he will wait in the lobby for his spouse to arrive). --05:38 Ricardo Hernandez R.N. 05:28 12/06/16. BP: 112/70. HR: 77. RR: 24 (regular and unlabored). O2 saturation: 93% on room air. Pain level now: 02/26. --05:38 Ricardo Hernandez R.N. Locked/Released at 12/06/2016 5:38 by Ricardo Hernandez R.N.
--- NOTE | 2016-12-06 05:07 | ED ORDER SUMMARY ---
..... Patient: ALEX ALTAMIRANO OrderSheet [facility] VisitID: [id number] [address] [place] [address] 56y, M Registration Date/Time: 12/06/2016 ORDER SHEET Weight: 136.0 kg (stated) Allergies: Latex GENERAL ORDERS: Hip 2V Right w AP Pelvis Urgent (04:45 12/06/2016 Vsau KAYE) (Ack 4:47 Mgiuel) (5:33 Araceli ER Appeals Officer) MEDICATION ORDERS: Toradol IM 60 mg (NOW) (05:07 12/06/2016 Vasu KAYE) (5:36 Daniella R.N.) IV FLUIDS: ORDER SHEET NOTES: [Electronically signed by Ricardo Hernandez R.N. (05:38 12/06/2016)] [Electronically signed by Dino Ham MD (09:16 12/13/2016)] [Electronically locked/signed by Ricardo Hernandez R.N. (05:38 12/06/2016)]
--- NOTE | 2016-12-06 07:53 | DIAGNOSTIC IMAGING REPORT ---
PROCEDURE: XR HIP 2VW W W/O AP PELVIS-RT INDICATION: TRAUMA/INJURY TECHNIQUE: AP view of the pelvis and hips with lateral view of the right hip. COMPARISON: None. FINDINGS: Mildly suboptimal images. Difficult patient. RIGHT HIP: Normal mineralization. No definite fracture. Normal bony alignment. Mild degenerative change at the hip joint. No unusual adjacent calcifications. PELVIS: Normal mineralization. Pelvic rings are intact. No fractures. Normal alignment. Mild degenerative change at the left hip joint. The visible bowel gas pattern and pelvic soft tissues appear normal. IMPRESSION: 1. Intact right hip and normal pelvis.
--- NOTE | 2016-12-13 09:16 | ED MAR SUMMARY ---
..... Medication Administration Record [facility] [address] [place] [address] Patient: ALEX ALTAMIRANO Visit ID: [id number] 56y, M Weight: 136.0 kg Height/Length: 66 in BMI: 48.4 ALLERGIES: Latex Given 05:26 12/06/2016 Ricardo Hernandez R.N. Medication Administered: TORADOL [IM] (KETOROLAC TROMETHAMINE), Dose: 60 mg IM. Medication Ordered: Toradol IM 60 mg (NOW).
--- NOTE | 2016-12-13 09:16 | ED DISCHARGE INSTRUCTIONS ---
Patient: ALEX ALTAMIRANO General Instructions [facility] VisitID: [id number] [place] [address] 56y, M Registration Date/Time: 12/06/2016 Contusion to the right hip. INSTRUCTIONS Apply ice for 20 minutes four times a day until better. Don't apply ice directly to skin and don't use while asleep. Warnings: COMPLICATIONS: Complications from this condition include: possible injury to a nerve, possible injury to a tendon and possible injury to a ligament. Future problems may include loss of function and pain. GENERAL WARNINGS: Return or contact your physician immediately if your condition worsens or changes unexpectedly, if not improving as expected, or if other problems arise. Your Current Medications: CONTINUE TAKING THE FOLLOWING MEDICATIONS: Allopurinol Oral : 40mg 2x a day. AmLODIPine Besylate Oral : pt unsure of dose. Aspirin Oral : Tablet 81 mg, daily. Atorvastatin Calcium Oral : daily, pt unsure of dose. Carvedilol Phosphate ER Oral : pt unsure of dose. Cyclobenzaprine HCl Oral. Gabapentin Oral : 300 mg daily. Ketorolac Tromethamine Oral. Lasix Oral : 40 mg daily. Latuda Oral : pt unsure of dose. Lisinopril Oral : 20 mg daily. MetFORMIN HCl Oral : 500 mg daily. Plavix Oral : 75 mg daily. Follow-up: Follow up with your doctor in seven days if not better. Follow up with an orthopedic surgeon- as recommended by your primary care physician. Understanding of the discharge instructions verbalized by patient. ADDITIONAL INFORMATION Hip Contusion You have a contusion of the hip. This is a bruise with swelling and some bleeding under the skin. There are no fracture (broken bone) seen on the x-ray. This injury takes a few days to a few weeks to heal. Home Care If walking causes pain, use crutches or a walker until you can walk without pain. These items can be rented at most pharmacies and orthopedic supply stores. Apply an ice pack (ice cubes in a plastic bag, wrapped in a towel) over the injured area for 20 minutes every 1-2 hours the firstday. You should continue with ice packs 3-4 times a day for the next two days. Continue the use of ice packs for relief of pain and swelling as needed. You may use acetaminophen (Tylenol) or ibuprofen (Motrin, Advil) to control pain, unless another pain medicine was prescribed. [NOTE: If you have chronic liver or kidney disease or ever had a stomach ulcer or GI bleeding, talk with your doctor before using these medicines.] If you are not able to get to the bathroom easily or take care of your meal preparation, home health care may be available to provide in-home nursing services. Check with your doctor, the hospital's social service department or through private nursing agencies to see if your insurance will cover this kind of care. Follow Up Follow up with your doctor or as advised by our staff if your symptoms do not begin to improve after one week. A repeat x-ray or a CT-scan may be needed to check again for a fracture. [NOTE: If X-rays were taken, they will be reviewed by a radiologist. You will be notified of any new findings that may affect your care.] Get Prompt Medical Attention Get prompt medical attention if any of the following occur: Increased swelling or increased bruising Pain becomes worse Decreased ability to bear weight on the injured side Swelling or pain below your knee Chest pain or shortness of breath You have been given the following additional information: Hip Contusion (Electronically signed by Dino Ham MD 12/13/2016 9:16)
--- NOTE | 2016-12-13 09:16 | ED MED RECONCILIATION SUMMARY ---
Patient: ALEX ALTAMIRANO Medication Reconciliation Report [facility] VisitID: [id number] [place] [address] 56y, M Registration Date/Time: 12/06/2016 Weight: 136.0 kg Height/Length: 66 in. BMI: 48.4 ALLERGIES: Latex The patient's Home Medications are listed below: CONTINUE TAKING THE FOLLOWING MEDICATIONS: Allopurinol Oral 40mg , 2x a day AmLODIPine Besylate Oral, pt unsure of dose Aspirin Oral (81 mg), daily Atorvastatin Calcium Oral, daily, pt unsure of dose Carvedilol Phosphate ER Oral, pt unsure of dose Cyclobenzaprine HCl Oral Gabapentin Oral 300 mg, daily Ketorolac Tromethamine Oral Lasix Oral 40 mg, daily Latuda Oral, pt unsure of dose Lisinopril Oral 20 mg, daily MetFORMIN HCl Oral 500 mg, daily Plavix Oral 75 mg, daily The source(s) of the original Home Medication information: Not obtained. The following Medications were given to the patient in the Emergency Department: Toradol [IM] IM 60 mg, administered: 12/06/2016 5:26:00 AM The following Medications were prescribed to the patient: None.
--- NOTE | 2016-12-13 09:16 | ED MED RECONCILIATION SUMMARY ---
Patient: ALEX ALTAMIRANO Medication Reconciliation Report [facility] VisitID: [id number] [place] [address] 56y, M Registration Date/Time: 12/06/2016 Weight: 136.0 kg Height/Length: 66 in. BMI: 48.4 ALLERGIES: Latex The patient's Home Medications are listed below: CONTINUE TAKING THE FOLLOWING MEDICATIONS: Allopurinol Oral 40mg , 2x a day AmLODIPine Besylate Oral, pt unsure of dose Aspirin Oral (81 mg), daily Atorvastatin Calcium Oral, daily, pt unsure of dose Carvedilol Phosphate ER Oral, pt unsure of dose Cyclobenzaprine HCl Oral Gabapentin Oral 300 mg, daily Ketorolac Tromethamine Oral Lasix Oral 40 mg, daily Latuda Oral, pt unsure of dose Lisinopril Oral 20 mg, daily MetFORMIN HCl Oral 500 mg, daily Plavix Oral 75 mg, daily The source(s) of the original Home Medication information: Not obtained. The following Medications were given to the patient in the Emergency Department: Toradol [IM] IM 60 mg, administered: 12/06/2016 5:26:00 AM The following Medications were prescribed to the patient: None.
--- NOTE | 2016-12-13 09:16 | ED MAR SUMMARY ---
..... Medication Administration Record [facility] [address] [place] [address] Patient: ALEX ALTAMIRANO Visit ID: [id number] 56y, M Weight: 136.0 kg Height/Length: 66 in BMI: 48.4 ALLERGIES: Latex Given 05:26 12/06/2016 Ricardo Hernandez R.N. Medication Administered: TORADOL [IM] (KETOROLAC TROMETHAMINE), Dose: 60 mg IM. Medication Ordered: Toradol IM 60 mg (NOW).
== END 2016-12-06 05:38 | disposition home or self-care (01) ==
LOC: ED SRH 04:33
DX: S70.01XA Contusion of right hip, initial encounter (principal); M19.90 Unspecified osteoarthritis, unspecified site; W06.XXXA Fall from bed, initial encounter; Y93.9 Activity, unspecified; Y92.009 Unspecified place in unspecified non-institutional (private) residence as the place of occurrence of the external cause; Y99.9 Unspecified external cause status; I51.9 Heart disease, unspecified; I10 Essential (primary) hypertension; E11.9 Type 2 diabetes mellitus without complications; E78.00 Pure hypercholesterolemia, unspecified

== ENCOUNTER 2016-12-13 12:28 | Emergency (ER) | payer OTHER ==
--- NOTE | 2016-12-13 13:47 | ED NURSING NOTES ---
Clinical Report - Nurses [facility] [address] [place] [address] 12/13/2016 12:29 Patient: ALEX ALTAMIRANO TRIAGE Triage time 12:35. Acuity: LEVEL 3. Chief Complaint: (anxiety attack , pain in rt hip, from a fall last week. Has been xrayed.). Alert. No acute distress. JESSICA COMA SCORE: Jessica Coma Scale: 15- eyes open spontaneously (4); best verbal response- oriented x 4 (5); best motor response- obeys commands (6). --12:41 Tracey Le R.N. 12:35 12/13/16. BP: 157/87. HR: 104. RR: 18. O2 saturation: 98%. Temp: 97.7 F. Pain level now: 01/27. --12:41 Tracey Le R.N. 12:35 12/13/16. BP: 157/87. HR: 104. RR: 18. O2 saturation: 98%. Temp: 97.7 F. Pain level now: 01/27. --12:41 Tracey Le R.N. Weight: 136 kg stated. Height/Length: 66 inches Per Patient. BMI: 48.4. --12:35 Tracey Le R.N. Medications Allopurinol Oral 40mg , 2x a day. AmLODIPine Besylate Oral (pt unsure of dose ). Aspirin Oral (Tablet 81 mg), daily. Atorvastatin Calcium Oral, daily (pt unsure of dose ). Carvedilol Phosphate ER Oral (pt unsure of dose ). --12:39 Tracey Le R.N. Cyclobenzaprine HCl Oral. Gabapentin Oral 300 mg, daily. Ketorolac Tromethamine Oral. Lasix Oral 40 mg, daily. Latuda Oral (pt unsure of dose ). Lisinopril Oral 20 mg, daily. MetFORMIN HCl Oral 500 mg, daily. Plavix Oral 75 mg, daily. --12:39 Tracey Le R.N. Allergies Latex. Definite Moderate(rash) --12:39 Tracey Le R.N. History Arrived by private vehicle. Historian: patient. Primary physician (jeremy). ( drove self). This started yesterday. Onset. (" is out of town"). 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 (valium). PAST MEDICAL HX: Immunizations: status is unknown. SOCIAL HX: Smoker- current status unknown. No alcohol use or drug use. FALL RISK ASSESSMENT: Fall risk assessment completed. No fall risk identified. NUTRITIONAL RISK ASSESSMENT: The nutritional risk assessment revealed no deficiencies. FUNCTIONAL ASSESSMENT: Functional assessment: no impairments noted. LEARNING NEEDS ASSESSMENT: The learning needs assessment revealed no barriers. SKIN INTEGRITY ASSESSMENT: Skin integrity risk assessment completed. No skin integrity risk identified. --12:41 Tracey Le R.N. PROBLEMS: Insomnia [Active]. Carotid Artery Disease [Active]. Congestive Heart Failure [Active]. --12:40 Tracey Le R.N. Contusion. Gout. Morbid obesity. Chest Pain. Diabetes Mellitus. Headache. Renal Insufficiency. Arthritis. Nerve, pinched. Bipolar Disorder. Upper Extremity Pain. Back Injury. Sciatica. Heart Disease. Insomnia. Substance Abuse. Back Pain. UTI - Urinary Tract Infection. Depression. Nausea. Costochondritis. Tension-Type Headache. URI. Migraine Headache. Dental Abscess. Gastroenteritis. Hypercholesterolemia. Dental Pain. Hypertension. Manic bipolar I disorder. --12:40 Tracey Le R.N. ADDITIONAL SURGERIES: Angioplasty of blood vessel. Back Surgery. Coronary Artery Bypass Graft. --12:40 Tracey Le R.N. Interventions ID band on patient. To room. --12:41 Tracey Le R.N. PHYSICAL ASSESSMENT Ambulatory to room. Patient gowned. GENERAL / NEURO / PSYCH: Alert. Oriented X 4. Appears anxious. HEENT: Mucous membranes are pink. RESPIRATORY: Respirations not labored. CVS: Capillary refill less than 2 seconds. GI / : Abdomen nontender. SKIN: Skin intact. Skin is warm and dry. Normal skin turgor. --12:42 Tracey Le R.N. NURSING PROGRESS NOTES Patient gowned. Head of bed elevated. Two patient identifiers checked. Call light placed in reach. Side rails up x 1. Bed placed in lowest position. Brakes of bed on. Patient ready for evaluation. --12:42 Tracey Le R.N. DISPOSITION / DISCHARGE The patient left prior to discharge education being provided. ( when this RN went in to dc patient, no one in room gown on [facility]- primary RN notified. no care performed by this RN). --14:04 Tha Napoles R.N. 14:04. ( Patient's paperwork for the dc, mailed to the address provided by the patient.). --14:12 Tracey Le R.N. ( Attempted to call the patient at home. 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 --14:17 Tracey Le R.N. Locked/Released at 12/13/2016 14:17 by Tracey Le R.N.
--- NOTE | 2016-12-13 13:47 | ED CLINICAL REPORT ---
Clinical Report - Physicians/Mid Levels [facility] [address] [place] [address] 12/13/2016 12:29 Patient: ALEX ALTAMIRANO Time Seen: 12:36; initial patient contact. Arrived- By private vehicle. Historian- patient. HISTORY OF PRESENT ILLNESS Chief Complaint: ANXIOUS. This started about 2 days ago. The patient has experienced situational problems related to spouse ( is working out of town for the next 2 weeks.). He is compliant with medication. No recent drug use or alcohol consumption. Has been depressed but sleeping. He has had anxiety. No anger, unusual behavior, delusions, suicidal thoughts or self-injury inflicted. No hallucinations. The symptoms are described as mild. No injury is present. Similar symptoms previously: Recent medical care: Not recently seen/assessed. REVIEW OF SYSTEMS No chest pain, abdominal pain, vomiting or diarrhea. He has had palpitations. All systems otherwise negative, except as recorded above. PAST HISTORY ( Insomnia [Active]. Carotid Artery Disease [Active]. Congestive Heart Failure [Active]. --12:40 Tracey Le R.N. Contusion. Gout. Morbid obesity. Chest Pain. Diabetes Mellitus. Headache. Renal Insufficiency. Arthritis. Nerve, pinched. Bipolar Disorder. Upper Extremity Pain. Back Injury. Sciatica. Heart Disease. Insomnia. Substance Abuse. Back Pain. UTI - Urinary Tract Infection. Depression. Nausea. Costochondritis. Tension-Type Headache. URI. Migraine Headache. Dental Abscess. Gastroenteritis. Hypercholesterolemia. Dental Pain. Hypertension. Manic bipolar I disorder. ADDITIONAL SURGERIES: Angioplasty of blood vessel. Back Surgery. Coronary Artery Bypass Graft.). Medications: Cyclobenzaprine HCl Oral. Gabapentin Oral 300 mg, daily. Ketorolac Tromethamine Oral. Lasix Oral 40 mg, daily. Latuda Oral (pt unsure of dose ). Lisinopril Oral 20 mg, daily. MetFORMIN HCl Oral 500 mg, daily. Plavix Oral 75 mg, daily. Allopurinol Oral 40mg , 2x a day. AmLODIPine Besylate Oral (pt unsure of dose ). Aspirin Oral (Tablet 81 mg), daily. Atorvastatin Calcium Oral, daily (pt unsure of dose ). Carvedilol Phosphate ER Oral (pt unsure of dose ). Allergies: Latex. Definite Moderate(rash). SOCIAL HISTORY Smoker - current status unknown. No alcohol use or drug use. Has social support. Has place to stay. ADDITIONAL NOTES The nursing notes have been reviewed. PHYSICAL EXAM Vital Signs: 12/13/2016 12:35 BP: 157/87. HR: 104. RR: 18. O2 saturation: 98%. Temp: 97.7 F. Pain level now: 01/27. Have been reviewed. Hypertensive. Tachycardic. Respiratory rate normal. Temperature normal. Oxygen saturation normal. Appearance: Alert. No acute distress. Appearance is normal. CVS: Normal heart rate and rhythm. Heart sounds normal. Respiratory: No respiratory distress. Breath sounds normal. Psych / Neuro: Oriented X 3. Appears depressed. Speech normal. Cognition normal. Thought process and content normal. Insight and judgement normal. PROGRESS AND PROCEDURES Disposition: Discharged home in good condition. Condition: good. INSTRUCTIONS Your Current Medications: CONTINUE TAKING THE FOLLOWING MEDICATIONS: Allopurinol Oral : 40mg 2x a day. AmLODIPine Besylate Oral : pt unsure of dose. Aspirin Oral : Tablet 81 mg, daily. Atorvastatin Calcium Oral : daily, pt unsure of dose. Carvedilol Phosphate ER Oral : pt unsure of dose. Cyclobenzaprine HCl Oral. Gabapentin Oral : 300 mg daily. Ketorolac Tromethamine Oral. Lasix Oral : 40 mg daily. Latuda Oral : pt unsure of dose. Lisinopril Oral : 20 mg daily. MetFORMIN HCl Oral : 500 mg daily. Plavix Oral : 75 mg daily. Prescription Medications: Vistaril 50 mg: take 1 orally every 6 hours as needed for anxiety. Dispense twenty (20). No refill. Substitution is permissible. Follow-up: Follow up with your doctor in about two days. Call for an appointment. Blood pressure screening was not performed during this visit because the patient has an active diagnosis of hypertension. (Electronically signed by Oliver Gonzalez Dr. 12/13/2016 13:49)
--- NOTE | 2016-12-13 13:47 | ED NURSING NOTES ---
Clinical Report - Nurses [facility] [address] [place] [address] 12/13/2016 12:29 Patient: ALEX ALTAMIRANO TRIAGE Triage time 12:35. Acuity: LEVEL 3. Chief Complaint: (anxiety attack , pain in rt hip, from a fall last week. Has been xrayed.). Alert. No acute distress. JESSICA COMA SCORE: Jessica Coma Scale: 15- eyes open spontaneously (4); best verbal response- oriented x 4 (5); best motor response- obeys commands (6). --12:41 Tracey Le R.N. 12:35 12/13/16. BP: 157/87. HR: 104. RR: 18. O2 saturation: 98%. Temp: 97.7 F. Pain level now: 01/27. --12:41 Tracey Le R.N. 12:35 12/13/16. BP: 157/87. HR: 104. RR: 18. O2 saturation: 98%. Temp: 97.7 F. Pain level now: 01/27. --12:41 Tracey Le R.N. Weight: 136 kg stated. Height/Length: 66 inches Per Patient. BMI: 48.4. --12:35 Tracey Le R.N. Medications Allopurinol Oral 40mg , 2x a day. AmLODIPine Besylate Oral (pt unsure of dose ). Aspirin Oral (Tablet 81 mg), daily. Atorvastatin Calcium Oral, daily (pt unsure of dose ). Carvedilol Phosphate ER Oral (pt unsure of dose ). --12:39 Tracey Le R.N. Cyclobenzaprine HCl Oral. Gabapentin Oral 300 mg, daily. Ketorolac Tromethamine Oral. Lasix Oral 40 mg, daily. Latuda Oral (pt unsure of dose ). Lisinopril Oral 20 mg, daily. MetFORMIN HCl Oral 500 mg, daily. Plavix Oral 75 mg, daily. --12:39 Tracey Le R.N. Allergies Latex. Definite Moderate(rash) --12:39 Tracey Le R.N. History Arrived by private vehicle. Historian: patient. Primary physician (jeremy). ( drove self). This started yesterday. Onset. (" is out of town"). 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 (valium). PAST MEDICAL HX: Immunizations: status is unknown. SOCIAL HX: Smoker- current status unknown. No alcohol use or drug use. FALL RISK ASSESSMENT: Fall risk assessment completed. No fall risk identified. NUTRITIONAL RISK ASSESSMENT: The nutritional risk assessment revealed no deficiencies. FUNCTIONAL ASSESSMENT: Functional assessment: no impairments noted. LEARNING NEEDS ASSESSMENT: The learning needs assessment revealed no barriers. SKIN INTEGRITY ASSESSMENT: Skin integrity risk assessment completed. No skin integrity risk identified. --12:41 Tracey Le R.N. PROBLEMS: Insomnia [Active]. Carotid Artery Disease [Active]. Congestive Heart Failure [Active]. --12:40 Tracey Le R.N. Contusion. Gout. Morbid obesity. Chest Pain. Diabetes Mellitus. Headache. Renal Insufficiency. Arthritis. Nerve, pinched. Bipolar Disorder. Upper Extremity Pain. Back Injury. Sciatica. Heart Disease. Insomnia. Substance Abuse. Back Pain. UTI - Urinary Tract Infection. Depression. Nausea. Costochondritis. Tension-Type Headache. URI. Migraine Headache. Dental Abscess. Gastroenteritis. Hypercholesterolemia. Dental Pain. Hypertension. Manic bipolar I disorder. --12:40 Tracey Le R.N. ADDITIONAL SURGERIES: Angioplasty of blood vessel. Back Surgery. Coronary Artery Bypass Graft. --12:40 Tracey Le R.N. Interventions ID band on patient. To room. --12:41 Tracey Le R.N. PHYSICAL ASSESSMENT Ambulatory to room. Patient gowned. GENERAL / NEURO / PSYCH: Alert. Oriented X 4. Appears anxious. HEENT: Mucous membranes are pink. RESPIRATORY: Respirations not labored. CVS: Capillary refill less than 2 seconds. GI / : Abdomen nontender. SKIN: Skin intact. Skin is warm and dry. Normal skin turgor. --12:42 Tracey Le R.N. NURSING PROGRESS NOTES Patient gowned. Head of bed elevated. Two patient identifiers checked. Call light placed in reach. Side rails up x 1. Bed placed in lowest position. Brakes of bed on. Patient ready for evaluation. --12:42 Tracey Le R.N. DISPOSITION / DISCHARGE The patient left prior to discharge education being provided. ( when this RN went in to dc patient, no one in room gown on [facility]- primary RN notified. no care performed by this RN). --14:04 Tha Napoles R.N. 14:04. ( Patient's paperwork for the dc, mailed to the address provided by the patient.). --14:12 Tracey Le R.N. ( Attempted to call the patient at home. 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 --14:17 Tracey Le R.N. Locked/Released at 12/13/2016 14:17 by Tracey Le R.N.
--- NOTE | 2016-12-13 14:17 | ED DISCHARGE INSTRUCTIONS ---
Patient: ALEX ALTAMIRANO General Instructions Located Within [facility] VisitID: [id number] [place] [address] 56y, M Registration Date/Time: 12/13/2016 INSTRUCTIONS Your Current Medications: CONTINUE TAKING THE FOLLOWING MEDICATIONS: Allopurinol Oral : 40mg 2x a day. AmLODIPine Besylate Oral : pt unsure of dose. Aspirin Oral : Tablet 81 mg, daily. Atorvastatin Calcium Oral : daily, pt unsure of dose. Carvedilol Phosphate ER Oral : pt unsure of dose. Cyclobenzaprine HCl Oral. Gabapentin Oral : 300 mg daily. Ketorolac Tromethamine Oral. Lasix Oral : 40 mg daily. Latuda Oral : pt unsure of dose. Lisinopril Oral : 20 mg daily. MetFORMIN HCl Oral : 500 mg daily. Plavix Oral : 75 mg daily. Prescription Medications: Vistaril 50 mg: take 1 orally every 6 hours as needed for anxiety. Dispense twenty (20). No refill. Substitution is permissible. Follow-up: Follow up with your doctor in about two days. Call for an appointment. Blood pressure screening was not performed during this visit because the patient has an active diagnosis of hypertension. ADDITIONAL INFORMATION Hydroxyzine Pamoate Oral capsule What is this medicine? HYDROXYZINE (chula DROX i zeen) is an antihistamine. This medicine is used to treat allergy symptoms. It is also used to treat anxiety and tension. This medicine can be used with other medicines to induce sleep before surgery. How should I use this medicine? Take this medicine by mouth with a full glass of water. Follow the directions on the prescription label. You may take this medicine with food or on an empty stomach. Take your medicine at regular intervals. Do not take your medicine more often than directed. Talk to your chief lending officer regarding the use of this medicine in children. Special care may be needed. While this drug may be prescribed for children as young as 6 years of age for selected conditions, precautions do apply. Patients over 65 years old may have a stronger reaction and need a smaller dose. What side effects may I notice from receiving this medicine? Side effects that you should report to your doctor or health child adolescent care as soon as possible: fast or irregular heartbeat difficulty passing urine seizures slurred speech or confusion tremor Side effects that usually do not require medical attention (report to your doctor or health child adolescent care if they continue or are bothersome): constipation drowsiness fatigue headache stomach upset What may interact with this medicine? alcohol barbiturate medicines for sleep or seizures medicines for colds, allergies medicines for depression, anxiety, or emotional disturbances medicines for pain medicines for sleep muscle relaxants What if I miss a dose? If you miss a dose, take it as soon as you can. If it is almost time for your next dose, take only that dose. Do not take double or extra doses. Where should I keep my medicine? Keep out of the reach of children. Store at room temperature between 15 and 30 degrees C (59 and 86 degrees F). Keep container tightly closed. Throw away any unused medicine after the expiration date. What should I tell my health care provider before I take this medicine? They need to know if you have any of these conditions: any chronic illness difficulty passing urine glaucoma heart disease kidney disease liver disease lung disease an unusual or allergic reaction to hydroxyzine, cetirizine, other medicines, foods, dyes, or preservatives or trying to get breast-feeding What should I watch for while using this medicine? Tell your doctor or health child adolescent care if your symptoms do not improve. You may get drowsy or dizzy. Do not drive, use machinery, or do anything that needs mental alertness until you know how this medicine affects you. Do not stand or sit up quickly, especially if you are an older patient. This reduces the risk of dizzy or fainting spells. Alcohol may interfere with the effect of this medicine. Avoid alcoholic drinks. Your mouth may get dry. Chewing sugarless gum or sucking hard candy, and drinking plenty of water may help. Contact your doctor if the problem does not go away or is severe. This medicine may cause dry eyes and blurred vision. If you wear contact lenses you may feel some discomfort. Lubricating drops may help. See your eye doctor if the problem does not go away or is severe. If you are receiving skin tests for allergies, tell your doctor you are using this medicine. You have been given the following additional information: Hydroxyzine Pamoate Oral capsule (Electronically signed by Oliver Gonzalez Dr. 12/13/2016 13:49)
--- NOTE | 2016-12-13 14:17 | ED MAR SUMMARY ---
..... Medication Administration Record [facility] [address] [place], [place] [id number] Patient: ALEX ALTAMIRANO Visit ID: [id number] 56y, M Weight: 136.0 kg Height/Length: 66 in BMI: 48.4 ALLERGIES: Latex
--- NOTE | 2016-12-13 14:17 | ED MAR SUMMARY ---
..... Medication Administration Record [facility] [address] [place], [place] [id number] Patient: ALEX ALTAMIRANO Visit ID: [id number] 56y, M Weight: 136.0 kg Height/Length: 66 in BMI: 48.4 ALLERGIES: Latex
--- NOTE | 2016-12-13 14:17 | ED MED RECONCILIATION SUMMARY ---
Patient: ALEX ALTAMIRANO Medication Reconciliation Report [facility] VisitID: [id number] [address] [place] [address] 56y, M Registration Date/Time: 12/13/2016 Weight: 136.0 kg Height/Length: 66 in. BMI: 48.4 ALLERGIES: Latex The patient's Home Medications are listed below: CONTINUE TAKING THE FOLLOWING MEDICATIONS: Allopurinol Oral 40mg , 2x a day AmLODIPine Besylate Oral, pt unsure of dose Aspirin Oral (81 mg), daily Atorvastatin Calcium Oral, daily, pt unsure of dose Carvedilol Phosphate ER Oral, pt unsure of dose Cyclobenzaprine HCl Oral Gabapentin Oral 300 mg, daily Ketorolac Tromethamine Oral Lasix Oral 40 mg, daily Latuda Oral, pt unsure of dose Lisinopril Oral 20 mg, daily MetFORMIN HCl Oral 500 mg, daily Plavix Oral 75 mg, daily The source(s) of the original Home Medication information: Not obtained. The following Medications were given to the patient in the Emergency Department: None. The following Medications were prescribed to the patient: Vistaril 50 mg: take 1 orally every 6 hours as needed for anxiety. Dispense twenty (20). No refill. Substitution is permissible. -- Oliver Gonzalez Dr.
--- NOTE | 2016-12-13 14:17 | ED MED RECONCILIATION SUMMARY ---
Patient: ALEX ALTAMIRANO Medication Reconciliation Report [facility] VisitID: [id number] [address] [place] [address] 56y, M Registration Date/Time: 12/13/2016 Weight: 136.0 kg Height/Length: 66 in. BMI: 48.4 ALLERGIES: Latex The patient's Home Medications are listed below: CONTINUE TAKING THE FOLLOWING MEDICATIONS: Allopurinol Oral 40mg , 2x a day AmLODIPine Besylate Oral, pt unsure of dose Aspirin Oral (81 mg), daily Atorvastatin Calcium Oral, daily, pt unsure of dose Carvedilol Phosphate ER Oral, pt unsure of dose Cyclobenzaprine HCl Oral Gabapentin Oral 300 mg, daily Ketorolac Tromethamine Oral Lasix Oral 40 mg, daily Latuda Oral, pt unsure of dose Lisinopril Oral 20 mg, daily MetFORMIN HCl Oral 500 mg, daily Plavix Oral 75 mg, daily The source(s) of the original Home Medication information: Not obtained. The following Medications were given to the patient in the Emergency Department: None. The following Medications were prescribed to the patient: Vistaril 50 mg: take 1 orally every 6 hours as needed for anxiety. Dispense twenty (20). No refill. Substitution is permissible. -- Oliver Gonzalez Dr.
--- NOTE | 2016-12-13 14:17 | ED DISCHARGE INSTRUCTIONS ---
Patient: ALEX ALTAMIRANO General Instructions [facility] VisitID: [id number] [place] [address] 56y, M Registration Date/Time: 12/13/2016 INSTRUCTIONS Your Current Medications: CONTINUE TAKING THE FOLLOWING MEDICATIONS: Allopurinol Oral : 40mg 2x a day. AmLODIPine Besylate Oral : pt unsure of dose. Aspirin Oral : Tablet 81 mg, daily. Atorvastatin Calcium Oral : daily, pt unsure of dose. Carvedilol Phosphate ER Oral : pt unsure of dose. Cyclobenzaprine HCl Oral. Gabapentin Oral : 300 mg daily. Ketorolac Tromethamine Oral. Lasix Oral : 40 mg daily. Latuda Oral : pt unsure of dose. Lisinopril Oral : 20 mg daily. MetFORMIN HCl Oral : 500 mg daily. Plavix Oral : 75 mg daily. Prescription Medications: Vistaril 50 mg: take 1 orally every 6 hours as needed for anxiety. Dispense twenty (20). No refill. Substitution is permissible. Follow-up: Follow up with your doctor in about two days. Call for an appointment. Blood pressure screening was not performed during this visit because the patient has an active diagnosis of hypertension. ADDITIONAL INFORMATION Hydroxyzine Pamoate Oral capsule What is this medicine? HYDROXYZINE (chula DROX i zeen) is an antihistamine. This medicine is used to treat allergy symptoms. It is also used to treat anxiety and tension. This medicine can be used with other medicines to induce sleep before surgery. How should I use this medicine? Take this medicine by mouth with a full glass of water. Follow the directions on the prescription label. You may take this medicine with food or on an empty stomach. Take your medicine at regular intervals. Do not take your medicine more often than directed. Talk to your wallpaper hanger regarding the use of this medicine in children. Special care may be needed. While this drug may be prescribed for children as young as 6 years of age for selected conditions, precautions do apply. Patients over 65 years old may have a stronger reaction and need a smaller dose. What side effects may I notice from receiving this medicine? Side effects that you should report to your doctor or health reproductive healthcare assistant as soon as possible: fast or irregular heartbeat difficulty passing urine seizures slurred speech or confusion tremor Side effects that usually do not require medical attention (report to your doctor or health reproductive healthcare assistant if they continue or are bothersome): constipation drowsiness fatigue headache stomach upset What may interact with this medicine? alcohol barbiturate medicines for sleep or seizures medicines for colds, allergies medicines for depression, anxiety, or emotional disturbances medicines for pain medicines for sleep muscle relaxants What if I miss a dose? If you miss a dose, take it as soon as you can. If it is almost time for your next dose, take only that dose. Do not take double or extra doses. Where should I keep my medicine? Keep out of the reach of children. Store at room temperature between 15 and 30 degrees C (59 and 86 degrees F). Keep container tightly closed. Throw away any unused medicine after the expiration date. What should I tell my health care provider before I take this medicine? They need to know if you have any of these conditions: any chronic illness difficulty passing urine glaucoma heart disease kidney disease liver disease lung disease an unusual or allergic reaction to hydroxyzine, cetirizine, other medicines, foods, dyes, or preservatives or trying to get breast-feeding What should I watch for while using this medicine? Tell your doctor or health reproductive healthcare assistant if your symptoms do not improve. You may get drowsy or dizzy. Do not drive, use machinery, or do anything that needs mental alertness until you know how this medicine affects you. Do not stand or sit up quickly, especially if you are an older patient. This reduces the risk of dizzy or fainting spells. Alcohol may interfere with the effect of this medicine. Avoid alcoholic drinks. Your mouth may get dry. Chewing sugarless gum or sucking hard candy, and drinking plenty of water may help. Contact your doctor if the problem does not go away or is severe. This medicine may cause dry eyes and blurred vision. If you wear contact lenses you may feel some discomfort. Lubricating drops may help. See your eye doctor if the problem does not go away or is severe. If you are receiving skin tests for allergies, tell your doctor you are using this medicine. You have been given the following additional information: Hydroxyzine Pamoate Oral capsule (Electronically signed by Oliver Gonzalez Dr. 12/13/2016 13:49)
== END 2016-12-13 14:04 | disposition home or self-care (01) ==
LOC: ED SRH 12:28
DX: F41.9 Anxiety disorder, unspecified (principal); I11.0 Hypertensive heart disease with heart failure; E11.29 Type 2 diabetes mellitus with other diabetic kidney complication; N28.9 Disorder of kidney and ureter, unspecified; F31.9 Bipolar disorder, unspecified; E78.00 Pure hypercholesterolemia, unspecified; Z79.82 Long term (current) use of aspirin; Z79.899 Other long term (current) drug therapy; Z79.84 Long term (current) use of oral hypoglycemic drugs; Z79.02 Long term (current) use of antithrombotics/antiplatelets

== ENCOUNTER 2016-12-13 18:49 | Emergency (ER) | payer OTHER ==
--- NOTE | 2016-12-13 19:25 | ED NURSING NOTES ---
Clinical Report - Nurses [facility] [address] [place] [address] 12/13/2016 18:49 Patient: ALEX ALTAMIRANO TRIAGE Triage time 19:06. Acuity: LEVEL 3. Chief Complaint: (anxiety, seen here earlier and left w/o dc papers. Patient states same c/o Pain in the rt groin from a afll on the .). Alert. No acute distress. --19:14 Tracey Le R.N. 19:06 12/13/16. BP: 138/71. HR: 59. RR: 20. O2 saturation: 98%. Temp: 98.9 F. Pain level now: 01/27. --19:14 Tracey Le R.N. Weight: 136 kg stated. Height/Length: 66 inches Per Patient. BMI: 48.4. --19:11 Tracey Le R.N. Medications Allopurinol Oral 40mg , 2x a day. AmLODIPine Besylate Oral (pt unsure of dose ). Aspirin Oral (Tablet 81 mg), daily. Atorvastatin Calcium Oral, daily (pt unsure of dose ). Carvedilol Phosphate ER Oral (pt unsure of dose ). Cyclobenzaprine HCl Oral. Gabapentin Oral 300 mg, daily. Ketorolac Tromethamine Oral. Lasix Oral 40 mg, daily. Latuda Oral (pt unsure of dose ). Lisinopril Oral 20 mg, daily. MetFORMIN HCl Oral 500 mg, daily. Plavix Oral 75 mg, daily. --19:08 Tracey Le R.N. Valium 5mg day, can take 2 . --19:09 Tracey Le R.N. Medication/allergy information source: the patient. --19:14 Tracey Le R.N. Allergies Latex. Definite Moderate(rash) --19:08 Tracey Le R.N. History Arrived by private vehicle. Historian: patient. Primary physician (jeremy). ( dropped off). This started yesterday. ( pain in rt groin area.). 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 PAST MEDICAL HX: Immunizations: status is unknown. SOCIAL HX: Never smoker. History of drug use. Recently used drugs days ago. No alcohol use. FALL RISK ASSESSMENT: Fall risk assessment completed. No fall risk identified. NUTRITIONAL RISK ASSESSMENT: The nutritional risk assessment revealed no deficiencies. FUNCTIONAL ASSESSMENT: Functional assessment: no impairments noted. LEARNING NEEDS ASSESSMENT: The learning needs assessment revealed no barriers. SKIN INTEGRITY ASSESSMENT: Skin integrity risk assessment completed. No skin integrity risk identified. --19:14 Tracey Le R.N. PROBLEMS: Insomnia [Active]. Carotid Artery Disease [Active]. Congestive Heart Failure [Active]. --19:10 Tracey Le R.N. Contusion. Gout. Morbid obesity. Chest Pain. Diabetes Mellitus. Headache. Renal Insufficiency. Arthritis. Nerve, pinched. Bipolar Disorder. Upper Extremity Pain. Back Injury. Sciatica. Heart Disease. Insomnia. Substance Abuse. Back Pain. UTI - Urinary Tract Infection. Depression. Nausea. Costochondritis. Tension-Type Headache. URI. Migraine Headache. Dental Abscess. Gastroenteritis. Hypercholesterolemia. Dental Pain. Manic bipolar I disorder. --19:10 Tracey Le R.N. ADDITIONAL SURGERIES: Angioplasty of blood vessel. Back Surgery. Coronary Artery Bypass Graft. --19:10 Tracey Le R.N. Interventions ID band on patient. To room. --19:14 Tracey Le R.N. PHYSICAL ASSESSMENT Ambulatory to room. Patient gowned. GENERAL / NEURO / PSYCH: Alert. Oriented X 4. Appears in pain. HEENT: Mucous membranes are pink. RESPIRATORY: Respirations not labored. CVS: Capillary refill less than 2 seconds. GI / : ( rt groin pain from previous visit/fall.). Abdomen nontender. SKIN: Skin intact. Skin is warm and dry. Normal skin turgor. --19:15 Tracey Le R.N. NURSING PROGRESS NOTES Patient gowned. Head of bed elevated. Two patient identifiers checked. Call light placed in reach. Side rails up x 1. Bed placed in lowest position. Brakes of bed on. Patient ready for evaluation. --19:15 Tracey Le R.N. DISPOSITION / DISCHARGE Condition at departure: improved. No learning barriers present. Patient verbalized understanding. Written instructions provided in Mosotho. The patient was discharged home and accompanied by personnel psychologist. He left the Emergency Department ambulatory and via private vehicle. Pharmacy Laboratory Technician driving. Medication list reviewed and validated. --19:49 Tracey Le R.N. 19:06 12/13/16. BP: 138/71. HR: 59. RR: 20. O2 saturation: 98%. Temp: 98.9 F. Pain level now: 01/27. --19:49 Tracey Le R.N. Locked/Released at 12/13/2016 19:49 by Tracey Le R.N.
--- NOTE | 2016-12-13 19:25 | ED NURSING NOTES ---
Clinical Report - Nurses [facility] [address] [place] [address] 12/13/2016 18:49 Patient: ALEX ALTAMIRANO TRIAGE Triage time 19:06. Acuity: LEVEL 3. Chief Complaint: (anxiety, seen here earlier and left w/o dc papers. Patient states same c/o Pain in the rt groin from a afll on the .). Alert. No acute distress. --19:14 Tracey Le R.N. 19:06 12/13/16. BP: 138/71. HR: 59. RR: 20. O2 saturation: 98%. Temp: 98.9 F. Pain level now: 01/27. --19:14 Tracey Le R.N. Weight: 136 kg stated. Height/Length: 66 inches Per Patient. BMI: 48.4. --19:11 Tracey Le R.N. Medications Allopurinol Oral 40mg , 2x a day. AmLODIPine Besylate Oral (pt unsure of dose ). Aspirin Oral (Tablet 81 mg), daily. Atorvastatin Calcium Oral, daily (pt unsure of dose ). Carvedilol Phosphate ER Oral (pt unsure of dose ). Cyclobenzaprine HCl Oral. Gabapentin Oral 300 mg, daily. Ketorolac Tromethamine Oral. Lasix Oral 40 mg, daily. Latuda Oral (pt unsure of dose ). Lisinopril Oral 20 mg, daily. MetFORMIN HCl Oral 500 mg, daily. Plavix Oral 75 mg, daily. --19:08 Tracey Le R.N. Valium 5mg day, can take 2 . --19:09 Tracey Le R.N. Medication/allergy information source: the patient. --19:14 Tracey Le R.N. Allergies Latex. Definite Moderate(rash) --19:08 Tracey Le R.N. History Arrived by private vehicle. Historian: patient. Primary physician (jeremy). ( dropped off). This started yesterday. ( pain in rt groin area.). 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 PAST MEDICAL HX: Immunizations: status is unknown. SOCIAL HX: Never smoker. History of drug use. Recently used drugs days ago. No alcohol use. FALL RISK ASSESSMENT: Fall risk assessment completed. No fall risk identified. NUTRITIONAL RISK ASSESSMENT: The nutritional risk assessment revealed no deficiencies. FUNCTIONAL ASSESSMENT: Functional assessment: no impairments noted. LEARNING NEEDS ASSESSMENT: The learning needs assessment revealed no barriers. SKIN INTEGRITY ASSESSMENT: Skin integrity risk assessment completed. No skin integrity risk identified. --19:14 Tracey Le R.N. PROBLEMS: Insomnia [Active]. Carotid Artery Disease [Active]. Congestive Heart Failure [Active]. --19:10 Tracey Le R.N. Contusion. Gout. Morbid obesity. Chest Pain. Diabetes Mellitus. Headache. Renal Insufficiency. Arthritis. Nerve, pinched. Bipolar Disorder. Upper Extremity Pain. Back Injury. Sciatica. Heart Disease. Insomnia. Substance Abuse. Back Pain. UTI - Urinary Tract Infection. Depression. Nausea. Costochondritis. Tension-Type Headache. URI. Migraine Headache. Dental Abscess. Gastroenteritis. Hypercholesterolemia. Dental Pain. Manic bipolar I disorder. --19:10 Tracey Le R.N. ADDITIONAL SURGERIES: Angioplasty of blood vessel. Back Surgery. Coronary Artery Bypass Graft. --19:10 Tracey Le R.N. Interventions ID band on patient. To room. --19:14 Tracey Le R.N. PHYSICAL ASSESSMENT Ambulatory to room. Patient gowned. GENERAL / NEURO / PSYCH: Alert. Oriented X 4. Appears in pain. HEENT: Mucous membranes are pink. RESPIRATORY: Respirations not labored. CVS: Capillary refill less than 2 seconds. GI / : ( rt groin pain from previous visit/fall.). Abdomen nontender. SKIN: Skin intact. Skin is warm and dry. Normal skin turgor. --19:15 Tracey Le R.N. NURSING PROGRESS NOTES Patient gowned. Head of bed elevated. Two patient identifiers checked. Call light placed in reach. Side rails up x 1. Bed placed in lowest position. Brakes of bed on. Patient ready for evaluation. --19:15 Tracey Le R.N. DISPOSITION / DISCHARGE Condition at departure: improved. No learning barriers present. Patient verbalized understanding. Written instructions provided in Emirati. The patient was discharged home and accompanied by brick pitcher. He left the Emergency Department ambulatory and via private vehicle. Seaman driving. Medication list reviewed and validated. --19:49 Tracey Le R.N. 19:06 12/13/16. BP: 138/71. HR: 59. RR: 20. O2 saturation: 98%. Temp: 98.9 F. Pain level now: 01/27. --19:49 Tracey Le R.N. Locked/Released at 12/13/2016 19:49 by Tracey Le R.N.
--- NOTE | 2016-12-13 19:25 | ED CLINICAL REPORT ---
Clinical Report - Physicians/Mid Levels [facility] [address] [place] [address] 12/13/2016 18:49 Patient: ALEX ALTAMIRANO Time Seen: 1906; upon arrival, initial patient contact, initial documentation, patient care assumed. Arrived- By private vehicle. Historian- patient. RETURN VISIT: recently seen in this ED by another ED physician. Seen now for a new unrelated complaint. HISTORY OF PRESENT ILLNESS Chief Complaint: Injury to ABDOMEN and RIGHT LOWER EXTREMITY (HIP). Location of injuries- right hip (R Groin). The injury occurred about 1 weeks ago. Occurred at home. Fell while walking; tripped (says he was sleep walking and fell). The patient complains of moderate pain. No blow to the head, neck pain, loss of consciousness or seizure. Not dazed. pt is well known to me and ER staff, pt was here earlier today for c/o anxiety, and left before dc papers and rx given pt did admit to taking his valium twice today. REVIEW OF SYSTEMS No numbness, weakness, chest pain, difficulty breathing or laceration. All systems otherwise negative, except as recorded above. PAST HISTORY See nurses notes. PROBLEMS: Insomnia [Active]. Carotid Artery Disease [Active]. Congestive Heart Failure [Active]. --19:10 Tracey Le R.N. Contusion. Gout. Morbid obesity. Chest Pain. Diabetes Mellitus. Headache. Renal Insufficiency. Arthritis. Nerve, pinched. Bipolar Disorder. Upper Extremity Pain. Back Injury. Sciatica. Heart Disease. Insomnia. Substance Abuse. Back Pain. UTI - Urinary Tract Infection. Depression. Nausea. Costochondritis. Tension-Type Headache. URI. Migraine Headache. Dental Abscess. Gastroenteritis. Hypercholesterolemia. Dental Pain. Manic bipolar I disorder. --19:10 Tracey Le R.N. ADDITIONAL SURGERIES: Angioplasty of blood vessel. Back Surgery. Coronary Artery Bypass Graft. --19:10 Tracey Le R.N. SOCIAL HISTORY Light tobacco smoker. Occasional alcohol use. History of occasional drug use: marijuana. No recent travel. Is a local resident. FAMILY HISTORY No significant family medical history. ADDITIONAL NOTES The nursing notes have been reviewed with agreement regarding the chief complaint, HPI, ROS, PMH and patient medications and allergies. PHYSICAL EXAM Vital Signs: 12/13/2016 19:06 BP: 138/71. HR: 59. RR: 20. O2 saturation: 98%. Temp: 98.9 F. Pain level now: 6/10. Have been reviewed as normal and appear to be correct. Appearance: Alert. Oriented X3. No acute distress. Head: Head non-tender. No swelling of head. Eyes: Pupils equal, round and reactive to light. EOM intact. ENT: No dental injury. Pharynx normal. Neck: Painless ROM. Non-tender. CVS: Heart sounds normal. Pulses normal. Respiratory: Breath sounds normal. Chest nontender. Abdomen: No visible injury. Soft and nontender. Moderately obese. Back: No tenderness. ROM normal. Skin: Skin intact. Skin warm and dry. Normal skin color. Normal skin turgor. Extremities: Normal inspection. Pelvis stable. Extremities atraumatic. No lower extremity edema. Neuro: Oriented X 3. No motor deficit. No sensory deficit. PROGRESS AND PROCEDURES Course of Care: pt has long ciara, frequent narcs, controlled substances, and #32 er visits, see report for full details. Patient counseled in person regarding the patient's stable condition and diagnosis. Differential Diagnosis: Other possible considerations: fall, fx, dislocation, strain, hernia. Above considerations are based on history and physical exam. Differential diagnosis was discussed with patient. Disposition: Discharged home in good and unchanged condition (19:24). Condition: good and stable. CLINICAL IMPRESSION Muscle strain of the right hip. Fall on same level by tripping. INSTRUCTIONS Warnings: GENERAL WARNINGS: Return or contact your physician immediately if your condition worsens or changes unexpectedly, if not improving as expected, or if other problems arise. SPECIFICALLY, return if you develop incontinence of urine (loss of bladder control). Follow-up: Follow up with your doctor in about one week as needed. Call for an appointment. Summary of care provided to patient. Understanding of the discharge instructions verbalized by patient. (Electronically signed by Phylicia Hassan A.R.N.P. 12/13/2016 21:19)
--- NOTE | 2016-12-13 21:20 | ED MAR SUMMARY ---
..... Medication Administration Record [facility] [address], [place] [id number] Patient: ALEX ALTAMIRANO Visit ID: [id number] 56y, M Weight: 136.0 kg Height/Length: 66 in BMI: 48.4 ALLERGIES: Latex
--- NOTE | 2016-12-13 21:20 | ED MED RECONCILIATION SUMMARY ---
Patient: ALEX ALTAMIRANO Medication Reconciliation Report [facility] VisitID: [id number] [address] [place] [address] 56y, M Registration Date/Time: 12/13/2016 Weight: 136.0 kg Height/Length: 66 in. BMI: 48.4 ALLERGIES: Latex The patient's Home Medications are listed below: THE FOLLOWING MEDICATIONS NEED TO BE RECONCILED: Allopurinol Oral 40mg , 2x a day AmLODIPine Besylate Oral, pt unsure of dose Aspirin Oral (81 mg), daily Atorvastatin Calcium Oral, daily, pt unsure of dose Carvedilol Phosphate ER Oral, pt unsure of dose Cyclobenzaprine HCl Oral Gabapentin Oral 300 mg, daily Ketorolac Tromethamine Oral Lasix Oral 40 mg, daily Latuda Oral, pt unsure of dose Lisinopril Oral 20 mg, daily MetFORMIN HCl Oral 500 mg, daily Plavix Oral 75 mg, daily Valium 5mg day, can take 2 The source(s) of the original Home Medication information: patient The following Medications were given to the patient in the Emergency Department: None. The following Medications were prescribed to the patient: None.
--- NOTE | 2016-12-13 21:20 | ED MAR SUMMARY ---
..... Medication Administration Record Located Within [facility] [address] [place], [place] [id number] Patient: ALEX ALTAMIRANO Visit ID: [id number] 56y, M Weight: 136.0 kg Height/Length: 66 in BMI: 48.4 ALLERGIES: Latex
--- NOTE | 2016-12-13 21:20 | ED DISCHARGE INSTRUCTIONS ---
Patient: ALEX ALTAMIRANO General Instructions Located Within [facility] VisitID: [id number] [place] [address] 56y, M Registration Date/Time: 12/13/2016 Muscle strain of the right hip. Fall on same level by tripping. INSTRUCTIONS Warnings: GENERAL WARNINGS: Return or contact your physician immediately if your condition worsens or changes unexpectedly, if not improving as expected, or if other problems arise. SPECIFICALLY, return if you develop incontinence of urine (loss of bladder control). Follow-up: Follow up with your doctor in about one week as needed. Call for an appointment. Summary of care provided to patient. Understanding of the discharge instructions verbalized by patient. ADDITIONAL INFORMATION Mechanical Fall You have had a fall today. It appears that the cause is mechanical. That means that you slipped, tripped or lost your balance. If your fall had been due to fainting or a seizure, further tests would be required. Home Care: Rest today and resume your normal activities when you are feeling back to normal. If you were injured during the fall, follow the advice from your doctor regarding care of your injury. You may use acetaminophen (Tylenol) or ibuprofen (Motrin, Advil) to control pain, unless another pain medicine was prescribed. [NOTE: If you have chronic liver or kidney disease or ever had a stomach ulcer or GI bleeding, talk with your doctor before using these medicines.] Fall Prevention: Was there anything that caused your fall that can be fixed, removed, or replaced? Make your home safe by keeping walkways clear of objects you may trip over. Use non-slip pads under rugs. Do not walk in poorly lit areas. Do not stand on chairs or wobbly ladders. Use caution when reaching overhead or looking upward. This position can cause a loss of balance. Be sure your shoes fit properly, have non-slip bottoms and are in good condition. Be cautious when going up and down curbs, and walking on uneven sidewalks. If your balance is poor, consider using a cane or walker. Stay as active as you can. Balance, flexibility, strength, and endurance all come from exercise. They all play a role in preventing falls. Follow Up with your doctor or as advised by our staff. Get Prompt Medical Attention if any of the following occur: Repeated mechanical falls, or unexplained falls Dizziness, fainting or seizure Severe headache Chest pain or shortness of breath Palpitations (very rapid or very slow or irregular heartbeat) Blood in vomit, stools (black or red color) Weakness of an arm or leg or one side of the face Difficulty with speech or vision Hip Strain You have a strain of the muscles around the hip joint. A muscle strain is a stretching or tearing of muscle fibers. This causes pain, especially with motion of that muscle. There may also be some swelling and bruising. Home Care: Stay off the injured leg as much as possible until you can walk on it without pain. If you have a lot of pain with walking, crutches or a walker may be prescribed. (These can be rented or purchased at many pharmacies and surgical or orthopedic supply stores). Follow your doctor's advice regarding when to begin bearing weight on that leg. Apply an ice pack (ice cubes in a plastic bag, wrapped in a towel) over the injured area for 20 minutes every 1-2 hours the first day. Continue with ice packs 3-4 times a day for the next two days, then as needed for the relief of pain and swelling. Unless otherwise instructed, on the fourth day you may begin hot soaks or hot packs (small towel soaked in hot water) 3-4 times a day while you gently exercise the involved area. You may use acetaminophen (Tylenol) or ibuprofen (Motrin, Advil) to control pain, unless another pain medicine was prescribed. [NOTE: If you have chronic liver or kidney disease or ever had a stomach ulcer or GI bleeding, talk with your doctor before using these medicines.] If you play sports, you may resume these activities when you are able to hop and run on the injured leg without pain. Follow Up with your doctor, or as advised by our staff, if your symptoms do not begin to improve after one week. Further tests may be needed. [NOTE: If X-rays were taken, they will be reviewed by a radiologist. You will be notified of any new findings that may affect your care.] Get Prompt Medical Attention if any of the following occur: Increased swelling or increased bruising Pain becomes worse Decreased ability to bear weight on the injured side You have been given the following additional information: Fall, Mechanical Hip Strain (Electronically signed by Phylicia Hassan A.R.N.P. 12/13/2016 21:19)
--- NOTE | 2016-12-13 21:20 | ED MED RECONCILIATION SUMMARY ---
Patient: ALEX ALTAMIRANO Medication Reconciliation Report [facility] VisitID: [id number] [address] [place] [address] 56y, M Registration Date/Time: 12/13/2016 Weight: 136.0 kg Height/Length: 66 in. BMI: 48.4 ALLERGIES: Latex The patient's Home Medications are listed below: THE FOLLOWING MEDICATIONS NEED TO BE RECONCILED: Allopurinol Oral 40mg , 2x a day AmLODIPine Besylate Oral, pt unsure of dose Aspirin Oral (81 mg), daily Atorvastatin Calcium Oral, daily, pt unsure of dose Carvedilol Phosphate ER Oral, pt unsure of dose Cyclobenzaprine HCl Oral Gabapentin Oral 300 mg, daily Ketorolac Tromethamine Oral Lasix Oral 40 mg, daily Latuda Oral, pt unsure of dose Lisinopril Oral 20 mg, daily MetFORMIN HCl Oral 500 mg, daily Plavix Oral 75 mg, daily Valium 5mg day, can take 2 The source(s) of the original Home Medication information: patient The following Medications were given to the patient in the Emergency Department: None. The following Medications were prescribed to the patient: None.
== END 2016-12-13 19:40 | disposition home or self-care (01) ==
LOC: ED SRH 18:49
DX: S76.011A Strain of muscle, fascia and tendon of right hip, initial encounter (principal); W01.0XXA Fall on same level from slipping, tripping and stumbling without subsequent striking against object, initial encounter; Y93.89 Activity, other specified; Y99.9 Unspecified external cause status; Y92.009 Unspecified place in unspecified non-institutional (private) residence as the place of occurrence of the external cause; E11.29 Type 2 diabetes mellitus with other diabetic kidney complication; I65.29 Occlusion and stenosis of unspecified carotid artery; I50.9 Heart failure, unspecified; Z79.84 Long term (current) use of oral hypoglycemic drugs; Z79.899 Other long term (current) drug therapy

== ENCOUNTER 2017-01-05 15:15 | Emergency (ER) | payer OTHER ==
--- NOTE | 2017-01-05 16:19 | DIAGNOSTIC IMAGING REPORT ---
PROCEDURE: XR CHEST 1 VIEW INDICATION: SHORTNESS OF BREATH TECHNIQUE: Portable AP view 03:41 p.m. COMPARISON: Chest 09/26/2016 FINDINGS: Lungs are clear. CABG. Heart size, mediastinum and pulmonary vessels are normal. Bony thorax is unremarkable. IMPRESSION: 1. No acute changes 2. CABG
--- NOTE | 2017-01-12 22:25 | ED MAR SUMMARY ---
..... Medication Administration Record [facility] [address] [place] [address] Patient: ALEX ALTAMIRANO Visit ID: [id number] 56y, M Weight: 127.0 kg Height/Length: 66 in BMI: 45.2 ALLERGIES: Latex Given 15:40 01/05/2017 Haley Yeager, Medication Administered: NITROGLYCERIN [SL], Dose: 0.4 mg SL. Medication Ordered: NitroGLYCERIN SL 0.4 mg (once now).
--- NOTE | 2017-01-12 22:25 | ED DISCHARGE INSTRUCTIONS ---
Patient: ALEX ALTAMIRANO General Instructions [facility] VisitID: [id number] [place] [address] 56y, M Registration Date/Time: 01/05/2017 Acute dyspnea Acute stable angina. ADDITIONAL INFORMATION Dyspnea (Shortness Of Breath) Shortness of Breath (also known as "Dyspnea") is the sense that you can't catch your breath or can't get enough air. Dyspnea can be caused by many different conditions such as: Acute asthma attack Worsening of emphysema (also called "COPD") -- a lung diseasethat is caused by smoking A mucus plug blocks a large air passage in the lung -- this can occur with emphysema or chronic bronchitis Congestive Heart Failure ("CHF") -- when a weak heart muscle allows excess fluid to collect inthe lungs Panic attacks, anxiety -- fear can cause rapid breathing ("hyperventilation") Pneumonia -- infection in the lung tissue Exposure to toxic fumes or smoke Pulmonary embolus (blood clot to the lung) Based on your visit today, the exact cause of your shortness of breath is not certain. Your tests do not show any of the serious causes of dyspnea. Sometimes, further testing is needed to find out if a serious problem exists. Therefore, it is important for you to watch for any new symptoms or worsening of your condition and follow up with your doctor as directed. Home Care: When your symptoms are better, resume your usual activities. If you smoke, you need to stop. Join a stop-smoking program or ask your doctor for help. Follow Up with your doctor or as advised by our staff. Get Prompt Medical Attention if any of the following occur: Increasing shortness of breath or wheezing Redness, pain or swelling in one leg Swelling in both legs or ankles Unexpected weight gain Chest, arm, shoulder, neck or upper back pain Dizziness, weakness or fainting Palpitations (the sense that your heart is fluttering, beating fast or hard) Fever of 100.4F (38C) or higher, or as directed by your healthcare provider Cough with dark colored or bloody sputum (mucus) You have been given the following additional information: Dyspnea (Electronically signed by Bill Lindsey Dr. 01/12/2017 22:25)
--- NOTE | 2017-01-12 22:25 | ED ORDER SUMMARY ---
..... Patient: ALEX ALTAMIRANO OrderSheet [facility] VisitID: [id number] [place] [address] 56y, M Registration Date/Time: 01/05/2017 ORDER SHEET Weight: 127.0 kg Allergies: Latex GENERAL ORDERS: Chest 1V Urgent (15:24 01/05/2017 Lucio Yu) (Ack 15:28 Damaris) Access Service Representative (Continuous) (SOB) (15:01/05/2017 Lucio Yu) (Ack 15:28 Damaris) (15:31 EBonham) CBC w Diff Urgent (15:01/05/2017 Lucio Yu) (Ack 15:28 Damaris) (15:31 EBonham) CMP Urgent (15:01/05/2017 Lucio Yu) (Ack 15:28 Damaris) (15:31 EBonham) UA-Culture if indicated Urgent (15:01/05/2017 Lucio Yu) (Ack 15:28 Damaris) (15:56 EBonham) PT with INR Urgent (15:01/05/2017 Lucio Yu) (Ack 15:28 Damaris) (15:31 EBonham) PTT Urgent (15:01/05/2017 Lucio Yu) (Ack 15:28 Damaris) (15:31 EBonham) D-Dimer Urgent (15:01/05/2017 Lucio Yu) (Ack 15:28 Damaris) (15:31 EBonham) Troponin-I Urgent (15:01/05/2017 Lucio Yu) (Ack 15:28 Damaris) (15:31 EBonham) BNP Urgent (15:01/05/2017 Lucio Yu) (Ack 15:28 Damaris) (15:31 EBonham) Pulse oximeter (15:01/05/2017 Lucio Yu) (Ack 15:28 Damaris) (15:31 EBonham) Troponin-I (redraw at 1720) Urgent (16:40 01/05/2017 Lucio Yu) ([facility] 16:[facility] MEDICATION ORDERS: NitroGLYCERIN SL 0.4 mg (once now) (15:24 01/05/2017 Lucio Yu) (15:57 Maris) IV FLUIDS: IV Saline Lock (15:01/05/2017 Lucio Yu) (15:57 Maris) ORDER SHEET NOTES: [Electronically signed by Haley Yeager (17:40 01/05/2017)] [Electronically signed by Bill Lindsey Dr. (22:25 01/12/2017)] [Electronically locked/signed by Haley Yeager (17:40 01/05/2017)]
--- NOTE | 2017-01-12 22:25 | ED ORDER SUMMARY ---
..... Patient: ALEX ALTAMIRANO OrderSheet [facility] VisitID: [id number] [place] [address] 56y, M Registration Date/Time: 01/05/2017 ORDER SHEET Weight: 127.0 kg Allergies: Latex GENERAL ORDERS: Chest 1V Urgent (15:24 01/05/2017 Lucio Yu) (Ack 15:28 Damaris) Insulation Worker (Continuous) (SOB) (15:01/05/2017 Lucio Yu) (Ack 15:28 Damaris) (15:31 EBonham) CBC w Diff Urgent (15:01/05/2017 Lucio Yu) (Ack 15:28 Damaris) (15:31 EBonham) CMP Urgent (15:01/05/2017 Lucio Yu) (Ack 15:28 Damaris) (15:31 EBonham) UA-Culture if indicated Urgent (15:01/05/2017 Lucio Yu) (Ack 15:28 Damaris) (15:56 EBonham) PT with INR Urgent (15:01/05/2017 Lucio Yu) (Ack 15:28 Damaris) (15:31 EBonham) PTT Urgent (15:01/05/2017 Lucio Yu) (Ack 15:28 Damaris) (15:31 EBonham) D-Dimer Urgent (15:01/05/2017 Lucio Yu) (Ack 15:28 Damaris) (15:31 EBonham) Troponin-I Urgent (15:01/05/2017 Lucio Yu) (Ack 15:28 Damaris) (15:31 EBonham) BNP Urgent (15:01/05/2017 Lucio Yu) (Ack 15:28 Damaris) (15:31 EBonham) Pulse oximeter (15:01/05/2017 Lucio Yu) (Ack 15:28 Damaris) (15:31 EBonham) Troponin-I (redraw at 1720) Urgent (16:40 01/05/2017 Lucio Yu) ([facility]ck 16:[facility] MEDICATION ORDERS: NitroGLYCERIN SL 0.4 mg (once now) (15:24 01/05/2017 Lucio Yu) (15:57 Maris) IV FLUIDS: IV Saline Lock (15:01/05/2017 Lucio Yu) (15:57 Maris) ORDER SHEET NOTES: [Electronically signed by Haley Yeager (17:40 01/05/2017)] [Electronically signed by Bill Lindsey Dr. (22:25 01/12/2017)] [Electronically locked/signed by Haley Yeager (17:40 01/05/2017)]
--- NOTE | 2017-01-12 22:25 | ED MED RECONCILIATION SUMMARY ---
Patient: ALEX ALTAMIRANO Medication Reconciliation Report [facility] VisitID: [id number] [address] [place] [address] 56y, M Registration Date/Time: 01/05/2017 Weight: 127.0 kg Height/Length: 66 in. BMI: 45.2 ALLERGIES: Latex The patient's Home Medications are listed below: THE FOLLOWING MEDICATIONS NEED TO BE RECONCILED: Allopurinol Oral 40mg , 2x a day AmLODIPine Besylate Oral, pt unsure of dose Aspirin Oral (81 mg), daily Atorvastatin Calcium Oral, daily, pt unsure of dose Carvedilol Phosphate ER Oral, pt unsure of dose Cyclobenzaprine HCl Oral Gabapentin Oral 300 mg, daily Ketorolac Tromethamine Oral Lasix Oral 40 mg, daily Latuda Oral, pt unsure of dose Lisinopril Oral 20 mg, daily MetFORMIN HCl Oral 500 mg, daily Plavix Oral 75 mg, daily The source(s) of the original Home Medication information: Not obtained. The following Medications were given to the patient in the Emergency Department: Nitroglycerin [SL] SL 0.4 mg, administered: 01/05/2017 3:40:00 PM The following Medications were prescribed to the patient: None.
--- NOTE | 2017-01-12 22:25 | ED CLINICAL REPORT ---
Clinical Report - Physicians/Mid Levels [facility] [address] [place] [address] 01/05/2017 15:15 Patient: ALEX ALTAMIRANO Time Seen: 1525. Arrived- By private vehicle. Historian- patient. HISTORY OF PRESENT ILLNESS Chief Complaint: DYSPNEA. This started today and is still present. It was abrupt in onset and has been constant but is not gone now. (non-exertional. does not know what makes it better or worse). The patient has had mild, pressure-like central chest pain associated with shortness of breath. No radiation or modifying factors. No calf pain or foot swelling. Similar symptoms previously: None. Recent medical care: Not recently seen/assessed. REVIEW OF SYSTEMS No nausea, vomiting, abdominal pain, headache or skin rash. All systems otherwise negative, except as recorded above. PAST HISTORY See nurses notes. Medications: AmLODIPine Besylate Oral (pt unsure of dose ). Aspirin Oral (Tablet 81 mg), daily. Atorvastatin Calcium Oral, daily (pt unsure of dose ). Carvedilol Phosphate ER Oral (pt unsure of dose ). Cyclobenzaprine HCl Oral. Gabapentin Oral 300 mg, daily. Ketorolac Tromethamine Oral. Lasix Oral 40 mg, daily. Latuda Oral (pt unsure of dose ). Lisinopril Oral 20 mg, daily. MetFORMIN HCl Oral 500 mg, daily. Plavix Oral 75 mg, daily. Allopurinol Oral 40mg , 2x a day. Allergies: Latex. Definite Moderate(rash). SOCIAL HISTORY Smoker- current status unknown. Alcohol use. History of occasional drug use: marijuana. No recent travel. Is a local resident. FAMILY HISTORY (No family history of early cardiac disease.). ADDITIONAL NOTES The nursing notes have been reviewed. PHYSICAL EXAM Vital Signs: 01/05/2017 15:25 BP: 152/77. HR: 72. RR: 28. O2 saturation: 98%. Blood pressure normal. Oxygen saturation normal. Appearance: Alert. No acute distress. Eyes: Pupils equal, round and reactive to light. Eyes normal inspection. ENT: Ears normal. Nose normal. Pharynx normal. Uvula midline. Neck: Normal inspection. No jugular venous distention. Neck supple. CVS: Normal heart rate and rhythm. Heart sounds normal. Pulses normal. Respiratory: No respiratory distress. Breath sounds normal. No wheezes, stridor, rales or rhonchi. Abdomen: Soft and nontender. No organomegaly. Skin: Skin warm and dry. Normal skin color. No rash. Normal skin turgor. Extremities: Extremities exhibit normal ROM. No lower extremity edema. Neuro: No motor deficit. No sensory deficit. LABS, X-RAYS, AND EKG EKG: No acute ischemia. Normal sinus rhythm. Rate: 88. Normal P waves. Normal LAKIA. Normal QRS complex. Normal axis. Normal ST and T waves, QT and QTc. occasional PVCs. otherwise normal sinus. The study has been interpreted contemporaneously by me. The study has been independently viewed by me. Artifact present. Chest X-ray: Normal Chest X-Ray. Laboratory Tests: UA-Culture if indicated: (SHWETA: 01/05/2017 15:53) ( [facility] 01/05/2017 16:10) Final results Test Result Flag Units (Reference) URINE COLOR YELLOW URINE APPEARANCE CLEAR URINE GLUCOSE NEGATIVE (NEGATIVE) URINE BILIRUBIN NEGATIVE (NEGATIVE) URINE KETONE NEGATIVE (NEGATIVE) URINE SPECIFIC GRAVITY <= 1.005 L (1.010-1.030) URINE PH 5.5 (5.0-8.0) URINE PROTEIN NEGATIVE (NEGATIVE) URINE UROBILINOGEN 0.2 EU/dL (0.2-1.0) URINE NITRITE NEGATIVE (NEGATIVE) URINE BLOOD NEGATIVE (NEGATIVE) URINE LEUK ESTERASE POSITIVE (NEGATIVE) URINE RBC NONE SEEN rbc/hpf (0-1) URINE WBC 0-1 wbc/hpf (0-1) URINE EPITHELIAL CELLS 0-1 EPI/hpf (0-5) URINE BACTERIA NONE SEEN (NONE SEEN) URINE COMMENT CULTURE INDICATED URINE CULTURES ARE SET-UP BASED ON THE FOLLOWING CRITERIA:POSITIVE NITRITEPOSITIVE LEUKOCYTE ESTERASEGREATER THAN 10 WHITE BLOOD CELLSMODERATE (2+) OR GREATER BACTERIA CBC w Diff: (SHWETA: 01/05/2017 15:14) ( [facility] 01/05/2017 15:41) Final results Test Result Flag Units (Reference) WHITE BLOOD COUNT 8.4 K/uL (4.5-11.5) RED BLOOD COUNT 4.12 L M/uL (4.50-5.90) HEMOGLOBIN 13.1 L gm/dL (13.5-17.5) HEMATOCRIT 38.9 L % (41.0-53.0) MEAN CELL VOLUME 94 fL (80-100) MEAN CORPUSCULAR HGB 32 pg (26-34) MEAN CORPUSCULAR HGB CONC 34 g/dL (31-37) RED CELL DISTRIBUTION WIDTH 14.3 % (11.6-14.8) PLATELET COUNT 260 K/uL (150-400) NEUTROPHIL % 60.2 % (50-75) LYMPH % 23.6 L % (25-40) MONO % 9.3 % (3-14) EOSINOPHIL % 6.6 H % (0-4) BASOPHIL % 0.3 % (0-2) PT with INR: (SHWETA: 01/05/2017 15:14) ( [facility] 01/05/2017 15:52) Final results Test Result Flag Units (Reference) INR 1.0 (0.8-1.2) Low Intensity Therapy: INR 1.5-2.0 PT range 18.5-23.1Mod.Intensity Therapy: INR 2.0-3.0 PT range 23.1-31.5High Intensity Therapy: INR 2.5-3.5 PT range 27.4-35.5High Intensity Therapy 2: INR 3.0-4.0 PT range 31.5-39.3 APTT 29 SECONDS (24-34) D-DIMER QUANTITATIVE 0.38 ug/mLFEU (0.27-0.52) The primary value of this quantitative assay relates toits negative predictive value (i.e. exclusion) of pulmonaryembolism/deep vein thrombosis/DIC.Elevated levels of d-dimer may also occur with:, age, cancer, inflammation, liver disease,post-op, infection, hematoma, coronary disease, peripheralarteriopathy, bleeding disorders and thrombolytic treatment.Results should be correlated with other clinical andradiological data.Testing Methodology: Latex Immunoassay BNP: (SHWETA: 01/05/2017 15:14) ( [facility] 01/05/[facility] 16:02) Final results Test Result Flag Units (Reference) B-TYPE NATRIURETIC PEPTIDE 55.3 pg/ml (5-100) CMP: (SHWETA: 01/05/2017 15:14) ( [facility] 01/05/2017 15:55) Final results Test Result Flag Units (Reference) GLUCOSE 117 H mg/dL (70-110) BUN 24 H mg/dL (7-18) CREATININE 1.7 H mg/dL (0.6-1.3) Estimated GFR 44.53 mL/min Estimated GFR- 53.97 mL/min Note: Persistent reduction over 3 months in eGFR<60 mL/min/1.73 m2 defines CKD. Patients with eGFR values>=60 mL/min/1.73 m2 may also have CKD if evidence ofpersistent proteinuria. Additional information may be foundat www.kidney.org. SODIUM 140 mmol/L (136-145) POTASSIUM 4.4 mmol/L (3.5-5.1) CHLORIDE 103 mmol/L (98-107) CARBON DIOXIDE 22 mmol/L (21-32) CALCIUM 9.2 mg/dL (8.5-10.1) TOTAL PROTEIN 7.7 g/dL (6.4-8.2) ALBUMIN 3.5 g/dL (3.3-5.0) BILIRUBIN, TOTAL 0.4 mg/dL (0.0-1.0) ALKALINE PHOSPHATASE 75 U/L (46-116) AST (SGOT) 49 H U/L (15-37) ALT (SGPT) 50 U/L (12-78) TROPONIN I 0.06 ng/mL (0.00-1.5) TROPONIN REFERENCE RANGE:<0.1 NEGATIVE0.1-1.5 INDETERMINANT>1.5 POSITIVE Culture, Urine: (SHWETA: 01/05/2017 15:53) ( [facility] 01/07/2017 10:10) Final results Test Result Flag Units (Reference) CULTURE, URINE DATE: 01/07/17 NO SIGNIFICANT ISOLATION: NO SIGNIFICANT ISOLATION PRELIM REPORT: FINAL REPORT . PROGRESS AND PROCEDURES Course of Care: he patient is a pleasant 56-year-old male presenting for evaluation of shortness of breath and chest pain. At this time differential diagnosis includes a pulmonary embolism, pneumonia, acute myocardial infarction. Patient is noted to be hypertensive in the emergency department. Nitroglycerin has been ordered. Patient appears nontoxic. Patient is agreeable to the treatment and plan. Had discussion with the patient in regards to his management here in the emergency department and need for a delta troponin and his approximate stated to be about 3-4 hours. Patient will be evaluated the d-dimer. Patient is a patient in the and of low risk that a negative d-dimer would like the patient at low risk for pulmonary embolism. Patient's workup was remarkable for the findings above. Troponin is noted to be negative. Symptoms had significantly improved while here in the emergency department. Because the patient's negative d-dimer, do not feel patient has a pulmonary embolism or thoracic aortic dissection. Initial troponin is noted to be negative at 0.06. Second troponin has been ordered. Prior to patient's drying of the second troponin, was informed by nursing staff that he had left. Patient had not informed anybody that he was going to leave. Unclear why the patient had left. Patient also did not have his IV removed. we contacted the police department to have the IV removed as to avoid competitions from a IV left in place. Later agreeable to confirm that police had been able to contact the patient and verified that the IV had been removed. CLINICAL IMPRESSION Acute dyspnea Acute stable angina. (Electronically signed by Bill Lindsey Dr. 01/12/2017 22:25)
--- NOTE | 2017-01-12 22:25 | ED NURSING NOTES ---
Clinical Report - Nurses [facility] [address] [place] [address] 01/05/2017 15:15 Patient: ALEX ALTAMIRANO TRIAGE Triage time 1520. Acuity: LEVEL 3. Chief Complaint: SHORTNESS OF BREATH and DIFFICULTY BREATHING and (nervousness). Alert. --15:29 Haley Yeager 15:25 01/05/17. BP: 152/77. HR: 72. RR: 28. O2 saturation: 98%. Pain level now 0/10. --15:29 Haley Yeager. Weight: 127 kg. Height/Length: 66 inches. BMI: 45.2. --15:24 Haley Yeager. Medications Allopurinol Oral 40mg , 2x a day. --15:26 Haley Yeager AmLODIPine Besylate Oral (pt unsure of dose ). Aspirin Oral (Tablet 81 mg), daily. Atorvastatin Calcium Oral, daily (pt unsure of dose ). Carvedilol Phosphate ER Oral (pt unsure of dose ). Cyclobenzaprine HCl Oral. Gabapentin Oral 300 mg, daily. Ketorolac Tromethamine Oral. Lasix Oral 40 mg, daily. Latuda Oral (pt unsure of dose ). Lisinopril Oral 20 mg, daily. MetFORMIN HCl Oral 500 mg, daily. Plavix Oral 75 mg, daily. --15:26 Haley Yeager. Allergies Latex. Definite Moderate(rash) --15:26 Haley Yeager. History Arrived by private vehicle. Historian: patient. This started just prior to arrival. Treatment HAT COPYIST: None. SOCIAL HX: Current every day heavy tobacco smoker, start date 1996 (cigarette)- 1 pack per day. Occasional alcohol use. History of drug use: marijuana. --15:29 Haley Yeager. PROBLEMS: Insomnia [Active]. Carotid Artery Disease [Active]. Congestive Heart Failure [Active]. --15:27 Haley Yeager Myofascial Strain. Fall. Contusion. Gout. Morbid obesity. Diabetes Mellitus. Headache. Renal Insufficiency. Arthritis. Nerve, pinched. Bipolar Disorder. Upper Extremity Pain. Back Injury. Sciatica. Heart Disease. Substance Abuse. UTI - Urinary Tract Infection. Depression. Costochondritis. URI. Migraine Headache. Dental Abscess. Gastroenteritis. Hypercholesterolemia. Dental Pain. Hypertension. --15:27 Haley Yeager. ADDITIONAL SURGERIES: Angioplasty of blood vessel. Back Surgery. Coronary Artery Bypass Graft. --15:27 Haley Yeager. Interventions ID band on patient. To treatment room. --15:29 Haley Yeager. PHYSICAL ASSESSMENT To room via wheelchair. Patient gowned. GENERAL / NEURO / PSYCH: Alert. Oriented X 4. Appears anxious and in distress. RESPIRATORY: Mild respiratory distress. The patient can speak in full sentences. Chest nontender. Decreased breath sounds. CVS: Normal sinus rhythm noted. Capillary refill is greater than 2 seconds. GI / : Abdomen soft and nontender. Bowel sounds within normal limits. SKIN: Skin is warm and dry. --15:30 Haley Yeager. NURSING PROGRESS NOTES Monitoring of patient in place. Reassurance given. Call light placed in reach. Bed placed in lowest position. Brakes of bed on. Patient ready for evaluation- chart flagged. --15:30 Haley Yeager EKG time: (1528). EKG was ordered, performed by a tech and shown to the ED physician. --15:34 Berkley Pickett 15:55 01/05/17. BP: 113/65. HR: 92. RR: 28. O2 saturation: 98%. --15:55 Haley Yeager Reassessment after medication administered. He has had no adverse reaction. Overall patient status is the same- he states feels the same. ( Pt self ambulated to bathroom, no issues, he std this did not make his breathing worse, urine sent to lab). --15:55 Haley Yeager 15:25 01/05/2017 Site #1 started via IV in the right hand with an 20g angiocath, with aseptic technique and good blood return; one attempt. Blood drawn: rainbow set. Labeled in the presence of the patient and sent to the lab. Saline lock flushed with 10 mL saline. --15:57 Haley Yeager 15:40 01/05/2017 Nitroglycerin SL 0.4 mg given. Allergies verified and confirmed 5 rights. --15:57 Haley Yeager ( Pt gown noted to be on bed, pt not in room, not in WR or bathroom, assumed pt left, no evidence pt pulled out IV, police notified pt left with IV in). --17:39 Haley Yeager. DISPOSITION / DISCHARGE The patient left the Emergency Department without completion of treatment; patient was unaccompanied. Gown found on bed. Unable to locate patient. Notified the ED physician and charge nurse of patient departure. The patient left the Emergency Department ambulatory. The patient eloped. --17:39 Haley Yeager. Locked/Released at 01/05/2017 17:40 by Haley Yeager,
--- NOTE | 2017-01-12 22:25 | ED DISCHARGE INSTRUCTIONS ---
Patient: ALEX ALTAMIRANO General Instructions [facility] VisitID: [id number] [place] [address] 56y, M Registration Date/Time: 01/05/2017 Acute dyspnea Acute stable angina. ADDITIONAL INFORMATION Dyspnea (Shortness Of Breath) Shortness of Breath (also known as "Dyspnea") is the sense that you can't catch your breath or can't get enough air. Dyspnea can be caused by many different conditions such as: Acute asthma attack Worsening of emphysema (also called "COPD") -- a lung diseasethat is caused by smoking A mucus plug blocks a large air passage in the lung -- this can occur with emphysema or chronic bronchitis Congestive Heart Failure ("CHF") -- when a weak heart muscle allows excess fluid to collect inthe lungs Panic attacks, anxiety -- fear can cause rapid breathing ("hyperventilation") Pneumonia -- infection in the lung tissue Exposure to toxic fumes or smoke Pulmonary embolus (blood clot to the lung) Based on your visit today, the exact cause of your shortness of breath is not certain. Your tests do not show any of the serious causes of dyspnea. Sometimes, further testing is needed to find out if a serious problem exists. Therefore, it is important for you to watch for any new symptoms or worsening of your condition and follow up with your doctor as directed. Home Care: When your symptoms are better, resume your usual activities. If you smoke, you need to stop. Join a stop-smoking program or ask your doctor for help. Follow Up with your doctor or as advised by our staff. Get Prompt Medical Attention if any of the following occur: Increasing shortness of breath or wheezing Redness, pain or swelling in one leg Swelling in both legs or ankles Unexpected weight gain Chest, arm, shoulder, neck or upper back pain Dizziness, weakness or fainting Palpitations (the sense that your heart is fluttering, beating fast or hard) Fever of 100.4F (38C) or higher, or as directed by your healthcare provider Cough with dark colored or bloody sputum (mucus) You have been given the following additional information: Dyspnea (Electronically signed by Bill Lindsey Dr. 01/12/2017 22:25)
--- NOTE | 2017-01-12 22:25 | ED MAR SUMMARY ---
..... Medication Administration Record [facility] [address] [place] [address] Patient: ALEX ALTAMIRANO Visit ID: [id number] 56y, M Weight: 127.0 kg Height/Length: 66 in BMI: 45.2 ALLERGIES: Latex Given 15:40 01/05/2017 Haley Yeager, Medication Administered: NITROGLYCERIN [SL], Dose: 0.4 mg SL. Medication Ordered: NitroGLYCERIN SL 0.4 mg (once now).
--- NOTE | 2017-01-12 22:25 | ED MED RECONCILIATION SUMMARY ---
Patient: ALEX ALTAMIRANO Medication Reconciliation Report [facility] VisitID: [id number] [address] [place] [address] 56y, M Registration Date/Time: 01/05/2017 Weight: 127.0 kg Height/Length: 66 in. BMI: 45.2 ALLERGIES: Latex The patient's Home Medications are listed below: THE FOLLOWING MEDICATIONS NEED TO BE RECONCILED: Allopurinol Oral 40mg , 2x a day AmLODIPine Besylate Oral, pt unsure of dose Aspirin Oral (81 mg), daily Atorvastatin Calcium Oral, daily, pt unsure of dose Carvedilol Phosphate ER Oral, pt unsure of dose Cyclobenzaprine HCl Oral Gabapentin Oral 300 mg, daily Ketorolac Tromethamine Oral Lasix Oral 40 mg, daily Latuda Oral, pt unsure of dose Lisinopril Oral 20 mg, daily MetFORMIN HCl Oral 500 mg, daily Plavix Oral 75 mg, daily The source(s) of the original Home Medication information: Not obtained. The following Medications were given to the patient in the Emergency Department: Nitroglycerin [SL] SL 0.4 mg, administered: 01/05/2017 3:40:00 PM The following Medications were prescribed to the patient: None.
== END 2017-01-05 17:15 | disposition left against medical advice (07) ==
LOC: ED SRH 15:15
DX: R06.00 Dyspnea, unspecified (principal); I20.8 Other forms of angina pectoris; Z95.1 Presence of aortocoronary bypass graft; E11.9 Type 2 diabetes mellitus without complications; I11.0 Hypertensive heart disease with heart failure; Z79.84 Long term (current) use of oral hypoglycemic drugs; Z79.82 Long term (current) use of aspirin; Z79.899 Other long term (current) drug therapy; Z91.040 Latex allergy status
CPT/HCPCS: 90004; 90100; 90469; 90616; 91320; 91556; 94001; 94060; 95059

== ENCOUNTER 2017-02-02 17:02 | Emergency (ER) | payer OTHER ==
--- NOTE | 2017-02-02 18:09 | ED NURSING NOTES ---
Clinical Report - Nurses [facility] [address] [place] [address] 02/02/2017 17:01 Patient: ALEX ALTAMIRANO TRIAGE Triage time 17:Feb 02 2017. Acuity: LEVEL 3. Chief Complaint: (chest tightness). 17:16 02/02/17. Alert. No acute distress. ( Pt insists on bathroom prior to triage.). SEPSIS SCREEN: Sepsis Screen. Negative (no infection suspected/documented). KELLEY COMA SCORE: Cecil Coma Scale: 15- eyes open spontaneously (4); best verbal response- oriented x 4 (5); best motor response- obeys commands (6). --17:16 Yajaira Holden 17:16 02/02/17. BP: 110/65. HR: 89. RR: 14. O2 saturation: 97%. Temp: 97.7 F. Pain level now 7/10. --17:16 Yajaira Holden. Weight: 127.9 kg stated. Height/Length: 66 inches Per Patient. BMI: 45.5. --17:15 Yajaira Holden. Medications Allopurinol Oral 40mg , 2x a day. --17:09 Yajaira Holden AmLODIPine Besylate Oral (pt unsure of dose ). Aspirin Oral (Tablet 81 mg), daily. Atorvastatin Calcium Oral, daily (pt unsure of dose ). Carvedilol Phosphate ER Oral (pt unsure of dose ). Cyclobenzaprine HCl Oral. Gabapentin Oral 300 mg, daily. Ketorolac Tromethamine Oral. Lasix Oral 40 mg, daily. Latuda Oral (pt unsure of dose ). Lisinopril Oral 20 mg, daily. MetFORMIN HCl Oral 500 mg, daily. Plavix Oral 75 mg, daily. --17:09 Yajaira Holden. Medication/allergy information source: the patient. --17:16 Yajaira Holden. Allergies Latex. Definite Moderate(rash) --17:08 Yajaira Holden. History Arrived by private vehicle. Historian: patient. Unaccompanied (pt states he will get ride home). Primary physician ([facility]). This started today. ( [facility] called to report that they were sending patient over. Pt c/o chest tightness and does have some EKG changes that they will fax over. Pt reports that he has anxiety attacks and had one today for about an hour. Pt reports valium that he took prior to arrival is helping. Pt reports he was watching tv when it started. Pt reports stiff neck as only current complaint. Did have chest tightness that went away.). He has had difficulty breathing. Reports experiencing sweating episodes. No nausea or vomiting. 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 PAST MEDICAL HX: Immunizations: up-to-date. SOCIAL HX: Heavy tobacco smoker (cigarette)- 1 pack per day. No alcohol use or drug use. FALL RISK ASSESSMENT: Fall risk assessment completed. No fall risk identified. NUTRITIONAL RISK ASSESSMENT: The nutritional risk assessment revealed no deficiencies. FUNCTIONAL ASSESSMENT: Functional assessment: no impairments noted. LEARNING NEEDS ASSESSMENT: The learning needs assessment revealed no barriers. SKIN INTEGRITY ASSESSMENT: Skin integrity risk assessment completed. No skin integrity risk identified. --17:16 Yajaira Holden. PROBLEMS: Insomnia [Active]. Carotid Artery Disease [Active]. Congestive Heart Failure [Active]. --17:09 Yajaira Holden Dyspnea. Myofascial Strain. Fall. Contusion. Gout. Morbid obesity. Chest Pain. Diabetes Mellitus. Headache. Renal Insufficiency. Arthritis. Nerve, pinched. Bipolar Disorder. Upper Extremity Pain. Back Injury. Sciatica. Heart Disease. Insomnia. Substance Abuse. Back Pain. UTI - Urinary Tract Infection. Depression. Nausea. Costochondritis. Tension-Type Headache. URI. Migraine Headache. Dental Abscess. Gastroenteritis. Hypercholesterolemia. Dental Pain. Hypertension. Manic bipolar I disorder. --17:09 Yajaira Holden. ADDITIONAL SURGERIES: Angioplasty of blood vessel. Back Surgery. Coronary Artery Bypass Graft. --17:09 Yajaira Holden. Assessment The patient states feels the same. --17:16 Yajaira Holden. Interventions ID band on patient. --17:16 Yajaira Holden. PHYSICAL ASSESSMENT 17:16 02/02/17. Ambulatory to room. Patient gowned. GENERAL / NEURO / PSYCH: Alert. Oriented X 4. Appears in no acute distress. HEENT: Mucous membranes are pink. RESPIRATORY: Respirations not labored. Chest nontender. CVS: Heart sounds within normal limits. Pulses within normal limits. Capillary refill less than 2 seconds. GI / : Abdomen soft and nontender. EXTREMITIES: No lower extremity edema. SKIN: Skin is warm and dry. Normal skin turgor. Skin is non-tender. --17:16 Yajaira Holden. NURSING PROGRESS NOTES 17:17 02/02/17. The plan of care for this patient has been created. Pulse oximeter and NIBP monitor placed on patient; monitor alarms on. Patient gowned. Head of bed elevated. Reassurance given. Two patient identifiers checked. Call light placed in reach. Side rails up x 1. Bed placed in lowest position. Brakes of bed on. Patient ready for evaluation- chart flagged and ED physician and END USER CONSULTANT notified. --17:17 Yajaira Holden EKG time: (5). EKG was ordered, performed by a nurse and shown to the END USER CONSULTANT. --17:29 Yajaira Holden. DISPOSITION / DISCHARGE 18:17 02/02/17. Departure time: 18:Feb 02 2017. Condition at departure: improved. The goals identified in the patient's plan of care were met. No learning barriers present. Discharge instructions provided and reviewed with the patient. Reviewed warnings (Patient verbalized awareness of warning s/sx listed in dc paperwork.). Treatments reviewed. Reviewed referral to a primary care physician for followup. Patient verbalized understanding. Written instructions provided in Kenyan. The patient was discharged by the nurse practitioner. He was discharged home and accompanied by pt states he will get ride home. He left the Emergency Department ambulatory and via private vehicle. 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 FALL RISK ASSESSMENT: Fall risk assessment completed. No fall risk identified. --18:17 Yajaira Holden 18:16 02/02/17. BP: 105/65. HR: 85. RR: 15. O2 saturation: 97%. Temp: 98.2 F. Pain level now: 0/10. --18:17 Yajaira Holden. Locked/Released at 02/02/2017 22:54 by Yajaira Holden,
--- NOTE | 2017-02-02 18:09 | ED ORDER SUMMARY ---
..... Patient: ALEX ALTAMIRANO OrderSheet [facility] VisitID: [id number] [address] [place] [address] 56y, M Registration Date/Time: 02/02/2017 ORDER SHEET Weight: 127.9 kg (stated) Allergies: Latex GENERAL ORDERS: EKG - ER Stat (17:15 02/02/2017 BENEDICTivens A.R.N.P.) (17:21 [facility]) MEDICATION ORDERS: IV FLUIDS: ORDER SHEET NOTES: [Electronically signed by Phylicia Hassan A.R.N.P. (19:14 02/02/2017)] [Electronically signed by Yajaira Holden (22:54 02/02/2017)] [Electronically locked/signed by Yajaira Holden (22:54 02/02/2017)]
--- NOTE | 2017-02-02 18:09 | ED ORDER SUMMARY ---
..... Patient: ALEX ALTAMIRANO OrderSheet [facility] VisitID: [id number] [address] [place] [address] 56y, M Registration Date/Time: 02/02/2017 ORDER SHEET Weight: 127.9 kg (stated) Allergies: Latex GENERAL ORDERS: EKG - ER Stat (17:15 02/02/2017 BENEDICTivens A.R.N.P.) (17:21 [facility]) MEDICATION ORDERS: IV FLUIDS: ORDER SHEET NOTES: [Electronically signed by Phylicia Hassan A.R.N.P. (19:14 02/02/2017)] [Electronically signed by Yajaira Holden (22:54 02/02/2017)] [Electronically locked/signed by Yajaira Holden (22:54 02/02/2017)]
--- NOTE | 2017-02-02 18:09 | ED NURSING NOTES ---
Clinical Report - Nurses [facility] [address] [place] [address] 02/02/2017 17:01 Patient: ALEX ALTAMIRANO TRIAGE Triage time 17:Feb 02 2017. Acuity: LEVEL 3. Chief Complaint: (chest tightness). 17:16 02/02/17. Alert. No acute distress. ( Pt insists on bathroom prior to triage.). SEPSIS SCREEN: Sepsis Screen. Negative (no infection suspected/documented). KELLEY COMA SCORE: [place] Coma Scale: 15- eyes open spontaneously (4); best verbal response- oriented x 4 (5); best motor response- obeys commands (6). --17:16 Yajaira Holden 17:16 02/02/17. BP: 110/65. HR: 89. RR: 14. O2 saturation: 97%. Temp: 97.7 F. Pain level now 7/10. --17:16 Yajaira Holden. Weight: 127.9 kg stated. Height/Length: 66 inches Per Patient. BMI: 45.5. --17:15 Yajaira Holden. Medications Allopurinol Oral 40mg , 2x a day. --17:09 Yajaira Holden AmLODIPine Besylate Oral (pt unsure of dose ). Aspirin Oral (Tablet 81 mg), daily. Atorvastatin Calcium Oral, daily (pt unsure of dose ). Carvedilol Phosphate ER Oral (pt unsure of dose ). Cyclobenzaprine HCl Oral. Gabapentin Oral 300 mg, daily. Ketorolac Tromethamine Oral. Lasix Oral 40 mg, daily. Latuda Oral (pt unsure of dose ). Lisinopril Oral 20 mg, daily. MetFORMIN HCl Oral 500 mg, daily. Plavix Oral 75 mg, daily. --17:09 Yajaira Holden. Medication/allergy information source: the patient. --17:16 Yajaira Holden. Allergies Latex. Definite Moderate(rash) --17:08 Yajaira Holden. History Arrived by private vehicle. Historian: patient. Unaccompanied (pt states he will get ride home). Primary physician ([facility]). This started today. ( [facility] called to report that they were sending patient over. Pt c/o chest tightness and does have some EKG changes that they will fax over. Pt reports that he has anxiety attacks and had one today for about an hour. Pt reports valium that he took prior to arrival is helping. Pt reports he was watching tv when it started. Pt reports stiff neck as only current complaint. Did have chest tightness that went away.). He has had difficulty breathing. Reports experiencing sweating episodes. No nausea or vomiting. 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 PAST MEDICAL HX: Immunizations: up-to-date. SOCIAL HX: Heavy tobacco smoker (cigarette)- 1 pack per day. No alcohol use or drug use. FALL RISK ASSESSMENT: Fall risk assessment completed. No fall risk identified. NUTRITIONAL RISK ASSESSMENT: The nutritional risk assessment revealed no deficiencies. FUNCTIONAL ASSESSMENT: Functional assessment: no impairments noted. LEARNING NEEDS ASSESSMENT: The learning needs assessment revealed no barriers. SKIN INTEGRITY ASSESSMENT: Skin integrity risk assessment completed. No skin integrity risk identified. --17:16 Yajaira Holden. PROBLEMS: Insomnia [Active]. Carotid Artery Disease [Active]. Congestive Heart Failure [Active]. --17:09 Yajaira Holden Dyspnea. Myofascial Strain. Fall. Contusion. Gout. Morbid obesity. Chest Pain. Diabetes Mellitus. Headache. Renal Insufficiency. Arthritis. Nerve, pinched. Bipolar Disorder. Upper Extremity Pain. Back Injury. Sciatica. Heart Disease. Insomnia. Substance Abuse. Back Pain. UTI - Urinary Tract Infection. Depression. Nausea. Costochondritis. Tension-Type Headache. URI. Migraine Headache. Dental Abscess. Gastroenteritis. Hypercholesterolemia. Dental Pain. Hypertension. Manic bipolar I disorder. --17:09 Yajaira Holden. ADDITIONAL SURGERIES: Angioplasty of blood vessel. Back Surgery. Coronary Artery Bypass Graft. --17:09 Yajaira Holden. Assessment The patient states feels the same. --17:16 Yajaira Holden. Interventions ID band on patient. --17:16 Yajaira Holden. PHYSICAL ASSESSMENT 17:16 02/02/17. Ambulatory to room. Patient gowned. GENERAL / NEURO / PSYCH: Alert. Oriented X 4. Appears in no acute distress. HEENT: Mucous membranes are pink. RESPIRATORY: Respirations not labored. Chest nontender. CVS: Heart sounds within normal limits. Pulses within normal limits. Capillary refill less than 2 seconds. GI / : Abdomen soft and nontender. EXTREMITIES: No lower extremity edema. SKIN: Skin is warm and dry. Normal skin turgor. Skin is non-tender. --17:16 Yajaira Holden. NURSING PROGRESS NOTES 17:17 02/02/17. The plan of care for this patient has been created. Pulse oximeter and NIBP monitor placed on patient; monitor alarms on. Patient gowned. Head of bed elevated. Reassurance given. Two patient identifiers checked. Call light placed in reach. Side rails up x 1. Bed placed in lowest position. Brakes of bed on. Patient ready for evaluation- chart flagged and ED physician and FURNITURE FINISHER notified. --17:17 Yajaira Holden EKG time: (5). EKG was ordered, performed by a nurse and shown to the FURNITURE FINISHER. --17:29 Yajaira Holden. DISPOSITION / DISCHARGE 18:17 02/02/17. Departure time: 18:Feb 02 2017. Condition at departure: improved. The goals identified in the patient's plan of care were met. No learning barriers present. Discharge instructions provided and reviewed with the patient. Reviewed warnings (Patient verbalized awareness of warning s/sx listed in dc paperwork.). Treatments reviewed. Reviewed referral to a primary care physician for followup. Patient verbalized understanding. Written instructions provided in Zimbabwean. The patient was discharged by the nurse practitioner. He was discharged home and accompanied by pt states he will get ride home. He left the Emergency Department ambulatory and via private vehicle. Museum Docent driving. FALL RISK ASSESSMENT: Fall risk assessment completed. No fall risk identified. --18:17 Yajaira Holden 18:16 02/02/17. BP: 105/65. HR: 85. RR: 15. O2 saturation: 97%. Temp: 98.2 F. Pain level now: 0/10. --18:17 Yajaira Holden. Locked/Released at 02/02/2017 22:54 by Yajaira Holden,
--- NOTE | 2017-02-02 18:09 | ED CLINICAL REPORT ---
Clinical Report - Physicians/Mid Levels [facility] [address] [place] [address] 02/02/2017 17:01 Patient: ALEX ALTAMIRANO Time Seen: 1707; upon arrival, initial patient contact, initial documentation, patient care assumed. Arrived- By private vehicle. Historian- patient. HISTORY OF PRESENT ILLNESS Chief Complaint: ( anxiety). At its maximum, severity described as severe. When seen in the E.D., it was gone. Modifying factors- (relieved by meds). Not worsened by anything. Is now gone. No current or associated symptoms. (pt took his valium and hydroxyzine approx at 1530, and feels it has kicked and feels much better, says he was watching tv when anxiety came on, started to panic, it was hard to breathe and he had some chest discomfort, took his meds and came to clinic pt is well known to me and er staff). Similar symptoms previously: Chronically, as bad. Recent medical care: The patient was seen recently in a clinic. 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 REVIEW OF SYSTEMS No fever, abdominal pain, vomiting or diarrhea. He has had difficulty breathing and chest pain. All systems otherwise negative, except as recorded above. PAST HISTORY See nurses notes. PROBLEMS: Insomnia [Active]. Carotid Artery Disease [Active]. Congestive Heart Failure [Active]. --17: Yajaira Holden Dyspnea. Myofascial Strain. Fall. Contusion. Gout. Morbid obesity. Chest Pain. Diabetes Mellitus. Headache. Renal Insufficiency. Arthritis. Nerve, pinched. Bipolar Disorder. Upper Extremity Pain. Back Injury. Sciatica. Heart Disease. Insomnia. Substance Abuse. Back Pain. UTI - Urinary Tract Infection. Depression. Nausea. Costochondritis. Tension-Type Headache. URI. Migraine Headache. Dental Abscess. Gastroenteritis. Hypercholesterolemia. Dental Pain. Hypertension. Manic bipolar I disorder. --17: Yajaira Holden. ADDITIONAL SURGERIES: Angioplasty of blood vessel. Back Surgery. Coronary Artery Bypass Graft. --17: Yajaira Holden. SOCIAL HISTORY Light tobacco smoker. Occasional alcohol use. History of occasional drug use: marijuana. No recent travel. Is a local resident. FAMILY HISTORY Negative. ADDITIONAL NOTES The nursing notes have been reviewed with agreement regarding the chief complaint, HPI, ROS, PMH and patient medications and allergies. PHYSICAL EXAM Vital Signs: 02/02/2017 17:16 BP: 110/65. HR: 89. RR: 14. O2 saturation: 97%. Temp: 97.7 F. Have been reviewed as normal and appear to be correct. Appearance: Alert. No acute distress. (pt very relaxed, appears sedated compared to his normal affect). Eyes: Pupils equal, round and reactive to light. Eyes normal inspection. Neck: Normal inspection. Neck supple. CVS: Normal heart rate and rhythm. Heart sounds normal. Pulses normal. Respiratory: No respiratory distress. Breath sounds normal. Chest nontender. Abdomen: No visible injury. Soft and nontender. Moderately obese. Back: Normal inspection. Skin: Skin warm and dry. Normal skin color. No rash. Normal skin turgor. Extremities: Extremities exhibit normal ROM. No lower extremity edema. Neuro: Oriented X 3. No motor deficit. No sensory deficit. LABS, X-RAYS, AND EKG EKG: EKG time: (1725). No acute process. No acute ischemia. Normal EKG. Rate: 86. Normal EKG. EKG unchanged when compared with prior EKG. (October 19 2016). The study has been interpreted contemporaneously by me (and Dr Gonzalez). The EKG appears to be a good tracing. Interpretation time: 1727. PROGRESS AND PROCEDURES Course of Care: pt has ciara for narcs, #35 er visits, and recommendations for no narcs or controlled substances to be given in er, see report for full details chart from clinic reviewed, including the ekg. Patient counseled in person regarding the patient's stable condition, test results and diagnosis. 17:36. Differential Diagnosis: Other possible considerations: substance abuse, chronic pain issues, spinal abscess, mi, angina, pe, anxiety. Above considerations are based on history, physical exam, reassessment and EKG. Differential diagnosis was discussed with patient. Disposition: Discharged home in good and improved condition (18:09). Condition: good and stable. CLINICAL IMPRESSION Normal exam upon presentation, while in the ED and at discharge. Anxiety reaction. No hyperventilation. INSTRUCTIONS Warnings: GENERAL WARNINGS: Return or contact your physician immediately if your condition worsens or changes unexpectedly, if not improving as expected, or if other problems arise. Specifically return if problem worsens. Follow-up: Follow up with your doctor in about three days as needed. Call for an appointment. Summary of care provided to patient. Understanding of the discharge instructions verbalized by patient. (Electronically signed by Phylicia Hassan A.R.N.P. 02/02/2017 19:15)
--- NOTE | 2017-02-02 22:55 | ED MED RECONCILIATION SUMMARY ---
Patient: ALEX ALTAMIRANO Medication Reconciliation Report [facility] VisitID: [id number] [address] [place] [address] 56y, M Registration Date/Time: 02/02/2017 Weight: 127.9 kg Height/Length: 66 in. BMI: 45.5 ALLERGIES: Latex The patient's Home Medications are listed below: THE FOLLOWING MEDICATIONS NEED TO BE RECONCILED: Allopurinol Oral 40mg , 2x a day AmLODIPine Besylate Oral, pt unsure of dose Aspirin Oral (81 mg), daily Atorvastatin Calcium Oral, daily, pt unsure of dose Carvedilol Phosphate ER Oral, pt unsure of dose Cyclobenzaprine HCl Oral Gabapentin Oral 300 mg, daily Ketorolac Tromethamine Oral Lasix Oral 40 mg, daily Latuda Oral, pt unsure of dose Lisinopril Oral 20 mg, daily MetFORMIN HCl Oral 500 mg, daily Plavix Oral 75 mg, daily The source(s) of the original Home Medication information: patient The following Medications were given to the patient in the Emergency Department: None. The following Medications were prescribed to the patient: None.
--- NOTE | 2017-02-02 22:55 | ED MED RECONCILIATION SUMMARY ---
Patient: ALEX ALTAMIRANO Medication Reconciliation Report [facility] VisitID: [id number] [address] [place] [address] 56y, M Registration Date/Time: 02/02/2017 Weight: 127.9 kg Height/Length: 66 in. BMI: 45.5 ALLERGIES: Latex The patient's Home Medications are listed below: THE FOLLOWING MEDICATIONS NEED TO BE RECONCILED: Allopurinol Oral 40mg , 2x a day AmLODIPine Besylate Oral, pt unsure of dose Aspirin Oral (81 mg), daily Atorvastatin Calcium Oral, daily, pt unsure of dose Carvedilol Phosphate ER Oral, pt unsure of dose Cyclobenzaprine HCl Oral Gabapentin Oral 300 mg, daily Ketorolac Tromethamine Oral Lasix Oral 40 mg, daily Latuda Oral, pt unsure of dose Lisinopril Oral 20 mg, daily MetFORMIN HCl Oral 500 mg, daily Plavix Oral 75 mg, daily The source(s) of the original Home Medication information: patient The following Medications were given to the patient in the Emergency Department: None. The following Medications were prescribed to the patient: None.
--- NOTE | 2017-02-02 22:55 | ED DISCHARGE INSTRUCTIONS ---
Patient: ALEX ALTAMIRANO General Instructions [facility] VisitID: [id number] [place] [address] 56y, M Registration Date/Time: 02/02/2017 Normal exam upon presentation, while in the ED and at discharge. Anxiety reaction. No hyperventilation. INSTRUCTIONS Warnings: GENERAL WARNINGS: Return or contact your physician immediately if your condition worsens or changes unexpectedly, if not improving as expected, or if other problems arise. Specifically return if problem worsens. Follow-up: Follow up with your doctor in about three days as needed. Call for an appointment. Summary of care provided to patient. Understanding of the discharge instructions verbalized by patient. ADDITIONAL INFORMATION Normal Exam [6Yr - Adult] Based on your or your child's exam today, there are no signs of illness or injury. Be assured that the symptoms that worried you are normal. They do not suggest any illness requiring testing or treatment at this time. Home Care: You (or your child) can return to normal activities and diet. If you or your child have new or unusual symptoms not already discussed today, contact the doctor. Follow Up with the doctor for the next routine appointment. For more information: For childrens health information: www.kidshealth.org For adult health information: www.[facility].org Stress Reaction Anxiety is the feeling we all get when we think something bad might happen. It is a normal response to stress and usually causes only a mild reaction. When anxiety becomes more severe, emotions may interfere with daily life. In some cases, you may not even be aware of what it is youre anxious about! During an anxiety reaction, you may feel like you are helpless, nervous, depressed or irritable. Your body may show signs of anxiety in many ways. You may experience dry mouth, shakiness, dizziness, weakness, trouble breathing, chest pressure, headache, nausea, diarrhea, tiredness, inability to sleep or sexual problems. Home Care: 1) Try to locate the sources of stress in your life. They may not be obvious! These may include: -- Daily hassles of life which pile up (traffic jams, missed appointments, car troubles, etc.) -- Major life changes, both good (new baby, job promotion) and bad (loss of job, loss of loved one) -- Overload: feeling that you have too many responsibilities and can't take care of all of them at once -- Feeling helpless, feeling that your problems are beyond what youre able to solve 2) Notice how your body reacts to stress. Learn to listen to your body signals. This will help you take action before the stress becomes severe. 3) When you can, do something about the source of your stress. (Avoid hassles, limit the amount of change that happens in your life at one time and take a break when you feel overloaded). 4) Unfortunately, many stressful situations cannot be avoided. It is necessary to learn HOW TO MANAGE STRESS better. There are many proven methods that will reduce your anxiety. These include simple things like exercise, good nutrition and adequate rest. Also, there are certain techniques that are helpful: relaxation and breathing exercises, visualization, biofeedback and meditation. For more information about this, consult your doctor or go to a local bookstore and review the many books and tapes available on this subject. Follow Up If you feel that your anxiety is not responding to self-help measures, contact your doctor or make an appointment with a counselor. Get Prompt Medical Attention if any of the following occur: -- Your symptoms get worse -- Chest pain or trouble breathing -- Severe headache not relieved by rest and mild pain reliever -- Rapid or irregular heartbeat, fainting Panic Attack A panic attack is an extreme fear reaction that comes on for no apparent reason. Symptoms may include pounding or racing heartbeat, shortness of breath, dizziness, weakness and sweating. There is usually a fear that something terrible will happen or that you may . The attack may last a few minutes up to a few hours. Between attacks things will seem quite normal. This condition has a psychological cause and can be treated with the help of a therapist or psychiatrist. Medication is often used and can be very helpful for this problem. Home Care: Try to identify the sources of stress in your life. It may not be obvious! These may include: Daily hassles of life which pile up (traffic jams, missed appointments, car troubles, etc.). Major life changes, both good (new baby, job promotion) and bad (loss of job, loss of loved one). Overload: feeling that you have too many responsibilities and can't take care of everything at once. Helplessness: feeling like your problems are too much for you to handle. Notice how your body reacts to stress. Learn to listen to your body signals so that you can take action before the stress becomes severe. When possible, AVOID or REDUCE THE CAUSE OF STRESS. Avoid hassles, limit the amount of change that is happening in your life at one time or take a break when you feel overloaded. Unfortunately, many stressful situations cannot be avoided. Therefore, it is necessary to LEARN HOW TO MANAGE STRESS better. There are many proven methods that work and will reduce your anxiety. These include simple things like exercise, good nutrition and adequate rest. Also, there are certain techniques that are helpful: relaxation and breathing exercises, visualization, biofeedback, meditation or simply taking some time-out to clear your mind. For more information about this, consult your doctor or go to a local bookstore and review the many books and tapes available on this subject. Follow Up with your doctor or a therapist as advised. Get Prompt Medical Attention if any of the following occur: Worsening of your symptoms to the point of feeling [id number] A change in the type of pain: if it feels different, becomes more severe, lasts longer, or begins to spread into your shoulder, arm, neck, jaw or back Shortness of breath or increased pain with breathing Increasing feeling of weakness or dizziness Fainting Cough with dark colored sputum (phlegm) or blood Fever of 100.4F (38C) or higher, or as directed by your healthcare provider Swelling, pain or redness in one leg You have been given the following additional information: Normal Exam, (Child) (Adult) Anxiety Reaction Panic Attack (Electronically signed by Phylicia Hassan A.R.N.P. 02/02/2017 19:15)
--- NOTE | 2017-02-02 22:55 | ED MAR SUMMARY ---
..... Medication Administration Record [facility] [address], [place] [id number] Patient: ALEX ALTAMIRANO Visit ID: [id number] 56y, M Weight: 127.9 kg Height/Length: 66 in BMI: 45.5 ALLERGIES: Latex
--- NOTE | 2017-02-02 22:55 | ED MAR SUMMARY ---
..... Medication Administration Record [facility] [address], [place] [id number] Patient: ALEX ALTAMIRANO Visit ID: [id number] 56y, M Weight: 127.9 kg Height/Length: 66 in BMI: 45.5 ALLERGIES: Latex
== END 2017-02-02 18:17 | disposition home or self-care (01) ==
LOC: ED SRH 17:02
DX: F41.1 Generalized anxiety disorder (principal); I11.0 Hypertensive heart disease with heart failure; I50.9 Heart failure, unspecified; I25.10 Atherosclerotic heart disease of native coronary artery without angina pectoris; Z95.1 Presence of aortocoronary bypass graft; Z72.0 Tobacco use; Z79.899 Other long term (current) drug therapy; Z79.84 Long term (current) use of oral hypoglycemic drugs; Z79.82 Long term (current) use of aspirin

== ENCOUNTER 2017-02-03 13:10 | Emergency (ER) | payer OTHER ==
--- NOTE | 2017-02-03 14:37 | ED ORDER SUMMARY ---
..... Patient: ALEX ALTAMIRANO OrderSheet [facility] VisitID: [id number] [address] [place] [place] [address] 56y, M Registration Date/Time: 02/03/2017 ORDER SHEET Weight: 127.9 kg (stated) Allergies: Latex GENERAL ORDERS: MEDICATION ORDERS: HydrOXYzine PO 50 mg (NOW) (14:27 02/03/2017 HBivens A.R.N.P.) (Ack 14:31 Se [place]) (Cancelled: Patient Left14:35 Se Hill.NShane) IV FLUIDS: ORDER SHEET NOTES: [Electronically signed by Lidia Khan R.N. (14:36 02/03/2017)] [Electronically locked/signed by Lidia Khan R.N. (14:36 02/03/2017)]
--- NOTE | 2017-02-03 14:37 | ED NURSING NOTES ---
Clinical Report - Nurses [facility] [address] [place] [address] 02/03/2017 13:12 Patient: ALEX ALTAMIRANO TRIAGE Triage time 14:04. Acuity: LEVEL 4. Chief Complaint: ANXIETY. 14:13 02/03/17. Alert. No acute distress. KELLEY COMA SCORE: [place] Coma Scale: 15- eyes open spontaneously (4); best verbal response- oriented x 4 (5); best motor response- obeys commands (6). --14:13 Leo Aden R.N. 14:05 02/03/17. BP: 139/75. HR: 90. RR: 20. O2 saturation: 98% on room air. Temp: 98.5 F (oral). Pain level now 0/10. --14:13 Leo Aden R.N. Weight: 127.9 kg stated. Height/Length: 66 inches Per Patient. BMI: 45.5. --14:06 Leo Aden R.N. Medications Allopurinol Oral 40mg , 2x a day. AmLODIPine Besylate Oral (pt unsure of dose ). Aspirin Oral (Tablet 81 mg), daily. Atorvastatin Calcium Oral, daily (pt unsure of dose ). Carvedilol Phosphate ER Oral (pt unsure of dose ). Cyclobenzaprine HCl Oral. Gabapentin Oral 300 mg, daily. Ketorolac Tromethamine Oral. Lasix Oral 40 mg, daily. Latuda Oral (pt unsure of dose ). Lisinopril Oral 20 mg, daily. MetFORMIN HCl Oral 500 mg, daily. Plavix Oral 75 mg, daily. --14:07 Leo Aden R.N. Allergies Latex. Definite Moderate(rash) --14:07 Leo Aden R.N. 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 ( hx anxiety. feeling anxious today. Onset about 1 hour ago. States his diazepam didn't help.). Onset. (1 hours ago). 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 SOCIAL HX: Heavy tobacco smoker- 1 pack per day. No alcohol use or drug use. ABUSE ASSESSMENT: No report of abuse. SELF HARM ASSESSMENT: A self harm assessment was performed. The patient answered "no" to the question "Do you have thoughts of harming or killing yourself?" and "Have you recently had thoughts about harming or killing others?". FALL RISK ASSESSMENT: Fall risk assessment completed. No fall risk identified. NUTRITIONAL RISK ASSESSMENT: The nutritional risk assessment revealed no deficiencies. FUNCTIONAL ASSESSMENT: Functional assessment: no impairments noted. LEARNING NEEDS ASSESSMENT: The learning needs assessment revealed no barriers. SKIN INTEGRITY ASSESSMENT: Skin integrity risk assessment completed. No skin integrity risk identified. --14:13 Leo Aden R.N. PROBLEMS: Insomnia [Active]. Carotid Artery Disease [Active]. Congestive Heart Failure [Active]. --14:08 Leo Aden R.N. Normal Exam. Anxiety Reaction. Dyspnea. Myofascial Strain. Fall. Contusion. Gout. Morbid obesity. Chest Pain. Diabetes Mellitus. Headache. Renal Insufficiency. Arthritis. Nerve, pinched. Bipolar Disorder. Upper Extremity Pain. Back Injury. Sciatica. Heart Disease. Insomnia. Substance Abuse. Back Pain. UTI - Urinary Tract Infection. Depression. Nausea. Costochondritis. Tension-Type Headache. URI. Migraine Headache. Dental Abscess. Gastroenteritis. Hypercholesterolemia. Dental Pain. Hypertension. Manic bipolar I disorder. --14:08 Leo Aden R.N. ADDITIONAL SURGERIES: Angioplasty of blood vessel. Back Surgery. Coronary Artery Bypass Graft. --14:08 Leo Aden R.N. Interventions ID band on patient. To treatment room. --14:13 Leo Aden R.N. PHYSICAL ASSESSMENT 14:25. Ambulatory to room. GENERAL / NEURO / PSYCH: Alert. Oriented X 4. Appears in no acute distress. Speech within normal limits. Patient's mood/affect appears flat. RESPIRATORY: Respirations not labored. CVS: Capillary refill less than 2 seconds. GI / : Abdomen soft and nontender. SKIN: Skin intact. Skin is warm and dry. --14:25 Lidia Khan R.N. NURSING PROGRESS NOTES 14:25. Patient gowned. Head of bed elevated. Two patient identifiers checked. Call light placed in reach. Side rails up x 2. Bed placed in lowest position. Brakes of bed on. Patient ready for evaluation- chart flagged. --14:25 Lidia Khan R.N. DISPOSITION / DISCHARGE The patient left the Emergency Department without completion of treatment. Notified the ED physician and charge nurse of patient departure. ( found gown on bed. Unable to locate pt.). --14:35 Lidia Khan R.N. Departure time: 14:35. --14:35 Lidia Khan R.N. Locked/Released at 02/03/2017 14:36 by Lidia Khan R.N.
--- NOTE | 2017-02-03 14:37 | ED CLINICAL REPORT ---
Clinical Report - Physicians/Mid Levels [facility] [address] [place] [address] 02/03/2017 13:12 Patient: ALEX ALTAMIRANO Time Seen: 14:22; initial patient contact, initial documentation, patient care assumed. Arrived- By private vehicle. Historian- patient. RETURN VISIT: recently seen in this ED by me. Seen now for the same problem as before. HISTORY OF PRESENT ILLNESS Chief Complaint: ( anxiety). At its maximum, severity described as severe. When seen in the E.D., severity described as moderate. Modifying factors- (relieved with meds). This started just prior to arrival and is still present. It was abrupt in onset. No current or associated symptoms. 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 Similar symptoms previously: Chronically. Recent medical care: The patient was seen recently at this facility in a clinic. ( pt went to clinic yesterday for anxiety, and was also seen here by me). REVIEW OF SYSTEMS No fever, difficulty breathing, chest pain or abdominal pain. He has had back pain (nothing new, his usual back pain). All systems otherwise negative, except as recorded above. PAST HISTORY See nurses notes. PROBLEMS: Insomnia [Active]. Carotid Artery Disease [Active]. Congestive Heart Failure [Active]. --14:08 Leo Aden R.N. Normal Exam. Anxiety Reaction. Dyspnea. Myofascial Strain. Fall. Contusion. Gout. Morbid obesity. Chest Pain. Diabetes Mellitus. Headache. Renal Insufficiency. Arthritis. Nerve, pinched. Bipolar Disorder. Upper Extremity Pain. Back Injury. Sciatica. Heart Disease. Insomnia. Substance Abuse. Back Pain. UTI - Urinary Tract Infection. Depression. Nausea. Costochondritis. Tension-Type Headache. URI. Migraine Headache. Dental Abscess. Gastroenteritis. Hypercholesterolemia. Dental Pain. Hypertension. Manic bipolar I disorder. --14:08 Leo Aden R.N. ADDITIONAL SURGERIES: Angioplasty of blood vessel. Back Surgery. Coronary Artery Bypass Graft. --14:08 Leo Aden R.N. SOCIAL HISTORY Heavy tobacco smoker. Occasional alcohol use. History of occasional drug use: marijuana. No recent travel. Is a local resident. FAMILY HISTORY Negative. ADDITIONAL NOTES The nursing notes have been reviewed with agreement regarding the chief complaint, HPI, ROS, PMH and patient medications and allergies. PHYSICAL EXAM Vital Signs: 02/03/2017 14:05 BP: 139/75. HR: 90. RR: 20. O2 saturation: 98%. Temp: 98.5 F. Have been reviewed as normal and appear to be correct. Appearance: Alert. No acute distress. Eyes: Pupils equal, round and reactive to light. Eyes normal inspection. Neck: Normal inspection. Neck supple. CVS: Normal heart rate and rhythm. Heart sounds normal. Pulses normal. Respiratory: No respiratory distress. Breath sounds normal. Chest nontender. Abdomen: No visible injury. Soft and nontender. Moderately obese. Back: Normal inspection. Skin: Skin warm and dry. Normal skin color. No rash. Normal skin turgor. Extremities: Extremities exhibit normal ROM. No lower extremity edema. Neuro: Oriented X 3. No motor deficit. No sensory deficit. (flat affect and appears under the influence). PROGRESS AND PROCEDURES Course of Care: had discussion with pt in re to tx options in er, proper use of er, and agreed to give more hydroxyzine for his anxiety, since it helped in past 14:28 02/03/17. pt has ciara for narcs, #35 er visits, and recommendations for no narcs or controlled substances to be given in er, see report for full details 14:40 02/03/17. nurse reporting she went to give pt his meds, and he was gone, he eloped. Patient counseled in person regarding the patient's stable condition and diagnosis. Differential Diagnosis: Other possible considerations: substance abuse, anxiety, noncompliance, chronic pain issues. Above considerations are based on history and physical exam. Differential diagnosis was discussed with patient. Disposition: Discharged home in good and improved condition (14:31). Condition: good and stable. CLINICAL IMPRESSION Normal exam upon presentation, while in the ED and at discharge. (Electronically signed by Phylicia Hassan A.R.N.P. 02/03/2017 14:41)
--- NOTE | 2017-02-03 14:37 | ED ORDER SUMMARY ---
..... Patient: ALEX ALTAMIRANO OrderSheet [facility] VisitID: [id number] [address] [place] [address] 56y, M Registration Date/Time: 02/03/2017 ORDER SHEET Weight: 127.9 kg (stated) Allergies: Latex GENERAL ORDERS: MEDICATION ORDERS: HydrOXYzine PO 50 mg (NOW) (14:27 02/03/2017 HBivens A.R.N.P.) (Ack 14:31 Se [place]) (Cancelled: Patient Left14:35 Se Hill.NShane) IV FLUIDS: ORDER SHEET NOTES: [Electronically signed by Lidia Khan R.N. (14:36 02/03/2017)] [Electronically locked/signed by Lidia Khan R.N. (14:36 02/03/2017)]
--- NOTE | 2017-02-03 14:37 | ED NURSING NOTES ---
Clinical Report - Nurses [facility] [address] [place] [address] 02/03/2017 13:12 Patient: ALEX ALTAMIRANO TRIAGE Triage time 14:04. Acuity: LEVEL 4. Chief Complaint: ANXIETY. 14:13 02/03/17. Alert. No acute distress. KELLEY COMA SCORE: [place] Coma Scale: 15- eyes open spontaneously (4); best verbal response- oriented x 4 (5); best motor response- obeys commands (6). --14:13 Leo Aden R.N. 14:05 02/03/17. BP: 139/75. HR: 90. RR: 20. O2 saturation: 98% on room air. Temp: 98.5 F (oral). Pain level now 0/10. --14:13 Leo Aden R.N. Weight: 127.9 kg stated. Height/Length: 66 inches Per Patient. BMI: 45.5. --14:06 Leo Aden R.N. Medications Allopurinol Oral 40mg , 2x a day. AmLODIPine Besylate Oral (pt unsure of dose ). Aspirin Oral (Tablet 81 mg), daily. Atorvastatin Calcium Oral, daily (pt unsure of dose ). Carvedilol Phosphate ER Oral (pt unsure of dose ). Cyclobenzaprine HCl Oral. Gabapentin Oral 300 mg, daily. Ketorolac Tromethamine Oral. Lasix Oral 40 mg, daily. Latuda Oral (pt unsure of dose ). Lisinopril Oral 20 mg, daily. MetFORMIN HCl Oral 500 mg, daily. Plavix Oral 75 mg, daily. --14:07 Leo Aden R.N. Allergies Latex. Definite Moderate(rash) --14:07 Leo Aden R.N. 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 ( hx anxiety. feeling anxious today. Onset about 1 hour ago. States his diazepam didn't help.). Onset. (1 hours ago). 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 SOCIAL HX: Heavy tobacco smoker- 1 pack per day. No alcohol use or drug use. ABUSE ASSESSMENT: No report of abuse. SELF HARM ASSESSMENT: A self harm assessment was performed. The patient answered "no" to the question "Do you have thoughts of harming or killing yourself?" and "Have you recently had thoughts about harming or killing others?". FALL RISK ASSESSMENT: Fall risk assessment completed. No fall risk identified. NUTRITIONAL RISK ASSESSMENT: The nutritional risk assessment revealed no deficiencies. FUNCTIONAL ASSESSMENT: Functional assessment: no impairments noted. LEARNING NEEDS ASSESSMENT: The learning needs assessment revealed no barriers. SKIN INTEGRITY ASSESSMENT: Skin integrity risk assessment completed. No skin integrity risk identified. --14:13 Leo Aden R.N. PROBLEMS: Insomnia [Active]. Carotid Artery Disease [Active]. Congestive Heart Failure [Active]. --14:08 Leo Aden R.N. Normal Exam. Anxiety Reaction. Dyspnea. Myofascial Strain. Fall. Contusion. Gout. Morbid obesity. Chest Pain. Diabetes Mellitus. Headache. Renal Insufficiency. Arthritis. Nerve, pinched. Bipolar Disorder. Upper Extremity Pain. Back Injury. Sciatica. Heart Disease. Insomnia. Substance Abuse. Back Pain. UTI - Urinary Tract Infection. Depression. Nausea. Costochondritis. Tension-Type Headache. URI. Migraine Headache. Dental Abscess. Gastroenteritis. Hypercholesterolemia. Dental Pain. Hypertension. Manic bipolar I disorder. --14:08 Leo Aden R.N. ADDITIONAL SURGERIES: Angioplasty of blood vessel. Back Surgery. Coronary Artery Bypass Graft. --14:08 Leo Aden R.N. Interventions ID band on patient. To treatment room. --14:13 Leo Aden R.N. PHYSICAL ASSESSMENT 14:25. Ambulatory to room. GENERAL / NEURO / PSYCH: Alert. Oriented X 4. Appears in no acute distress. Speech within normal limits. Patient's mood/affect appears flat. RESPIRATORY: Respirations not labored. CVS: Capillary refill less than 2 seconds. GI / : Abdomen soft and nontender. SKIN: Skin intact. Skin is warm and dry. --14:25 Lidia Khan R.N. NURSING PROGRESS NOTES 14:25. Patient gowned. Head of bed elevated. Two patient identifiers checked. Call light placed in reach. Side rails up x 2. Bed placed in lowest position. Brakes of bed on. Patient ready for evaluation- chart flagged. --14:25 Lidia Khan R.N. DISPOSITION / DISCHARGE The patient left the Emergency Department without completion of treatment. Notified the ED physician and charge nurse of patient departure. ( found gown on bed. Unable to locate pt.). --14:35 Lidia Khan R.N. Departure time: 14:35. --14:35 Lidia Khan R.N. Locked/Released at 02/03/2017 14:36 by Lidia Khan R.N.
--- NOTE | 2017-02-03 14:41 | ED MED RECONCILIATION SUMMARY ---
Patient: ALEX ALTAMIRANO Medication Reconciliation Report [facility] VisitID: [id number] [address] [place] [address] 56y, M Registration Date/Time: 02/03/2017 Weight: 127.9 kg Height/Length: 66 in. BMI: 45.5 ALLERGIES: Latex The patient's Home Medications are listed below: THE FOLLOWING MEDICATIONS NEED TO BE RECONCILED: Allopurinol Oral 40mg , 2x a day AmLODIPine Besylate Oral, pt unsure of dose Aspirin Oral (81 mg), daily Atorvastatin Calcium Oral, daily, pt unsure of dose Carvedilol Phosphate ER Oral, pt unsure of dose Cyclobenzaprine HCl Oral Gabapentin Oral 300 mg, daily Ketorolac Tromethamine Oral Lasix Oral 40 mg, daily Latuda Oral, pt unsure of dose Lisinopril Oral 20 mg, daily MetFORMIN HCl Oral 500 mg, daily Plavix Oral 75 mg, daily The source(s) of the original Home Medication information: Not obtained. The following Medications were given to the patient in the Emergency Department: None. The following Medications were prescribed to the patient: None.
--- NOTE | 2017-02-03 14:41 | ED DISCHARGE INSTRUCTIONS ---
Patient: ALEX ALTAMIRANO General Instructions [facility] VisitID: [id number] [place] [address] 56y, M Registration Date/Time: 02/03/2017 Normal exam upon presentation, while in the ED and at discharge. ADDITIONAL INFORMATION Normal Exam [6Yr - Adult] Based on your or your child's exam today, there are no signs of illness or injury. Be assured that the symptoms that worried you are normal. They do not suggest any illness requiring testing or treatment at this time. Home Care: You (or your child) can return to normal activities and diet. If you or your child have new or unusual symptoms not already discussed today, contact the doctor. Follow Up with the doctor for the next routine appointment. For more information: For childrens health information: www.kidshealth.org For adult health information: www.[facility].org You have been given the following additional information: Normal Exam, (Child) (Adult) (Electronically signed by Phylicia Hassan A.R.N.P. 02/03/2017 14:41)
--- NOTE | 2017-02-03 14:41 | ED MAR SUMMARY ---
..... Medication Administration Record [facility] [address], [place] [id number] Patient: ALEX ALTAMIRANO Visit ID: [id number] 56y, M Weight: 127.9 kg Height/Length: 66 in BMI: 45.5 ALLERGIES: Latex
--- NOTE | 2017-02-03 14:41 | ED MAR SUMMARY ---
..... Medication Administration Record [facility] [address], [place] [id number] Patient: ALEX ALTAMIRANO Visit ID: [id number] 56y, M Weight: 127.9 kg Height/Length: 66 in BMI: 45.5 ALLERGIES: Latex
--- NOTE | 2017-02-03 14:41 | ED DISCHARGE INSTRUCTIONS ---
Patient: ALEX ALTAMIRANO General Instructions [facility] VisitID: [id number] [place] [address] 56y, M Registration Date/Time: 02/03/2017 Normal exam upon presentation, while in the ED and at discharge. ADDITIONAL INFORMATION Normal Exam [6Yr - Adult] Based on your or your child's exam today, there are no signs of illness or injury. Be assured that the symptoms that worried you are normal. They do not suggest any illness requiring testing or treatment at this time. Home Care: You (or your child) can return to normal activities and diet. If you or your child have new or unusual symptoms not already discussed today, contact the doctor. Follow Up with the doctor for the next routine appointment. For more information: For childrens health information: www.kidshealth.org For adult health information: www.[facility].org You have been given the following additional information: Normal Exam, (Child) (Adult) (Electronically signed by Phylicia Hassan A.R.N.P. 02/03/2017 14:41)
--- NOTE | 2017-02-03 14:41 | ED MED RECONCILIATION SUMMARY ---
Patient: ALEX ALTAMIRANO Medication Reconciliation Report [facility] VisitID: [id number] [address] [place] [address] 56y, M Registration Date/Time: 02/03/2017 Weight: 127.9 kg Height/Length: 66 in. BMI: 45.5 ALLERGIES: Latex The patient's Home Medications are listed below: THE FOLLOWING MEDICATIONS NEED TO BE RECONCILED: Allopurinol Oral 40mg , 2x a day AmLODIPine Besylate Oral, pt unsure of dose Aspirin Oral (81 mg), daily Atorvastatin Calcium Oral, daily, pt unsure of dose Carvedilol Phosphate ER Oral, pt unsure of dose Cyclobenzaprine HCl Oral Gabapentin Oral 300 mg, daily Ketorolac Tromethamine Oral Lasix Oral 40 mg, daily Latuda Oral, pt unsure of dose Lisinopril Oral 20 mg, daily MetFORMIN HCl Oral 500 mg, daily Plavix Oral 75 mg, daily The source(s) of the original Home Medication information: Not obtained. The following Medications were given to the patient in the Emergency Department: None. The following Medications were prescribed to the patient: None.
== END 2017-02-03 14:35 | disposition left against medical advice (07) ==
LOC: ED SRH 13:10
DX: F41.9 Anxiety disorder, unspecified (principal); I10 Essential (primary) hypertension; E11.9 Type 2 diabetes mellitus without complications

== ENCOUNTER 2017-02-04 16:45 | Emergency (ER) | payer OTHER ==
--- NOTE | 2017-02-04 17:41 | ED NURSING NOTES ---
Clinical Report - Nurses [facility] [address] [place] [address] 02/04/2017 16:45 Patient: ALEX ALTAMIRANO TRIAGE Triage time 16:59 Young 18 2016. Acuity: LEVEL 5. Chief Complaint: ANXIETY and (pt co ongoing anxiety, out of hydroxyzine, was seen yesterday for same and left prior to meds). Alert. No acute distress. SEPSIS SCREEN: Sepsis Screen. Negative (no infection suspected/documented). KELLEY COMA SCORE: [place] Coma Scale: 15- eyes open spontaneously (4); best verbal response- oriented x 4 (5); best motor response- obeys commands (6). --17:03 Tha Napoles R.N. 17:03 02/04/17. BP: 145/81. HR: 92. RR: 19. O2 saturation: 97%. Temp: 97.8 F. Pain level now: 0/10. --17:03 Tha Napoles R.N. Weight: 127.9 kg stated. Height/Length: 66 inches Per Patient. BMI: 45.5. --17:01 Tha Napoles R.N. Medications Allopurinol Oral 40mg , 2x a day. AmLODIPine Besylate Oral (pt unsure of dose ). Aspirin Oral (Tablet 81 mg), daily. Atorvastatin Calcium Oral, daily (pt unsure of dose ). Carvedilol Phosphate ER Oral (pt unsure of dose ). Cyclobenzaprine HCl Oral. Gabapentin Oral 300 mg, daily. Ketorolac Tromethamine Oral. Lasix Oral 40 mg, daily. Latuda Oral (pt unsure of dose ). Lisinopril Oral 20 mg, daily. MetFORMIN HCl Oral 500 mg, daily. Plavix Oral 75 mg, daily. --17:00 Tha Napoles R.N. Medication/allergy information source: the patient. --17:03 Tha Napoles R.N. Allergies Latex. Definite Moderate(rash) --17:00 Tha Napoles R.N. History Arrived by private vehicle. Historian: patient. Onset. (ongoing). He has had anxiety. Treatment EYELETTER: None. PAST MEDICAL HX: Anxiety. Psychiatric illness. Immunizations: up-to-date. SOCIAL HX: Smoker- current status unknown (cigarette). Occasional alcohol use. No drug use. No infectious disease exposure. ABUSE ASSESSMENT: No report of abuse. SELF HARM ASSESSMENT: A self harm assessment was performed. The patient answered "no" to the question "Do you have thoughts of harming or killing yourself?". FALL RISK ASSESSMENT: Fall risk assessment completed. No fall risk identified. NUTRITIONAL RISK ASSESSMENT: The nutritional risk assessment revealed no deficiencies. FUNCTIONAL ASSESSMENT: Functional assessment: no impairments noted. LEARNING NEEDS ASSESSMENT: The learning needs assessment revealed no barriers. SKIN INTEGRITY ASSESSMENT: Skin integrity risk assessment completed. No skin integrity risk identified. --17:03 Tha Napoles R.N. PROBLEMS: Insomnia [Active]. Carotid Artery Disease [Active]. Congestive Heart Failure [Active]. --17:00 Tha Napoles R.N. Normal Exam. Anxiety Reaction. Dyspnea. Myofascial Strain. Fall. Contusion. Gout. Morbid obesity. Chest Pain. Diabetes Mellitus. Headache. Renal Insufficiency. Arthritis. Nerve, pinched. Bipolar Disorder. Upper Extremity Pain. Back Injury. Sciatica. Heart Disease. Insomnia. Substance Abuse. Back Pain. UTI - Urinary Tract Infection. Depression. Nausea. Costochondritis. Tension-Type Headache. URI. Migraine Headache. Dental Abscess. Gastroenteritis. Hypercholesterolemia. Dental Pain. Hypertension. Manic bipolar I disorder. --17:00 Tha Napoles R.N. ADDITIONAL SURGERIES: Angioplasty of blood vessel. Back Surgery. Coronary Artery Bypass Graft. --17:00 Tha Napoles R.N. Interventions ID band on patient. --17:03 Tha Napoles R.N. PHYSICAL ASSESSMENT Ambulatory to room. GENERAL / NEURO / PSYCH: Alert. Oriented X 4. Appears in no acute distress. Speech within normal limits. Patient's mood/affect appears flat. Patient appears calm and cooperative. Affect appears flat and appears labile. Good eye contact. Patient appears well-nourished and unkempt. RESPIRATORY: Respirations not labored. CVS: Capillary refill less than 2 seconds. SKIN: Skin is warm and dry. Skin color is within normal limits. --17:04 Tha Napoles R.N. NURSING PROGRESS NOTES Patient identifiers checked. Call light placed in reach. Patient placed in chair. Brakes of chair on. ( BLOW PIT OPERATOR at bedside during triage). --17:04 Tha Napoles R.N. 17:42 02/04/2017 Hydroxyzine (HydrOXYzine HCl) PO 25 mg given. Allergies verified, confirmed 5 rights and sedative warning given to the patient. --17:52 Tha Napoles R.N. DISPOSITION / DISCHARGE No learning barriers present. Discharge instructions provided and reviewed with the patient. Reviewed medication(s) information. Prescription(s) given to the patient. Patient verbalized understanding. Written instructions provided in [place]. The patient was discharged by the nurse practitioner. He was discharged home. He left the Emergency Department ambulatory and via private vehicle. --17:54 Tha Napoles R.N. 17:53 02/04/17. BP: 140/76. HR: 87. RR: 17. O2 saturation: 97%. Temp: deferred. Pain level now: 0/10. --17:54 Tha Napoles R.N. Locked/Released at 02/04/2017 20:41 by Tha Napoles R.N.
--- NOTE | 2017-02-04 17:41 | ED ORDER SUMMARY ---
..... Patient: ALEX ALTAMIRANO OrderSheet [facility] VisitID: [id number] [address] [place] [address] 56y, M Registration Date/Time: 02/04/2017 ORDER SHEET Weight: 127.9 kg (stated) Allergies: Latex GENERAL ORDERS: MEDICATION ORDERS: HydrOXYzine PO 25 mg (NOW) (17:28 02/04/2017 Jonathan A.R.N.P.) (Ack 17:50 Mihir R.N.) (17:52 Ezequiel R.N.) IV FLUIDS: ORDER SHEET NOTES: [Electronically signed by Tha Napoles R.N. (20:41 02/04/2017)] [Electronically signed by Phylicia HassanR.N.PShane (23:06 02/04/2017)] [Electronically locked/signed by Tha Napoles R.N. (20:41 02/04/2017)]
--- NOTE | 2017-02-04 17:41 | ED CLINICAL REPORT ---
Clinical Report - Physicians/Mid Levels [facility] [address] [place] [address] 02/04/2017 16:45 Patient: ALEX ALTAMIRANO Time Seen: 1705; upon arrival (in triage), initial patient contact, initial documentation, patient care assumed. Arrived- By private vehicle. Historian- patient. RETURN VISIT: recently seen in this ED by me. Seen now for the same problem as before. HISTORY OF PRESENT ILLNESS Chief Complaint: ( anxiety). At its maximum, severity described as severe. When seen in the E.D., it was gone. Modifying factors. Not worsened by anything. This started today and is still present but is better now. (better after valium). No current or associated symptoms. 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 Similar symptoms previously: Chronically. Recent medical care: The patient was seen recently at this facility. ( yesterday for same thing, and day before for same thing, yesterday pt left before meds were given, or dc papers and rx). REVIEW OF SYSTEMS No fever, difficulty breathing, chest pain, abdominal pain or vomiting. No diarrhea. All systems otherwise negative, except as recorded above. PAST HISTORY See nurses notes. PROBLEMS: Insomnia [Active]. Carotid Artery Disease [Active]. Congestive Heart Failure [Active]. --17:00 Tha Napoles, R.N. Normal Exam. Anxiety Reaction. Dyspnea. Myofascial Strain. Fall. Contusion. Gout. Morbid obesity. Chest Pain. Diabetes Mellitus. Headache. Renal Insufficiency. Arthritis. Nerve, pinched. Bipolar Disorder. Upper Extremity Pain. Back Injury. Sciatica. Heart Disease. Insomnia. Substance Abuse. Back Pain. UTI - Urinary Tract Infection. Depression. Nausea. Costochondritis. Tension-Type Headache. URI. Migraine Headache. Dental Abscess. Gastroenteritis. Hypercholesterolemia. Dental Pain. Hypertension. Manic bipolar I disorder. --17:00 Tha Napoles, R.N. ADDITIONAL SURGERIES: Angioplasty of blood vessel. Back Surgery. Coronary Artery Bypass Graft. --17:00 Tha Napoles R.N. SOCIAL HISTORY Light tobacco smoker. Occasional alcohol use. History of occasional drug use: marijuana. No recent travel. Is a local resident. He lives with spouse. FAMILY HISTORY Negative. ADDITIONAL NOTES The nursing notes have been reviewed with agreement regarding the chief complaint, HPI, ROS, PMH and patient medications and allergies. PHYSICAL EXAM Vital Signs: 02/04/2017 17:03 BP: 145/81. HR: 92. RR: 19. O2 saturation: 97%. Temp: 97.8 F. Pain level now: 0/10. Have been reviewed as normal and appear to be correct. Appearance: Alert. No acute distress. (flat affected and appears sedated, pt also wearing same clothes as day prior). Eyes: Pupils equal, round and reactive to light. Eyes normal inspection. Neck: Normal inspection. Neck supple. CVS: Normal heart rate and rhythm. Heart sounds normal. Pulses normal. Respiratory: No respiratory distress. Breath sounds normal. Chest nontender. Abdomen: No visible injury. Soft and nontender. Moderately obese. Back: Normal inspection. Skin: Skin warm and dry. Normal skin color. No rash. Normal skin turgor. Extremities: Extremities exhibit normal ROM. No lower extremity edema. Neuro: Oriented X 3. No motor deficit. No sensory deficit. PROGRESS AND PROCEDURES Course of Care: had discussion with pt, with rn present, re his leaving yesterday, and that he has done this many times, that we can not help him if he does not stay, about his frequent er visits, his chronic back pain issues, his spouse helping him at home and general conversation about his health and how he is doing, concerns voiced on why pt was back 3 days in row, wearing same clothes pt has long ciara, now up to #37 er visits, see report for full details. Patient counseled in person regarding the patient's stable condition and diagnosis. Differential Diagnosis: Other possible considerations: substance abuse, anxiety, chronic pain issues, noncompliant. Above considerations are based on history and physical exam. Differential diagnosis was discussed with patient. Disposition: Discharged home in good and improved condition (17:40). Condition: good and stable. CLINICAL IMPRESSION Normal exam upon presentation, while in the ED and at discharge. Medication refill. Anxiety reaction. INSTRUCTIONS Warnings: GENERAL WARNINGS: Return or contact your physician immediately if your condition worsens or changes unexpectedly, if not improving as expected, or if other problems arise. Specifically return if problem worsens. Prescription Medications: Hydroxyzine 50 mg: Take 1 orally every 6 hours as needed for anxiety. Dispense twenty (20). No refills. Follow-up: Follow up with your doctor Sunday as scheduled even if well. Summary of care provided to patient. Understanding of the discharge instructions verbalized by patient. (Electronically signed by Phylicia Hassan A.R.N.P. 02/04/2017 23:06)
--- NOTE | 2017-02-04 17:41 | ED ORDER SUMMARY ---
..... Patient: ALEX ALTAMIRANO OrderSheet [facility] VisitID: [id number] [address] [place] [address] 56y, M Registration Date/Time: 02/04/2017 ORDER SHEET Weight: 127.9 kg (stated) Allergies: Latex GENERAL ORDERS: MEDICATION ORDERS: HydrOXYzine PO 25 mg (NOW) (17:28 02/04/2017 Jonathan A.R.N.P.) (Ack 17:50 Mihir R.N.) (17:52 Ezequiel R.N.) IV FLUIDS: ORDER SHEET NOTES: [Electronically signed by Tha Napoles R.N. (20:41 02/04/2017)] [Electronically signed by Phylicia HassanR.N.PShane (23:06 02/04/2017)] [Electronically locked/signed by Tha Napoles R.N. (20:41 02/04/2017)]
--- NOTE | 2017-02-04 17:41 | ED NURSING NOTES ---
Clinical Report - Nurses [facility] [address] [place] [address] 02/04/2017 16:45 Patient: ALEX ALTAMIRANO TRIAGE Triage time 16:59 Young 18 2016. Acuity: LEVEL 5. Chief Complaint: ANXIETY and (pt co ongoing anxiety, out of hydroxyzine, was seen yesterday for same and left prior to meds). Alert. No acute distress. SEPSIS SCREEN: Sepsis Screen. Negative (no infection suspected/documented). KELLEY COMA SCORE: [place] Coma Scale: 15- eyes open spontaneously (4); best verbal response- oriented x 4 (5); best motor response- obeys commands (6). --17:03 Tha Napoles R.N. 17:03 02/04/17. BP: 145/81. HR: 92. RR: 19. O2 saturation: 97%. Temp: 97.8 F. Pain level now: 0/10. --17:03 Tha Napoles R.N. Weight: 127.9 kg stated. Height/Length: 66 inches Per Patient. BMI: 45.5. --17:01 Tha Napoles R.N. Medications Allopurinol Oral 40mg , 2x a day. AmLODIPine Besylate Oral (pt unsure of dose ). Aspirin Oral (Tablet 81 mg), daily. Atorvastatin Calcium Oral, daily (pt unsure of dose ). Carvedilol Phosphate ER Oral (pt unsure of dose ). Cyclobenzaprine HCl Oral. Gabapentin Oral 300 mg, daily. Ketorolac Tromethamine Oral. Lasix Oral 40 mg, daily. Latuda Oral (pt unsure of dose ). Lisinopril Oral 20 mg, daily. MetFORMIN HCl Oral 500 mg, daily. Plavix Oral 75 mg, daily. --17:00 Tha Napoles R.N. Medication/allergy information source: the patient. --17:03 Tha Napoles R.N. Allergies Latex. Definite Moderate(rash) --17:00 Tha Napoles R.N. History Arrived by private vehicle. Historian: patient. Onset. (ongoing). He has had anxiety. 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 PAST MEDICAL HX: Anxiety. Psychiatric illness. Immunizations: up-to-date. SOCIAL HX: Smoker- current status unknown (cigarette). Occasional alcohol use. No drug use. No infectious disease exposure. ABUSE ASSESSMENT: No report of abuse. SELF HARM ASSESSMENT: A self harm assessment was performed. The patient answered "no" to the question "Do you have thoughts of harming or killing yourself?". FALL RISK ASSESSMENT: Fall risk assessment completed. No fall risk identified. NUTRITIONAL RISK ASSESSMENT: The nutritional risk assessment revealed no deficiencies. FUNCTIONAL ASSESSMENT: Functional assessment: no impairments noted. LEARNING NEEDS ASSESSMENT: The learning needs assessment revealed no barriers. SKIN INTEGRITY ASSESSMENT: Skin integrity risk assessment completed. No skin integrity risk identified. --17:03 Tha Napoles R.N. PROBLEMS: Insomnia [Active]. Carotid Artery Disease [Active]. Congestive Heart Failure [Active]. --17:00 Tha Napoles R.N. Normal Exam. Anxiety Reaction. Dyspnea. Myofascial Strain. Fall. Contusion. Gout. Morbid obesity. Chest Pain. Diabetes Mellitus. Headache. Renal Insufficiency. Arthritis. Nerve, pinched. Bipolar Disorder. Upper Extremity Pain. Back Injury. Sciatica. Heart Disease. Insomnia. Substance Abuse. Back Pain. UTI - Urinary Tract Infection. Depression. Nausea. Costochondritis. Tension-Type Headache. URI. Migraine Headache. Dental Abscess. Gastroenteritis. Hypercholesterolemia. Dental Pain. Hypertension. Manic bipolar I disorder. --17:00 Tha Napoles R.N. ADDITIONAL SURGERIES: Angioplasty of blood vessel. Back Surgery. Coronary Artery Bypass Graft. --17:00 Tha Napoles R.N. Interventions ID band on patient. --17:03 Tha Napoles R.N. PHYSICAL ASSESSMENT Ambulatory to room. GENERAL / NEURO / PSYCH: Alert. Oriented X 4. Appears in no acute distress. Speech within normal limits. Patient's mood/affect appears flat. Patient appears calm and cooperative. Affect appears flat and appears labile. Good eye contact. Patient appears well-nourished and unkempt. RESPIRATORY: Respirations not labored. CVS: Capillary refill less than 2 seconds. SKIN: Skin is warm and dry. Skin color is within normal limits. --17:04 Tha Napoles R.N. NURSING PROGRESS NOTES Patient identifiers checked. Call light placed in reach. Patient placed in chair. Brakes of chair on. ( INSPECTOR PAPER PRODUCTS at bedside during triage). --17:04 Tha Napoles R.N. 17:42 02/04/2017 Hydroxyzine (HydrOXYzine HCl) PO 25 mg given. Allergies verified, confirmed 5 rights and sedative warning given to the patient. --17:52 Tha Napoles R.N. DISPOSITION / DISCHARGE No learning barriers present. Discharge instructions provided and reviewed with the patient. Reviewed medication(s) information. Prescription(s) given to the patient. Patient verbalized understanding. Written instructions provided in Romanian. The patient was discharged by the nurse practitioner. He was discharged home. He left the Emergency Department ambulatory and via private vehicle. --17:54 Tha Napoles R.N. 17:53 02/04/17. BP: 140/76. HR: 87. RR: 17. O2 saturation: 97%. Temp: deferred. Pain level now: 0/10. --17:54 Tha Napoles R.N. Locked/Released at 02/04/2017 20:41 by Tha Napoles R.N.
--- NOTE | 2017-02-04 23:06 | ED DISCHARGE INSTRUCTIONS ---
Patient: ALEX ALTAMIRANO General Instructions [facility] VisitID: [id number] [place] [address] 56y, M Registration Date/Time: 02/04/2017 Normal exam upon presentation, while in the ED and at discharge. Medication refill. Anxiety reaction. INSTRUCTIONS Warnings: GENERAL WARNINGS: Return or contact your physician immediately if your condition worsens or changes unexpectedly, if not improving as expected, or if other problems arise. Specifically return if problem worsens. Prescription Medications: Hydroxyzine 50 mg: Take 1 orally every 6 hours as needed for anxiety. Dispense twenty (20). No refills. Follow-up: Follow up with your doctor Sunday as scheduled even if well. Summary of care provided to patient. Understanding of the discharge instructions verbalized by patient. ADDITIONAL INFORMATION Normal Exam [6Yr - Adult] Based on your or your child's exam today, there are no signs of illness or injury. Be assured that the symptoms that worried you are normal. They do not suggest any illness requiring testing or treatment at this time. Home Care: You (or your child) can return to normal activities and diet. If you or your child have new or unusual symptoms not already discussed today, contact the doctor. Follow Up with the doctor for the next routine appointment. For more information: For childrens health information: www.kidshealth.org For adult health information: www.mayoinic.org Stress Reaction Anxiety is the feeling we all get when we think something bad might happen. It is a normal response to stress and usually causes only a mild reaction. When anxiety becomes more severe, emotions may interfere with daily life. In some cases, you may not even be aware of what it is youre anxious about! During an anxiety reaction, you may feel like you are helpless, nervous, depressed or irritable. Your body may show signs of anxiety in many ways. You may experience dry mouth, shakiness, dizziness, weakness, trouble breathing, chest pressure, headache, nausea, diarrhea, tiredness, inability to sleep or sexual problems. Home Care: 1) Try to locate the sources of stress in your life. They may not be obvious! These may include: -- Daily hassles of life which pile up (traffic jams, missed appointments, car troubles, etc.) -- Major life changes, both good (new baby, job promotion) and bad (loss of job, loss of loved one) -- Overload: feeling that you have too many responsibilities and can't take care of all of them at once -- Feeling helpless, feeling that your problems are beyond what youre able to solve 2) Notice how your body reacts to stress. Learn to listen to your body signals. This will help you take action before the stress becomes severe. 3) When you can, do something about the source of your stress. (Avoid hassles, limit the amount of change that happens in your life at one time and take a break when you feel overloaded). 4) Unfortunately, many stressful situations cannot be avoided. It is necessary to learn HOW TO MANAGE STRESS better. There are many proven methods that will reduce your anxiety. These include simple things like exercise, good nutrition and adequate rest. Also, there are certain techniques that are helpful: relaxation and breathing exercises, visualization, biofeedback and meditation. For more information about this, consult your doctor or go to a local bookstore and review the many books and tapes available on this subject. Follow Up If you feel that your anxiety is not responding to self-help measures, contact your doctor or make an appointment with a counselor. Get Prompt Medical Attention if any of the following occur: -- Your symptoms get worse -- Chest pain or trouble breathing -- Severe headache not relieved by rest and mild pain reliever -- Rapid or irregular heartbeat, fainting Panic Attack A panic attack is an extreme fear reaction that comes on for no apparent reason. Symptoms may include pounding or racing heartbeat, shortness of breath, dizziness, weakness and sweating. There is usually a fear that something terrible will happen or that you may . The attack may last a few minutes up to a few hours. Between attacks things will seem quite normal. This condition has a psychological cause and can be treated with the help of a therapist or psychiatrist. Medication is often used and can be very helpful for this problem. Home Care: Try to identify the sources of stress in your life. It may not be obvious! These may include: Daily hassles of life which pile up (traffic jams, missed appointments, car troubles, etc.). Major life changes, both good (new baby, job promotion) and bad (loss of job, loss of loved one). Overload: feeling that you have too many responsibilities and can't take care of everything at once. Helplessness: feeling like your problems are too much for you to handle. Notice how your body reacts to stress. Learn to listen to your body signals so that you can take action before the stress becomes severe. When possible, AVOID or REDUCE THE CAUSE OF STRESS. Avoid hassles, limit the amount of change that is happening in your life at one time or take a break when you feel overloaded. Unfortunately, many stressful situations cannot be avoided. Therefore, it is necessary to LEARN HOW TO MANAGE STRESS better. There are many proven methods that work and will reduce your anxiety. These include simple things like exercise, good nutrition and adequate rest. Also, there are certain techniques that are helpful: relaxation and breathing exercises, visualization, biofeedback, meditation or simply taking some time-out to clear your mind. For more information about this, consult your doctor or go to a local bookstore and review the many books and tapes available on this subject. Follow Up with your doctor or a therapist as advised. Get Prompt Medical Attention if any of the following occur: Worsening of your symptoms to the point of feeling [id number] A change in the type of pain: if it feels different, becomes more severe, lasts longer, or begins to spread into your shoulder, arm, neck, jaw or back Shortness of breath or increased pain with breathing Increasing feeling of weakness or dizziness Fainting Cough with dark colored sputum (phlegm) or blood Fever of 100.4F (38C) or higher, or as directed by your healthcare provider Swelling, pain or redness in one leg Hydroxyzine Pamoate Oral capsule What is this medicine? HYDROXYZINE (chula DROX i zeen) is an antihistamine. This medicine is used to treat allergy symptoms. It is also used to treat anxiety and tension. This medicine can be used with other medicines to induce sleep before surgery. How should I use this medicine? Take this medicine by mouth with a full glass of water. Follow the directions on the prescription label. You may take this medicine with food or on an empty stomach. Take your medicine at regular intervals. Do not take your medicine more often than directed. Talk to your airconditioning engineer regarding the use of this medicine in children. Special care may be needed. While this drug may be prescribed for children as young as 6 years of age for selected conditions, precautions do apply. Patients over 65 years old may have a stronger reaction and need a smaller dose. What side effects may I notice from receiving this medicine? Side effects that you should report to your doctor or health child day care center worker as soon as possible: fast or irregular heartbeat difficulty passing urine seizures slurred speech or confusion tremor Side effects that usually do not require medical attention (report to your doctor or health child day care center worker if they continue or are bothersome): constipation drowsiness fatigue headache stomach upset What may interact with this medicine? alcohol barbiturate medicines for sleep or seizures medicines for colds, allergies medicines for depression, anxiety, or emotional disturbances medicines for pain medicines for sleep muscle relaxants What if I miss a dose? If you miss a dose, take it as soon as you can. If it is almost time for your next dose, take only that dose. Do not take double or extra doses. Where should I keep my medicine? Keep out of the reach of children. Store at room temperature between 15 and 30 degrees C (59 and 86 degrees F). Keep container tightly closed. Throw away any unused medicine after the expiration date. What should I tell my health care provider before I take this medicine? They need to know if you have any of these conditions: any chronic illness difficulty passing urine glaucoma heart disease kidney disease liver disease lung disease an unusual or allergic reaction to hydroxyzine, cetirizine, other medicines, foods, dyes, or preservatives or trying to get breast-feeding What should I watch for while using this medicine? Tell your doctor or health child day care center worker if your symptoms do not improve. You may get drowsy or dizzy. Do not drive, use machinery, or do anything that needs mental alertness until you know how this medicine affects you. Do not stand or sit up quickly, especially if you are an older patient. This reduces the risk of dizzy or fainting spells. Alcohol may interfere with the effect of this medicine. Avoid alcoholic drinks. Your mouth may get dry. Chewing sugarless gum or sucking hard candy, and drinking plenty of water may help. Contact your doctor if the problem does not go away or is severe. This medicine may cause dry eyes and blurred vision. If you wear contact lenses you may feel some discomfort. Lubricating drops may help. See your eye doctor if the problem does not go away or is severe. If you are receiving skin tests for allergies, tell your doctor you are using this medicine. You have been given the following additional information: Normal Exam, (Child) (Adult) Anxiety Reaction Panic Attack Hydroxyzine Pamoate Oral capsule (Electronically signed by Phylicia Hassan A.R.N.P. 02/04/2017 23:06)
--- NOTE | 2017-02-04 23:06 | ED MAR SUMMARY ---
..... Medication Administration Record [facility] [address] [place] [address] Patient: ALEX ALTAMIRANO Visit ID: [id number] 56y, M Weight: 127.9 kg Height/Length: 66 in BMI: 45.5 ALLERGIES: Latex Given 17:42 02/04/2017 Tha Napoles R.N. Medication Administered: HYDROXYZINE [PO] (HYDROXYZINE HCL), Dose: 25 mg PO. Medication Ordered: HydrOXYzine PO 25 mg (NOW).
--- NOTE | 2017-02-04 23:06 | ED MED RECONCILIATION SUMMARY ---
Patient: ALEX ALTAMIRANO Medication Reconciliation Report [facility] VisitID: [id number] [address] [place] [address] 56y, M Registration Date/Time: 02/04/2017 Weight: 127.9 kg Height/Length: 66 in. BMI: 45.5 ALLERGIES: Latex The patient's Home Medications are listed below: THE FOLLOWING MEDICATIONS NEED TO BE RECONCILED: Allopurinol Oral 40mg , 2x a day AmLODIPine Besylate Oral, pt unsure of dose Aspirin Oral (81 mg), daily Atorvastatin Calcium Oral, daily, pt unsure of dose Carvedilol Phosphate ER Oral, pt unsure of dose Cyclobenzaprine HCl Oral Gabapentin Oral 300 mg, daily Ketorolac Tromethamine Oral Lasix Oral 40 mg, daily Latuda Oral, pt unsure of dose Lisinopril Oral 20 mg, daily MetFORMIN HCl Oral 500 mg, daily Plavix Oral 75 mg, daily The source(s) of the original Home Medication information: patient The following Medications were given to the patient in the Emergency Department: Hydroxyzine [PO] PO 25 mg, administered: 02/04/2017 5:42:00 PM The following Medications were prescribed to the patient: Hydroxyzine 50 mg: Take 1 orally every 6 hours as needed for anxiety. Dispense twenty (20). No refills. -- Phylicia Hassan A.R.N.P.
--- NOTE | 2017-02-04 23:06 | ED MED RECONCILIATION SUMMARY ---
Patient: ALEX ALTAMIRANO Medication Reconciliation Report [facility] VisitID: [id number] [address] [place] [address] 56y, M Registration Date/Time: 02/04/2017 Weight: 127.9 kg Height/Length: 66 in. BMI: 45.5 ALLERGIES: Latex The patient's Home Medications are listed below: THE FOLLOWING MEDICATIONS NEED TO BE RECONCILED: Allopurinol Oral 40mg , 2x a day AmLODIPine Besylate Oral, pt unsure of dose Aspirin Oral (81 mg), daily Atorvastatin Calcium Oral, daily, pt unsure of dose Carvedilol Phosphate ER Oral, pt unsure of dose Cyclobenzaprine HCl Oral Gabapentin Oral 300 mg, daily Ketorolac Tromethamine Oral Lasix Oral 40 mg, daily Latuda Oral, pt unsure of dose Lisinopril Oral 20 mg, daily MetFORMIN HCl Oral 500 mg, daily Plavix Oral 75 mg, daily The source(s) of the original Home Medication information: patient The following Medications were given to the patient in the Emergency Department: Hydroxyzine [PO] PO 25 mg, administered: 02/04/2017 5:42:00 PM The following Medications were prescribed to the patient: Hydroxyzine 50 mg: Take 1 orally every 6 hours as needed for anxiety. Dispense twenty (20). No refills. -- Phylicia Hassan A.R.N.P.
--- NOTE | 2017-02-04 23:06 | ED MAR SUMMARY ---
..... Medication Administration Record [facility] [address] [place] [address] Patient: ALEX ALTAMIRANO Visit ID: [id number] 56y, M Weight: 127.9 kg Height/Length: 66 in BMI: 45.5 ALLERGIES: Latex Given 17:42 02/04/2017 Tha Napoles R.N. Medication Administered: HYDROXYZINE [PO] (HYDROXYZINE HCL), Dose: 25 mg PO. Medication Ordered: HydrOXYzine PO 25 mg (NOW).
== END 2017-02-04 17:52 | disposition home or self-care (01) ==
LOC: ED SRH 16:45
DX: F41.1 Generalized anxiety disorder (principal); I11.0 Hypertensive heart disease with heart failure; I50.9 Heart failure, unspecified; E78.00 Pure hypercholesterolemia, unspecified; E11.9 Type 2 diabetes mellitus without complications; I25.10 Atherosclerotic heart disease of native coronary artery without angina pectoris; Z72.0 Tobacco use; Z79.82 Long term (current) use of aspirin; Z79.84 Long term (current) use of oral hypoglycemic drugs; Z79.1 Long term (current) use of non-steroidal anti-inflammatories (NSAID)